=== PATIENT | female | born 1945 | race Caucasian/White ===

== ENCOUNTER 2016-12-22 11:08 | Inpatient (IN) | payer MEDICAID, MEDICARE ==
[~2016-12-22] VITALS: Ht 154.9 cm; Wt 46.5 kg
[~2016-12-22 11:08] MED LIST: ALBU17IN INH; ASPI81TA4 PO; BENZ100C5 PO; BISA10SU PR; BUDESONIDE INH; CALCIUM+VIT D PO; FORMOTEROL INH; GABA100C PO; INSULANT SC; LISI5TAB PO; METFORMIN PO; METO12TA PO; NICO14PA EXT; OXYBUTYNIN PO; PRIL20CA PO; SIMV20TA2 PO; TRAMADOL PO; VENTAER INH; [UNRECOGNIZED DRUG - OTHER] INH
[2016-12-22 12:12] LABS: BASO % 0.3 % (0.0-1.0); EOS % 0.4 % (0.0-3.0); LARGE UNSTAINED CELL # 0.3 K/mm3 (0.0-0.4); LARGE UNSTAINED CELL % 2.5 % (0.0-4.0); LYMPH # 1.2 K/mm3 (1.5-4.5); LYMPH % 10.9 % (24.0-44.0); MEAN CORPUSCULAR HEMOGLOBIN 29.9 pg (27.0-33.0); MEAN CORPUSCULAR HGB CONC 33.5 g/dl (32.0-36.5); MEAN CORPUSCULAR VOLUME 89.2 fl (80.0-96.0); MONO # 0.6 K/mm3 (0.0-0.8); MONO % 5.5 % (0.0-5.0); NEUTROPHILS # 8.7 K/mm3 (1.8-7.7); NEUTROPHILS % 80.4 % (36.0-66.0); PLATELET COUNT, AUTOMATED 625 k/mm3 (150-450); RED CELL DISTRIBUTION WIDTH 12.2 % (11.5-14.5); WHITE BLOOD COUNT 10.9 K/mm3 (4.0-10.0)
--- NOTE | 2016-12-22 12:19 | REP ---
Clinical: Cough. Technique: PA chest. Comparison: 01/03/2016. Findings: Mediastinum and cardiac silhouette are normal. Lung mancia are clear without acute consolidation, effusion, or pneumothorax. Skeletal structures demonstrate degenerative changes to the thoracic spine. Impression: No obvious acute cardiopulmonary process. Signed by Mau Hopper MD 12/22/2016 12:11 P
--- NOTE | 2016-12-22 12:21 | REP ---
CT HEAD WITHOUT CONTRAST: HISTORY: Altered mental status. Areas of decreased attenuation are present in the periventricular and subcortical white matter. This represents small vessel ischemic disease. There is no intraparenchymal hemorrhage, mass or midline shift. The ventricular system and cortical sulci are dilated consistent with minimal volume loss. There is no extracerebral collection. Mucosal thickening is present in the ethmoid, frontal and maxillary sinuses. IMPRESSION: 1. Small vessel ischemic disease. 2. Minimal volume loss. Signed by Jt Ocampo MD 12/22/2016 12:47 P
[2016-12-22 12:34] LABS: ALBUMIN/GLOBULIN RATIO 0.58 (1.00-1.93); ALKALINE PHOSPHATASE 87 U/L (45-117); ALT/SGPT 17 U/L (12-78); ANION GAP 11 MEQ/L (8-16); AST/SGOT 17 U/L (15-37); BILIRUBIN,DIRECT 0.2 MG/DL (0.0-0.2); BILIRUBIN,TOTAL 0.7 MG/DL (0.2-1.0); BLOOD UREA NITROGEN 17 MG/DL (7-18); CALCIUM LEVEL 9.6 MG/DL (8.8-10.2); CARBON DIOXIDE LEVEL 26 MEQ/L (21-32); CHLORIDE LEVEL 100 MEQ/L (98-107); CREATININE FOR GFR 0.73 MG/DL (0.55-1.02); GLOMERULAR FILTRATION RATE > 60.0 (>39); GLUCOSE, FASTING 181 MG/DL (83-110); POTASSIUM SERUM 4.4 MEQ/L (3.5-5.1); SODIUM LEVEL 137 MEQ/L (136-145); TOTAL PROTEIN 8.2 GM/DL (6.4-8.2)
--- NOTE | 2016-12-22 14:55 | REP ---
Clinical: Trauma. Technique: Single AP view of the pelvis. Findings: Age-related osteopenia and degenerative changes including diffuse and is up at the appears symmetric. No acute fracture or dislocation. Impression: Age-related osteopenia and degenerative changes. No acute fracture dislocation identified. Signed by Mau Hopper MD 12/22/2016 02:47 P
[2016-12-22 17:52] LABS: ABG BASE EXCESS 0.4 (-2.0-2.0); ABG DEVICE NASAL CANN; ABG HCO3 23.3 MEQ/L (22.0-26.0); ABG PARTIAL PRESSURE CO2 32.2 mmHg (35.0-45.0); ABG PARTIAL PRESSURE O2 164.3 mmHg (75.0-100.0); ABG STANDARD HCO3 24.9 MEQ/L (22.0-26.0); ABG TOTAL CO2 24.3 MEQ/L (23.0-31.0); ABG pH (ARTERIAL) 7.477 UNITS (7.350-7.450)
[2016-12-22] MEDS ORDERED: ACETAMINOPHEN TAB 650MG DOSE (2X325MG) PO PRN (19:30)
[2016-12-22] MEDS ORDERED: ONDANSETRON 4MG/2ML VIAL (J2405) IV PRN (19:30)
[2016-12-22 19:48] LABS: AMPHETAMINES LEVEL URINE NEGATIVE (NEGATIVE); BENZODIAZEPINES URINE NEGATIVE (NEGATIVE); COCAINE METABOLITE URINE NEGATIVE (NEGATIVE); CONTROL LINE INT CTR LINE PRESENT; METHADONE URINE NEGATIVE (NEGATIVE); OPIATES URINE NEGATIVE (NEGATIVE); TRICYCLIC ANTIDEPRESS URINE NEGATIVE (NEGATIVE)
[2016-12-22] MEDS ORDERED: TRAM50TA2 PO (19:55)
[2016-12-22] MEDS ORDERED: OXYB5TA PO (19:55)
[2016-12-22] MEDS ORDERED: ASPI1TAB PO (19:55)
[2016-12-22] MEDS ORDERED: GABA600T PO (19:55)
[2016-12-22] MEDS ORDERED: LISI-542 PO (19:55)
[2016-12-22] MEDS ORDERED: CETI10TA PO (19:55)
[2016-12-22] MEDS ORDERED: INSULANT SC (19:55)
[2016-12-22] MEDS ORDERED: CRES20TA PO (19:55)
[2016-12-22] MEDS ORDERED: SYMB16INH INH (19:55)
[2016-12-22] MEDS ORDERED: VITA100066 PO (19:55)
[2016-12-22] MEDS ORDERED: OMEP40CA2 PO (19:55)
[2016-12-22] MEDS ORDERED: DONETAB5 PO (19:55)
[2016-12-22] MEDS ORDERED: ANOR1AER INH (19:55)
[2016-12-22] MEDS ORDERED: DRIS50002 PO (19:55)
--- NOTE | 2016-12-22 20:40 | REPUSA ---
MRI of the brain Clinical history: altered mental status. Technique: Multiecho multiplanar MRI images of the brain were obtained without administration of cont rast. Diffusion weighted images with ADC mapping was also obtained. Findings: The ventricles and sulci are symmetric bilaterally. The brain parenchyma demonstrates T2 hyperintensi ty in the periventricular and subcortical white matter bilaterally. There is no midline shift, mass e ffect, or extra-axial fluid collection. The midline intracranial structures do not demonstrate any gr oss abnormalities. The cervical cranial junction is intact. The orbits are unremarkable. There is com plete fluid opacification of the maxillary sinuses bilaterally. The mastoid air cells are clear. The osseous structures and superficial soft tissues are unremarkable. The vascular structures demonstrate appropriate flow voids. Impression: 1. No evidence of acute infarct. 2. Mild chronic small vessel ischemic changes. 3. Bilateral maxillary sinusitis. The hospitalist was notified of these findings at 8:37 PM on 12/22/2016.
[2016-12-22] MEDS ORDERED: traMADol 50 MG TAB PO PRN (20:45)
[2016-12-22] MEDS ORDERED: GLUCAGON FOR INJ 1 MG VIAL (J1610) SC PRN (20:45)
[2016-12-22] MEDS ORDERED: DEXTROSE 50% 50 ML SYRINGE IV PRN (20:45)
[2016-12-22] MEDS ORDERED: GLUCOSE 4 GM CHEW TABLET PO PRN (20:45)
--- NOTE | 2016-12-22 20:50 | REPUSA ---
MRA of the brain Clinical history: altered mental status. Technique: [id number] MRA images of the brain were obtained without administration of contrast. 3 -D MIP images were also obtained. Findings: The images are suboptimal, likely because of patient motion during the scan. The visualized portions of the vascular structures extending from the distal carotid and vertebrobasilar arterial s ystems, through the [place], demonstrate normal caliber and contour. There is no evidence of aneurysm, stenosis, or thrombosis. Impression: No gross abnormality on this suboptimal study as described. The hospitalist was notified of these findings at 8:30 PM on 12/22/2016.
[2016-12-22] MEDS ORDERED: traMADol 50 MG TAB As Ordered ONE (21:16)
--- NOTE | 2016-12-22 22:26 | HPE ---
DATE OF ADMISSION: 12/22/2016 INPATIENT HOSPITALIST ATTENDING: Dr. Mario Felton CHIEF COMPLAINT: Confusion. HISTORY OF PRESENT ILLNESS: This is a 71-year-old female with a history of type 2 diabetes, insulin dependent, reflux, hypercholesterolemia, diabetic neuropathy , tubal ligation, dilatation and curettage, left leg skin cancer, bilateral cataract surgery, active smoker of a half of a pack per day for several years, who presents to the emergency room after being brought in by family due to increasing confusion. According to the patient, she had been having a cough for the past week. No fever or chills. White-yellow sputum. Complains of nasal congestion without nausea or vomiting, diarrhea. Denies dysuria, urgency, frequency, fever, chills, abdominal pain, constipation or diarrhea. The patient was brought in by family and was found to have bilateral maxillary sinusitis on MRI.Laboratory data showed slight increase in white count, 10.9, otherwise metabolic panel is unremarkable. The hospitalist service was called for admission for evaluation of altered mental status. The patient is disoriented, states that it is December. Was able to say that it is 2016. She is confused with baseline dementia. Unable to obtain a full history. PAST MEDICAL HISTORY: 1. Insulin-dependent diabetes. 2. Reflux. 3. Hypercholesterolemia. 4. Neuropathy. 5. Dementia. 6. Left leg cancer. PAST SURGICAL HISTORY: 1. Left leg cancer of the skin. 2. Tubal ligation. 3. Dilatation and curettage. 4. Bilateral cataract surgery. ALLERGIES: DOXYCYCLINE. HOME MEDICATIONS: - donepezil 5 daily - cetirizine 10 daily - oxybutynin 5 mg twice a day - gabapentin 600 three times a day - tramadol 50 three times a day - Lantus insulin unknown dose daily - vitamin D over the counter, unknown dose - aspirin 81 mg daily - Prilosec 40 daily - Crestor 20 daily - Lisinopril 5 daily SOCIAL HISTORY: The patient lives at home with daughter, Mary, phone number [phone]. Actively smokes cigarettes, less than a half of a pack per day since her teens. The patient is retired, could not tell us what kind of work she used do. FAMILY HISTORY: Noncontributory due to age. REVIEW OF SYSTEMS: As per history of present illness, the patient is somewhat disoriented, could not provide a full review of systems. PHYSICAL EXAMINATION: VITAL SIGNS: Blood pressure 105/59, pulse 104 and sinus, respiratory rate 20, temperature 97.2, 97% on room air, 48.9 kg, 5 feet 1 inch tall. GENERAL: The patient is awake, alert, oriented to person only. Disoriented to time and place. Pupils are round and reactive. Extraocular muscles are intact. Normocephalic, atraumatic. Patient has maxillary tenderness bilaterally. No pallor. No icterus. No jaundice. No jugular venous distention (JVD). LUNGS: Clear to auscultation. No wheezing, rales or rhonchi. HEART: S1, S2. Sinus rhythm. ABDOMEN: Soft, nontender, nondistended. Positive bowel sounds. EXTREMITIES: No cyanosis, clubbing or pitting edema. LABORATORY DATA: wbc 10.9 hgb 13 hct 41 plt 625 na 137 k 4.4 cl 100 bicarb 26 bun17 creat 0.73 gluc 181 ca 9.6 total bili 0.7 d bili 0.2 ast 17 alt 17 alk phos 87 ammonia <10 total ck 93 ckmb1.6 ck mb rel indxc 2.19 trop 0.11 EKG: Sinus with a ventricular rate of 77, intraventricular conduction delay and left ventricular hypertrophy. CT of the head: Small vessel ischemic disease, minimal volume loss. MRI of the brain showing chronic small vessel ischemic disease, bilateral maxillary sinusitis. AP view of the pelvis x-ray: Age related osteopenia, degenerative changes. No acute fracture or dislocation. Chest x-ray: Lung mancia are clear. No obvious acute cardiopulmonary process. ASSESSMENT AND PLAN: 71-year-old female with a history of type 2 diabetes on insulin, reflux, hypercholesterolemia, neuropathy, dementia, left leg skin cancer, tubal ligation, dilatation and curettage, cataract surgery bilaterally, active smoker, presents to the emergency room, brought in by family due to confusion. The patient states that she has had a cough for the past one week with white-yellow sputum production. Found on MRI to have bilateral acute sinusitis. The patient is disoriented to time and place. Admitted to the hospitalist service, Dr. Mario Felton, for two midnights for the following issues: 1. Acute mental status changes, most likely secondary to infection. The patient has complaints of cough productive of yellow-white sputum. MRI shows bilateral maxillary sinusitis. She will be treated with Augmentin 875 mg by mouth twice a day for a 7 day course. Obtain a sputum culture. Chest x-ray is negative, most likely bronchitis. Nebulizer treatments as needed. Supplemental oxygen if saturations are less than 88%. UA is unremarkable. The patient will be medically stable on the medical/surgical floor. 2. Type 2 diabetes. Glucose level was normal on laboratory data. Continue on Lantus insulin, sliding scale, and consistent carbohydrate diet. Continue on aspirin. 3. Hypertension. Continue on Lisinopril. Monitor for low blood pressure, orthostatics and elevated creatinine. 4. Hyperlipidemia. Continue on Crestor. 5. History of reflux. Continue on omeprazole. 6. Diabetic neuropathy. Continue on gabapentin. 7. Dementia. Continue home medications. 8. Deep vein thrombosis (DVT) prophylaxis with Lovenox renal dosing according to age. The patient will be assigned to Dr. Mario Felton in the morning. [facility]
[2016-12-22 22:55] VITALS: BP 137/65
--- NOTE | 2016-12-22 22:55 | EDDOCDS ---
Nurse's Notes [facility] Name: Arti Young Age: 71 yrs Sex: Female : 1945 Arrival Date: 12/22/2016 Time: 11:08 Bed 1 Private MD: Diagnosis: Altered mental status, unspecified Presentation: 12/22 11:16 Presenting complaint: Patient states: im not quite coherent- started today. legs hurt. [facility] Adult Sepsis Screening: Patient has new or worsening altered mentation (1 point). Patient's respiratory rate is less than 22. Systolic blood pressure is greater than 100. Patient has a qSOFA score of 0- Negative Sepsis Screen. Suicide/Homicide risk assessment- the patient denies having any suicidal and/or homicidal ideations and does not present with any other emotional, behavioral or mental health complaints. Status: Patient is not a support services tech or dependent. Transition of care: patient was not received from another setting of care. 11:16 Method Of Arrival: Walkin/Carried/Asstd [facility] 11:16 Acuity: ELADIO Level 3 [facility] 11:22 Presenting complaint: Patient states: cough and cold symptoms for a few days. [facility] Triage Assessment: 11:22 General: Appears in no apparent distress, Behavior is appropriate for age, cooperative. [facility] Pain: Pain currently is 6 out of 10 on a pain scale. Neurological: Level of Consciousness is awake, alert, Oriented to person, place, Speech is normal, slow to answer questions. Facial symmetry appears normal. Historical: - Allergies: DOXACILLIN; - Home Meds: 1. donepezil 5 mg oral TbDL 1 tab once daily (Last dose: 12/21/2016) 2. cetirizine 10 mg oral tab 1 tab once daily (Last dose: 12/21/2016) 3. oxybutynin chloride 5 mg Oral tab 1 tab 2 times per day (Last dose: 12/21/2016) 4. anoro daily 5. gabapentin 600 mg Oral tab 1 tab 3 times per day 6. tramadol 50 mg Oral tab three times a day 7. Lantus 100 unit/mL Sub-Q soln Unknown daily 8. Vitamin D Oral Unknown daily OTC med 9. aspirin 81 mg Oral chew 1 tab nightly 10. omeprazole 40 mg Oral cpDR 1 cap once daily 11. Crestor 20 mg Oral tab 1 tab once daily 12. lisinopril 5 mg Oral tab 1 tab once daily - PMHx: Diabetes - IDDM: controlled; GERD; Hypercholesterolemia; neuropathy; - PSHx: left leg cancer skin; Tubal ligation; D & C; Cataract Surgery- Bilateral; - Social history: Smoking status: Patient uses tobacco products, current every day smoker. No barriers to communication noted. - Family history: Not pertinent. - : The pt / caregiver states he / she is not on anticoagulants. Home medication list is obtained from the patient. - Exposure Risk Screening:: None identified. Screenin:14 No information. lr2 12:10 Screening information is obtained from the patient. Fall risk: At risk due to apparent ck1 cognitive impairment, The following interventions are performed due to a positive Fall Risk Screen: Fall Risk is added to Special Handling on the patient Summary Screen. A Fall Risk Bracelet was applied to the patient. Side Rails are placed in the up position. A Call [place] is given with instruction to call for help when getting out of bed. Fall Alert bracelet is placed on the patient. Assistance ADL's: Requires assistance with meal preparation, this assistance is provided by family members, bathing, assistance is provided by family members, dressing, assistance is provided by family members, toileting, assistance is provided by family members, ambulation, assistance is provided by family members, housework, assistance is provided by family members, medication administration, assistance is provided by family members. Abuse/DV Screen: The patient / caregiver reports he/she is: not in a situation that causes fear, pain or injury. Nutritional screening: No deficits noted. home support is adequate. 12:11 Advance Directives: There is no active DNR order. ck1 Assessment: 12:11 General: Appears in no apparent distress, comfortable, Behavior is appropriate for age, ck1 cooperative. Pain: Location: left hip and right hip Is chronic. Neurological: Level of Consciousness is awake, Oriented to person, place. Cardiovascular: Rhythm is sinus rhythm Chest pain is denied. Respiratory: Respiratory effort is unlabored, Respiratory pattern is regular, symmetrical, Reports cough that is productive. GI: No deficits noted. Derm: Skin is intact, is fragile, is thin, Skin is pink, warm & dry. 13:19 General: Appears in no apparent distress, comfortable, talking on phone . Neurological: dsf Level of Consciousness is awake, alert. Cardiovascular: Rhythm is sinus rhythm. Respiratory: Airway is patent Respiratory effort is unlabored, Respiratory pattern is regular, symmetrical. Derm: Skin is pink, warm & dry. 14:15 General: Appears in no apparent distress, comfortable, Behavior is appropriate for age, ck1 cooperative. Pain: Location: right hip and left hip Is chronic. Neurological: Level of Consciousness is awake, alert, obeys commands, Oriented to person, place. Cardiovascular: Rhythm is sinus rhythm Chest pain is denied. Respiratory: Respiratory effort is unlabored, Respiratory pattern is regular, symmetrical. GI: No deficits noted. Derm: Skin is intact, is fragile, is thin, Skin is pink, warm & dry. 15:00 General: Patient is sitting up on stretcher eating lunch. No acute distress noted at ck1 this time. Call light in reach, will continue to monitor patient. 15:33 General: Appears in no apparent distress, comfortable, Behavior is appropriate for age, ck1 cooperative. Pain: Denies pain. Neurological: Level of Consciousness is awake, alert, obeys commands. Cardiovascular: Rhythm is sinus rhythm Chest pain is denied. GI: other tolerated diet tray without difficulty. Derm: Skin is intact, is fragile, is thin, Skin is pink, warm & dry. 16:30 General: Appears in no apparent distress, comfortable, Behavior is appropriate for age, ck1 cooperative. Pain: Denies pain. Neurological: Level of Consciousness is awake, alert, obeys commands, Oriented to person, place. Cardiovascular: Rhythm is sinus rhythm Chest pain is denied. Respiratory: Respiratory effort is unlabored, Respiratory pattern is regular, symmetrical. GI: No deficits noted. Derm: Skin is pink, warm & dry. 17:30 Reassessment: Patient appears in no apparent distress at this time. ck1 18:06 General: Patient is resting quietly on stretcher. Requesting to speak with daughter on ck1 phone. Attempted to call daughter at home, no answer. patient informed that she will be admitted to hospital at least over night for observation. Patient verbalized understanding. No acute distress noted at this time. Call light in reach, will continue to monitor patient. Vital Signs: 11:01 BP 105 / 59 (auto/); ck1 11:02 Pulse 104 MON; Pulse Ox 97% ; ck1 11:10 BP 174 / 67; Pulse 90; Resp 20; Temp 97.2(O); Pulse Ox 94% on R/A; Weight 48.99 kg (R); lr2 Height 5 ft. 1 in. (154.94 cm); 12:00 BP 143 / 67 (auto/); ck1 12:02 Pulse 76 MON; Pulse Ox 100% ; ck1 12:15 BP 144 / 63 (auto/); ck1 12:15 Pulse 74 MON; Pulse Ox 98% ; ck1 12:30 BP 147 / 65 (auto/); ck1 12:30 Pulse 76 MON; Pulse Ox 100% ; ck1 12:45 BP 151 / 72 (auto/); ck1 12:45 Pulse 84 MON; Pulse Ox 100% ; ck1 13:00 BP 140 / 63 (auto/); ck1 13:00 Pulse 72 MON; Pulse Ox 100% ; ck1 13:15 BP 146 / 67 (auto/); ck1 13:15 Pulse 83 MON; Pulse Ox 100% ; ck1 13:30 BP 161 / 71 (auto/); ck1 13:30 Pulse 78 MON; Pulse Ox 100% ; ck1 13:44 Pulse 78 MON; Pulse Ox 96% ; ck1 13:45 BP 151 / 67 (auto/); ck1 14:00 BP 170 / 66 (auto/); ck1 14:00 Pulse 74 MON; ck1 14:15 BP 157 / 60 (auto/); ck1 14:15 Pulse 73 MON; Pulse Ox 100% ; ck1 14:36 BP 169 / 65 (auto/); ck1 14:36 Pulse 80 MON; Pulse Ox 98% ; ck1 14:51 BP 143 / 66 (auto/); ck1 14:51 Pulse 74 MON; Pulse Ox 100% ; ck1 15:06 BP 164 / 72 (auto/); ck1 15:06 Pulse 84 MON; Pulse Ox 100% ; ck1 15:21 BP 165 / 70 (auto/); ck1 15:21 Pulse 80 MON; Pulse Ox 100% ; ck1 15:36 Resp 18; Temp 97.6(O); ck1 15:36 BP 153 / 67 (auto/); ck1 15:36 Pulse 73 MON; Pulse Ox 100% ; ck1 15:39 Pulse 72 MON; Pulse Ox 100% ; ck1 15:51 BP 152 / 67 (auto/); ck1 15:51 Pulse 77 MON; ck1 16:05 Pulse 71 MON; Pulse Ox 100% ; ck1 16:06 BP 144 / 64 (auto/); ck1 16:21 BP 164 / 82 (auto/); ck1 16:21 Pulse 86 MON; Pulse Ox 100% ; ck1 16:36 BP 150 / 62 (auto/); ck1 16:38 Pulse 77 MON; Pulse Ox 100% ; ck1 16:51 BP 150 / 67 (auto/); ck1 16:51 Pulse 76 MON; Pulse Ox 100% ; ck1 17:06 BP 148 / 67 (auto/); ck1 17:06 Pulse 72 MON; Pulse Ox 100% ; ck1 17:21 BP 153 / 68 (auto/); ck1 17:21 Pulse 79 MON; Pulse Ox 100% ; ck1 17:30 Pulse 77 MON; Pulse Ox 100% ; ck1 17:35 Pulse 78 MON; ck1 17:36 BP 152 / 63 (auto/); ck1 18:01 BP 167 / 73 (auto/); ck1 18:01 Pulse 75 MON; Pulse Ox 100% ; ck1 11:10 Body Mass Index 20.41 (48.99 kg, 154.94 cm) lr2 Vitals: 11:10 Log In Time: December 22, 2016 at 11:08. lr2 ED Course: 11:10 Patient visited by Kelly Ramirez. lr2 11:10 Patient moved to Waiting lr2 11:14 Patient moved to Pre RCE lr2 11:17 Triage Initiated srm 11:24 Patient moved to I9 / 22 srm 11:28 Ifrah Crocker MD is Attending Physician. sd1 11:28 Patient visited by Ifrah Crocker MD. sd1 11:43 Yanna Almazan,RN is Primary Nurse. mcp 11:43 Patient moved to 1 mcp 12:00 EKG done. (by ED staff). Reviewed by Ifrah Crocker MD. nb2 12:03 Patient visited by Kiana Chatman. nb2 12:09 BLOOD CULTURES Sent. ck1 12:09 Inserted saline lock: 20 gauge in right antecubital area and blood collected. The ck1 patient tolerated the procedure well. 12:12 The patient / caregiver is instructed regarding the plan of care and ED course. ck1 12:25 Chest, 1 View Returned. EDMS 12:25 CT Head Without Contrast Returned. EDMS 12:34 Patient visited by Yanna lAmazan,AARON. ck1 12:34 LIVER PROFILE Sent. ck1 13:05 Patient visited by Yanna Almazan RN. ck1 13:19 Patient visited by Maris Esteban RN. dsf 13:58 Patient visited by Yanna Almazan,AARON. ck1 14:08 CARDIAC INJURY PROFILE Sent. ms2 14:08 TROPONIN Sent. ms2 14:11 Patient visited by Yanna Almazan RN. ck1 14:42 Patient visited by Yanna Almazan,AARON. ck1 14:56 Diet tray given. ck1 15:29 Patient visited by Yanna Almazan RN. ck1 15:39 Pelvis Returned. EDMS 16:00 Patient visited by Yanna Almazan RN. ck1 16:08 [facility] Payment Agreement was scanned into [employer] and attached to record. zo 16:32 Patient visited by Yanna Almazan RN. ck1 17:36 Family spoke with Daughter Kaylee Billy, , went over MRI screen with mem daughter. Discussed mother's condition with daughter after speaking with Dr. Ifrah Ramires. Informed Kaylee that per Dr. Ramires, all labs are normal and ct is normal. We are keeping patient here as an admission to perform further testing. Daughter will come in to see her mother when able to obtain salesperson children's shoes. Daughter appreciative of the information given. Reassured daughter, patient will be well taken care of. 17:37 -Arterial Blood Gas Sent. km6 17:52 Patient visited by Yanna Almazan RN. ck1 18:01 Ammonia ([place] Tube on Ice, Not [place]a [place]) Sent. ck1 18:25 Patient visited by Yanna Almazan RN. ck1 18:42 Megan Arzola is Hospitalizing Provider. sd1 18:50 Primary Nurse role handed off by Yanna Almazan,AARON ck1 19:10 Mare Theodore,AARON is Primary Nurse. cf2 19:10 Patient visited by Mare Theodore RN. cf2 19:28 Urine Toxicology Sent. cf2 20:07 Patient visited by Mare Theodore,AARON. cf2 20:22 Patient visited by Mare Theodore,AARON. cf2 20:24 No procedures done that require assistance. cf2 20:36 Patient visited by Nilda Brock PCA. rs6 21:08 -MRI-Brain without Returned. EDMS 21:08 -MRA-Brain without contrast Returned. EDMS 21:41 UA Sent. cf2 21:41 Urine Culture Sent. cf2 22:43 Patient visited by Mare Theodore,AARON. cf2 Administered Medications: 12:09 Drug: NS 0.9% 1000 ml [sodium chloride 0.9 % intravenous solution] Route: IV; Rate: 250 ck1 mL/hr; Site: right antecubital; 16:32 Follow up: IV Status: Completed infusion ck1 21:22 Drug: traMADol 50 mg [tramadol 50 mg tablet (1 tabs)] Route: PO; cf2 22:05 Follow up: Response: No significant change. cf2 RT: 17:37 ABG's drawn from right radial artery allens test done and positive pressure held for 5 km6 minutes specimen sent pt. tolerated well. Order Results: Lab Order: B-Type Natiuretic Peptide; SPEC'M 12/22/16 12:01 Test: BRAIN NATRIURETIC PEPTIDE; Value: 119; Range: <100; Abnormal: Above high normal; Units: PG/ML; Status: F Lab Order: Basic Metabolic Profile; SPEC'M 12/22/16 12:01 Test: GLUCOSE, FASTING; Value: 181; Range: 83-110; Abnormal: Above high normal; Units: MG/DL; Status: F Test: BLOOD UREA NITROGEN; Value: 17; Range: 7-18; Units: MG/DL; Status: F Test: CREATININE FOR GFR; Value: 0.73; Range: 0.55-1.02; Units: MG/DL; Status: F Test: GLOMERULAR FILTRATION RATE; Value: > 60.0; Range: >39; Status: F Test: SODIUM LEVEL; Value: 137; Range: 136-145; Units: MEQ/L; Status: F Test: POTASSIUM SERUM; Value: 4.4; Range: 3.5-5.1; Units: MEQ/L; Status: F Test: CHLORIDE LEVEL; Value: 100; Range: 98-107; Units: MEQ/L; Status: F Test: CARBON DIOXIDE LEVEL; Value: 26; Range: 21-32; Units: MEQ/L; Status: F Test: ANION GAP; Value: 11; Range: 8-16; Units: MEQ/L; Status: F Test: CALCIUM LEVEL; Value: 9.6; Range: 8.8-10.2; Units: MG/DL; Status: F Test Note: ; Units are mL/min/1.73 m2 Chronic Kidney Disease Staging per NKF: Stage I & II GFR >=60 Normal to Mildly Decreased Stage III GFR 30-59 Moderately Decreased Stage IV GFR 15-29 Severely Decreased Stage V GFR <15 Very Little GFR Left ESRD GFR <15 on MONOTYPE OPERATOR Lab Order: CBC with Diff; SPEC'M 12/22/16 12:01 Test: WHITE BLOOD COUNT; Value: 10.9; Range: 4.0-10.0; Abnormal: Above high normal; Units: K/mm3; Status: F Test: RED BLOOD COUNT; Value: 4.64; Range: 4.00-5.40; Units: M/mm3; Status: F Test: HEMOGLOBIN; Value: 13.9; Range: 12.0-16.0; Units: g/dl; Status: F Test: HEMATOCRIT; Value: 41.4; Range: 36.0-47.0; Units: %; Status: F Test: MEAN CORPUSCULAR VOLUME; Value: 89.2; Range: 80.0-96.0; Units: fl; Status: F Test: MEAN CORPUSCULAR HEMOGLOBIN; Value: 29.9; Range: 27.0-33.0; Units: pg; Status: F Test: MEAN CORPUSCULAR HGB CONC; Value: 33.5; Range: 32.0-36.5; Units: g/dl; Status: F Test: RED CELL DISTRIBUTION WIDTH; Value: 12.2; Range: 11.5-14.5; Units: %; Status: F Test: PLATELET COUNT, AUTOMATED; Value: 625; Range: 150-450; Abnormal: Above high normal; Units: k/mm3; Status: F Test: NEUTROPHILS %; Value: 80.4; Range: 36.0-66.0; Abnormal: Above high normal; Units: %; Status: F Test: LYMPH %; Value: 10.9; Range: 24.0-44.0; Abnormal: Below low normal; Units: %; Status: F Test: MONO %; Value: 5.5; Range: 0.0-5.0; Abnormal: Above high normal; Units: %; Status: F Test: EOS %; Value: 0.4; Range: 0.0-3.0; Units: %; Status: F Test: BASO %; Value: 0.3; Range: 0.0-1.0; Units: %; Status: F Test: LARGE UNSTAINED CELL %; Value: 2.5; Range: 0.0-4.0; Units: %; Status: F Test: NEUTROPHILS #; Value: 8.7; Range: 1.8-7.7; Abnormal: Above high normal; Units: K/mm3; Status: F Test: LYMPH #; Value: 1.2; Range: 1.5-4.5; Abnormal: Below low normal; Units: K/mm3; Status: F Test: MONO #; Value: 0.6; Range: 0.0-0.8; Units: K/mm3; Status: F Test: EOS #; Value: 0.0; Range: 0.0-0.50; Units: K/mm3; Status: F Test: BASO #; Value: 0.0; Range: 0.0-0.2; Units: K/mm3; Status: F Test: LARGE UNSTAINED CELL #; Value: 0.3; Range: 0.0-0.4; Units: K/mm3; Status: F Lab Order: Cardiac Injury Profile; SPEC'M 12/22/16 12:01 Test: CPK CREATINE PHOSPHOKINASE; Value: 73; Range: 26-192; Units: U/L; Status: F Test: CK-MB VALUE MASS; Value: 1.6; Range: 0.0-3.6; Units: NG/ML; Status: F Test: MB/CK RELATIVE INDEX; Value: 2.19; Range: < OR =4; Status: F Test Note: ; DIAGNOSIS CRITERIA MMB ng/ml Relative Index (RI) NON-AMI < or = 5 N/A HERRERA ZONE > 5 < or = 4 AMI > 5 > 4 Lab Order: Troponin; [facility] 12/22/16 12:01 Test: TROPONIN I; Value: 0.11; Range: < 0.10; Abnormal: Above high normal; Units: NG/ML; Status: F Test Note: ; Troponin I Reference Interval for [employer]: 99th Percentile= 0.00-0.045 ng/ml Risk Stratification: <= 0.10 ng/ml Decreased Risk for Adverse Clinical Events. 0.10-1.50 ng/ml Increased Risk for Adverse Clinical Events. Evaluation of additional criterion and/or repeat testing in 2-6 hours is suggested to rule out myocardial damage. >= 1.50 ng/ml Indicative of Myocardial Injury. Lab Order: LIVER PROFILE; [facility] 12/22/16 12:01 Test: AST/SGOT; Value: 17; Range: 15-37; Units: U/L; Status: F Test: ALT/SGPT; Value: 17; Range: 12-78; Units: U/L; Status: F Test: ALKALINE PHOSPHATASE; Value: 87; Range: 45-117; Units: U/L; Status: F Test: BILIRUBIN,TOTAL; Value: 0.7; Range: 0.2-1.0; Units: MG/DL; Status: F Test: BILIRUBIN,DIRECT; Value: 0.2; Range: 0.0-0.2; Units: MG/DL; Status: F Test: TOTAL PROTEIN; Value: 8.2; Range: 6.4-8.2; Units: GM/DL; Status: F Test: ALBUMIN; Value: 3.0; Range: 3.2-5.2; Abnormal: Below low normal; Units: GM/DL; Status: F Test: ALBUMIN/GLOBULIN RATIO; Value: 0.58; Range: 1.00-1.93; Abnormal: Below low normal; Status: F Lab Order: TROPONIN; [facility] 12/22/16 14:03 Test: TROPONIN I; Value: 0.09; Range: < 0.10; Units: NG/ML; Status: F Test Note: ; Troponin I Reference Interval for [employer]: 99th Percentile= 0.00-0.045 ng/ml Risk Stratification: <= 0.10 ng/ml Decreased Risk for Adverse Clinical Events. 0.10-1.50 ng/ml Increased Risk for Adverse Clinical Events. Evaluation of additional criterion and/or repeat testing in 2-6 hours is suggested to rule out myocardial damage. >= 1.50 ng/ml Indicative of Myocardial Injury. Lab Order: CARDIAC INJURY PROFILE; SPEC'[facility] 12/22/16 14:03 Test: CPK CREATINE PHOSPHOKINASE; Value: 74; Range: 26-192; Units: U/L; Status: F Test: CK-MB VALUE MASS; Value: 1.9; Range: 0.0-3.6; Units: NG/ML; Status: F Test: MB/CK RELATIVE INDEX; Value: 2.56; Range: < OR =4; Status: F Test Note: ; DIAGNOSIS CRITERIA MMB ng/ml Relative Index (RI) NON-AMI < or = 5 N/A H[place]ERA ZONE > 5 < or = 4 AMI > 5 > 4 Lab Order: Urine Toxicology; SPEC'M 12/22/16 19:23 Test: AMPHETAMINES LEVEL URINE; Value: NEGATIVE; Range: NEGATIVE; Status: F Test: BARBITURATES URINE; Value: NEGATIVE; Range: NEGATIVE; Status: F Test: BENZODIAZEPINES URINE; Value: NEGATIVE; Range: NEGATIVE; Status: F Test: CANNABINOIDS URINE; Value: NEGATIVE; Range: NEGATIVE; Status: F Test: COCAINE METABOLITE URINE; Value: NEGATIVE; Range: NEGATIVE; Status: F Test: METHADONE URINE; Value: NEGATIVE; Range: NEGATIVE; Status: F Test: OPIATES URINE; Value: NEGATIVE; Range: NEGATIVE; Status: F Test: TRICYCLIC ANTIDEPRESS URINE; Value: NEGATIVE; Range: NEGATIVE; Status: F Test Note: ; ALL PRESUMPTIVE POSITIVE FINDINGS ARE UNCONFIRMED NORMAL VALUES THRESHOLD IN NG/ML AMPHETAMINES 1000 METHAMPHETAMINES 1000 BARBITURATES 300 BENZODIAZEPINES 300 CANNABINOIDS (THC) 50 COCAINE METABOLITE 300 METHADONE 300 OPIATES 300 PHENCYCLIDINE 25 TRICYCLIC ANTIDEPRESSANTS 1000 RESULTS ARE FOR MEDICAL PURPOSES ONLY. ALL URINE SPECIMENS WILL BE SAVED FOR 3 DAYS. IF CONFIRMATION OF A PRESUMPTIVE POSTIVE SCREEN RESULT IS DESIRED, CALL CHEMISTRY ([phone]) AND REQUEST URINE TO BE SENT TO REFERENCE LAB. FOR A LIST OF CLOSELY RELATED COMPOUNDS PLEASE CALL THE LAB. Lab Order: Ammonia ([place] Tube on Ice, Not [place]); [facility] 12/22/16 18:00 Test: AMMONIA; Value: < 10; Range: <32; Units: uMOL/L; Status: F Lab Order: -Arterial Blood Gas; [facility] 12/22/16 17:33 Test: ABG pH (ARTERIAL); Value: 7.477; Range: 7.350-7.450; Abnormal: Above high normal; Units: UNITS; Status: F Test: ABG PARTIAL PRESSURE CO2; Value: 32.2; Range: 35.0-45.0; Abnormal: Below low normal; Units: mmHg; Status: F Test: ABG PARTIAL PRESSURE O2; Value: 164.3; Range: 75.0-100.0; Abnormal: Above high normal; Units: mmHg; Status: F Test: ABG TOTAL CO2; Value: 24.3; Range: 23.0-31.0; Units: MEQ/L; Status: F Test: ABG HCO3; Value: 23.3; Range: 22.0-26.0; Units: MEQ/L; Status: F Test: ABG BASE EXCESS; Value: 0.4; Range: -2.0-2.0; Status: F Test: ABG STANDARD HCO3; Value: 24.9; Range: 22.0-26.0; Units: MEQ/L; Status: F Test: ABG O2 SATURATION; Value: 99.3; Range: 95.0-99.0; Abnormal: Above high normal; Units: %; Status: F Test: ABG DEVICE; Value: NASAL BIRDIE; Status: F Lab Order: UA; [facility] 12/22/16 19:23 Test: APPEARANCE, URINE; Value: HAZY; Range: CLEAR; Status: F Test: COLOR, URINE; Value: YELLOW; Range: YELLOW; Status: F Test: PH,URINE; Value: 6.0; Range: 5.0-9.0; Units: UNITS; Status: F Test: SPECIFIC GRAVITY URINE AUTO; Value: 1.018; Range: 1.002-1.035; Status: F Test: PROTEIN, URINE AUTO; Value: 2+; Range: NEGATIVE; Abnormal: Above high normal; Units: mg/dL; Status: F Test: GLUCOSE, URINE (UA) AUTO; Value: 3+; Range: NEGATIVE; Abnormal: Above high normal; Units: mg/dL; Status: F Test: KETONE, URINE AUTO; Value: 1+; Range: NEGATIVE; Abnormal: Above high normal; Units: mg/dL; Status: F Test: UROBILINOGEN, URINE AUTO; Value: 0.2; Range: 0.0-2.0; Units: mg/dL; Status: F Test: BILIRUBIN, URINE AUTO; Value: NEGATIVE; Range: NEGATIVE; Status: F Test: NITRITE, URINE AUTO; Value: NEGATIVE; Range: NEGATIVE; Status: F Test: LEUKOCYTE ESTERASE, URINE AUTO; Value: 1+; Range: NEGATIVE; Abnormal: Above high normal; Status: F Test: BLOOD, URINE BLOOD; Value: 1+; Range: NEGATIVE; Abnormal: Above high normal; Status: F Test: WBC, URINE AUTO; Value: 13; Range: 0-3; Abnormal: Above high normal; Units: /HPF; Status: F Test: RBC, URINE AUTO; Value: 8; Range: 0-3; Abnormal: Above high normal; Units: /HPF; Status: F Test: BACTERIA, URINE AUTO; Value: 1+; Range: NEGATIVE; Abnormal: Above high normal; Status: F Test: SQUAMOUS EPITHELIAL CELL UR AU; Value: 2; Range: 0-6; Units: /HPF; Status: F Test: MUCUS, URINE; Value: MODERATE; Range: NEGATIVE; Status: F Test: HYALINE CAST, URINE AUTO; Value: 4; Range: 0-1; Units: /LPF; Status: F Radiology Order: Chest, 1 View Test: Chest, 1 View REASON FOR EXAMINATION: Cough; Clinical: Cough.; ; Technique: PA chest.; ; Comparison: 01/03/2016.; ; Findings:; Mediastinum and cardiac silhouette are normal. Lung mancia are clear without; acute consolidation, effusion, or pneumothorax. Skeletal structures demonstrate; degenerative changes to the thoracic spine.; ; Impression:; No obvious acute cardiopulmonary process.; ; ; Signed by; Mau Hopper MD 12/22/2016 12:11 P; Radiology Order: CT Head Without Contrast Test: CT Head Without Contrast REASON FOR EXAMINATION: altered mental status; CT HEAD WITHOUT CONTRAST:; ; HISTORY: Altered mental status.; ; Areas of decreased attenuation are present in the periventricular and subcortical; white matter. This represents small vessel ischemic disease. There is no; intraparenchymal hemorrhage, mass or midline shift. The ventricular system and; cortical sulci are dilated consistent with minimal volume loss. There is no; extracerebral collection. Mucosal thickening is present in the ethmoid, frontal; and maxillary sinuses.; ; IMPRESSION:; ; 1. Small vessel ischemic disease.; ; 2. Minimal volume loss.; ; ; Signed by; Jt Ocampo MD 12/22/2016 12:47 P; Radiology Order: Pelvis Test: Pelvis REASON FOR EXAMINATION: Trauma; Clinical: Trauma.; ; Technique: Single AP view of the pelvis.; ; Findings:; Age-related osteopenia and degenerative changes including diffuse and is up at; the appears symmetric. No acute fracture or dislocation.; ; Impression:; Age-related osteopenia and degenerative changes. No acute fracture dislocation; identified.; ; ; Signed by; Mau Hopper MD 12/22/2016 02:47 P; Radiology Order: -MRA-Brain without contrast Test: -MRA-Brain without contrast REASON FOR EXAMINATION: altered mental status; ; MRA of the brain; Clinical history: altered mental status.; Technique: [id number] MRA images of the brain were obtained without administration of contrast. 3; -D MIP images were also obtained.; Findings: The images are suboptimal, likely because of patient motion during the scan. The visualized; portions of the vascular structures extending from the distal carotid and vertebrobasilar arterial s; ystems, through the [place], demonstrate normal caliber and contour. There is no evidence of; aneurysm, stenosis, or thrombosis.; Impression: No gross abnormality on this suboptimal study as described.; The hospitalist was notified of these findings at 8:30 PM on 12/22/2016.; ; Radiology Order: -MRI-Brain without Test: -MRI-Brain without REASON FOR EXAMINATION: alterd mental status; ; MRI of the brain; Clinical history: altered mental status.; Technique: Multiecho multiplanar MRI images of the brain were obtained without administration of cont; rast. Diffusion weighted images with ADC mapping was also obtained.; Findings:; The ventricles and sulci are symmetric bilaterally. The brain parenchyma demonstrates T2 hyperintensi; ty in the periventricular and subcortical white matter bilaterally. There is no midline shift, mass e; ffect, or extra-axial fluid collection. The midline intracranial structures do not demonstrate any gr; oss abnormalities. The cervical cranial junction is intact. The orbits are unremarkable. There is com; plete fluid opacification of the maxillary sinuses bilaterally. The mastoid air cells are clear. The; osseous structures and superficial soft tissues are unremarkable. The vascular structures demonstrate; appropriate flow voids.; Impression:; 1. No evidence of acute infarct.; 2. Mild chronic small vessel ischemic changes.; 3. Bilateral maxillary sinusitis.; The hospitalist was notified of these findings at 8:37 PM on 12/22/2016.; ; Outcome: 14:21 CT Study completed. ck1 18:42 Decision to Hospitalize by Provider. sd1 20:24 Condition: stable. Property :Personal belongings accompany Pt. cf2 22:43 Discharge Assessment: Patient awake, alert and oriented x 3. No cognitive and/or cf2 functional deficits noted. Patient verbalized understanding of disposition instructions. Patient awake and alert. Oriented to person, place and time. patient administered narcotics - yes. Patient was admitted to the hospital or transferred to another facility. The following High Risk Discharge criteria are identified: None. Admitted to Med/Surg. 22:54 Patient left the ED. cf2 Signatures: Dispatcher [employer] EDMS Ifrah Crocker MD MD sd1 Gerry Proctor RN RN [facility] [place] Rafia Luna RN RN srm Peters, Mary, RN RN mcp Merriman, Kimberly 6 Yanna Almazan RN RN ck1 Hallie Dee Desiree, RN RN dsNidla Ramos, CANVAS GOODS FABRICATOR [employer] GOODS FABRICATOR rs6 Haylie Bacon RN Mare Silveira memRN AARON cf2 Kiana Chatman Laura lr2 Corrections: (The following items were deleted from the chart) 12:20 12:19 LIVER PROFILE+LAB sent. 1 EDOH MTDD
--- NOTE | 2016-12-22 22:55 | EDDOCDS ---
Physician Documentation [facility] Name: Arti Young Age: 71 yrs Sex: Female : 1945 Arrival Date: 12/22/2016 Time: 11:08 Bed 1 Private MD: Disposition: 12/22/16 18:42 Hospitalization ordered by Megan Arzola for Inpatient Admission. Preliminary diagnosis is Altered mental status, unspecified. - Bed requested for 4 [place]. - Status is Inpatient Admission. cf2 - Condition is Stable. - Problem is new. - Symptoms are unchanged. Historical: - Allergies: DOXACILLIN; - Home Meds: 1. donepezil 5 mg oral TbDL 1 tab once daily (Last dose: 12/21/2016) 2. cetirizine 10 mg oral tab 1 tab once daily (Last dose: 12/21/2016) 3. oxybutynin chloride 5 mg Oral tab 1 tab 2 times per day (Last dose: 12/21/2016) 4. anoro daily 5. gabapentin 600 mg Oral tab 1 tab 3 times per day 6. tramadol 50 mg Oral tab three times a day 7. Lantus 100 unit/mL Sub-Q soln Unknown daily 8. Vitamin D Oral Unknown daily OTC med 9. aspirin 81 mg Oral chew 1 tab nightly 10. omeprazole 40 mg Oral cpDR 1 cap once daily 11. Crestor 20 mg Oral tab 1 tab once daily 12. lisinopril 5 mg Oral tab 1 tab once daily - PMHx: Diabetes - IDDM: controlled; GERD; Hypercholesterolemia; neuropathy; - PSHx: left leg cancer skin; Tubal ligation; D & C; Cataract Surgery- Bilateral; - Social history: Smoking status: Patient uses tobacco products, current every day smoker. No barriers to communication noted. - Family history: Not pertinent. - : The pt / caregiver states he / she is not on anticoagulants. Home medication list is obtained from the patient. - Exposure Risk Screening:: None identified. Vital Signs: 12/22 11:01 BP 105 / 59 (auto/); ck1 11:02 Pulse 104 MON; Pulse Ox 97% ; ck1 11:10 BP 174 / 67; Pulse 90; Resp 20; Temp 97.2(O); Pulse Ox 94% on R/A; Weight 48.99 kg / lr2 108 lbs (R); Height 5 ft. 1 in. (154.94 cm); 12:00 BP 143 / 67 (auto/); ck1 12:02 Pulse 76 MON; Pulse Ox 100% ; ck1 12:15 BP 144 / 63 (auto/); ck1 12:15 Pulse 74 MON; Pulse Ox 98% ; ck1 12:30 BP 147 / 65 (auto/); ck1 12:30 Pulse 76 MON; Pulse Ox 100% ; ck1 12:45 BP 151 / 72 (auto/); ck1 12:45 Pulse 84 MON; Pulse Ox 100% ; ck1 13:00 BP 140 / 63 (auto/); ck1 13:00 Pulse 72 MON; Pulse Ox 100% ; ck1 13:15 BP 146 / 67 (auto/); ck1 13:15 Pulse 83 MON; Pulse Ox 100% ; ck1 13:30 BP 161 / 71 (auto/); ck1 13:30 Pulse 78 MON; Pulse Ox 100% ; ck1 13:44 Pulse 78 MON; Pulse Ox 96% ; ck1 13:45 BP 151 / 67 (auto/); ck1 14:00 BP 170 / 66 (auto/); ck1 14:00 Pulse 74 MON; ck1 14:15 BP 157 / 60 (auto/); ck1 14:15 Pulse 73 MON; Pulse Ox 100% ; ck1 14:36 BP 169 / 65 (auto/); ck1 14:36 Pulse 80 MON; Pulse Ox 98% ; ck1 14:51 BP 143 / 66 (auto/); ck1 14:51 Pulse 74 MON; Pulse Ox 100% ; ck1 15:06 BP 164 / 72 (auto/); ck1 15:06 Pulse 84 MON; Pulse Ox 100% ; ck1 15:21 BP 165 / 70 (auto/); ck1 15:21 Pulse 80 MON; Pulse Ox 100% ; ck1 15:36 Resp 18; Temp 97.6(O); ck1 15:36 BP 153 / 67 (auto/); ck1 15:36 Pulse 73 MON; Pulse Ox 100% ; ck1 15:39 Pulse 72 MON; Pulse Ox 100% ; ck1 15:51 BP 152 / 67 (auto/); ck1 15:51 Pulse 77 MON; ck1 16:05 Pulse 71 MON; Pulse Ox 100% ; ck1 16:06 BP 144 / 64 (auto/); ck1 16:21 BP 164 / 82 (auto/); ck1 16:21 Pulse 86 MON; Pulse Ox 100% ; ck1 16:36 BP 150 / 62 (auto/); ck1 16:38 Pulse 77 MON; Pulse Ox 100% ; ck1 16:51 BP 150 / 67 (auto/); ck1 16:51 Pulse 76 MON; Pulse Ox 100% ; ck1 17:06 BP 148 / 67 (auto/); ck1 17:06 Pulse 72 MON; Pulse Ox 100% ; ck1 17:21 BP 153 / 68 (auto/); ck1 17:21 Pulse 79 MON; Pulse Ox 100% ; ck1 17:30 Pulse 77 MON; Pulse Ox 100% ; ck1 17:35 Pulse 78 MON; ck1 17:36 BP 152 / 63 (auto/); ck1 18:01 BP 167 / 73 (auto/); ck1 18:01 Pulse 75 MON; Pulse Ox 100% ; ck1 11:10 Body Mass Index 20.41 (48.99 kg, 154.94 cm) lr2 MDM: 11:38 -Blood Culture (Adults Only), peripheral from different site, or from device/port/PICC sd1 etc. if present ordered. 11:38 Door Patcher/Pulse Ox/q 15 min VS ordered. sd1 11:38 IV Saline Lock ordered. sd1 11:38 Oxygen at 4L/Min NC or Home dosage ordered. sd1 11:38 Rhythm Strip to chart ordered. sd1 11:38 NS 0.9% 1000 ml IV at 250 mL/hr continuous ordered. sd1 11:39 Chest, 1 View Ordered. EDMS 11:39 -Blood Culture Ordered. EDMS 11:39 B-Type Natiuretic Peptide Ordered. EDMS 11:39 Basic Metabolic Profile Ordered. EDMS 11:39 CBC with Diff Ordered. EDMS 11:39 Cardiac Injury Profile Ordered. EDMS 11:39 Troponin Ordered. EDMS 11:40 ECG WITH READING ER PHYS+CARDIAG ordered. EDMS 11:40 CT Head Without Contrast Ordered. EDMS 11:50 BLOOD CULTURES Ordered. EDMS 11:51 -Blood Culture (Adults Only), peripheral from different site, or from device/port/PICC jrd etc. if present complete. 12:16 CBC with Diff Reviewed. sd1 12:20 LIVER PROFILE Ordered. EDMS 13:40 B-Type Natiuretic Peptide Reviewed. sd1 13:40 Basic Metabolic Profile Reviewed. sd1 13:40 Troponin Reviewed. sd1 13:40 LIVER PROFILE Reviewed. sd1 13:40 Cardiac Injury Profile Reviewed. sd1 13:40 Chest, 1 View Reviewed. sd1 13:40 CT Head Without Contrast Reviewed. sd1 13:46 Redraw CIP &Troponin (put time in details section) ordered. sd1 13:57 Redraw CIP &Troponin (put time in details section) complete. jrd 13:58 TROPONIN Ordered. EDMS 13:58 CARDIAC INJURY PROFILE Ordered. EDMS 14:20 Pelvis Ordered. EDMS 14:21 REGULAR+DIET ordered. EDMS 15:26 Financial registration complete. zo 16:08 [facility] Payment Agreement was scanned into [employer] and attached to record. zo 16:40 TROPONIN Reviewed. sd1 16:40 CARDIAC INJURY PROFILE Reviewed. sd1 16:40 Pelvis Reviewed. sd1 17:08 MRI Screening Tool - Place on chart, inform RN ordered. sd1 17:09 -MRA-Brain without contrast Ordered. EDMS 17:09 -MRI-Brain without Ordered. EDMS 17:10 Urine Toxicology Ordered. EDMS 17:10 Call Respiratory ordered. sd1 17:11 Ammonia (Little Green Tube on Ice, Not Pea Green) Ordered. EDMS 17:11 -Arterial Blood Gas Ordered. EDMS 17:28 Call Respiratory complete. nb2 18:01 MRI Screening Tool - Place on chart, inform RN complete. ck1 18:55 Misc Data Processing Specialist Order ordered. sd1 18:56 -Arterial Blood Gas Reviewed. sd1 18:56 Ammonia ([place] Green Tube on Ice, Not Pea Green) Reviewed. sd1 19:20 Misc Data Processing Specialist Order complete. jrd 19:20 RESPIRATORY PANEL Ordered. EDMS 19:32 Urine Culture Ordered. EDMS 19:32 UA Ordered. EDMS 19:33 Admission / Observation Status ordered. EDMS 19:33 NO ADDED SALT DIET ordered. EDMS 19:34 URINALYSIS Ordered. EDMS 19:35 BASIC METABOLIC PROFILE Ordered. EDMS 19:35 CBC WITH DIFFERENTIAL Ordered. EDMS 19:35 URINE CULTURE Ordered. EDMS 19:36 PHYSICAL THERAPY EVAL & TREAT ordered. EDMS 20:57 CARDIAC MARKER PANEL Ordered. EDMS 20:57 CARDIAC MARKER PANEL Ordered. EDMS 20:58 CARDIAC MARKER PANEL Ordered. EDMS 21:22 traMADol 50 mg PO once ordered. cf2 Administered Medications: 12:09 Drug: NS 0.9% 1000 ml [sodium chloride 0.9 % intravenous solution] Route: IV; Rate: 250 ck1 mL/hr; Site: right antecubital; 16:32 Follow up: IV Status: Completed infusion ck1 21:22 Drug: traMADol 50 mg [tramadol 50 mg tablet (1 tabs)] Route: PO; cf2 22:05 Follow up: Response: No significant change. cf2 Signatures: Dispatcher [employer] EDMS fIrah Crocker MD MD sd1 Rafia Luna RN RN [facility] Chun , AARON Barrett RN, Connie, RN RN ck1 Hallie Dee Joseph, COLLEGE HIRE COLLEGE HIRE d Mare Theodore RN RN cf2 Kiana Chatman 2 The chart was reviewed and I authenticate all verbal orders and agree with the evaluation and treatment provided.Corrections: (The following items were deleted from the chart) 12:20 12:18 LIVER PROFILE+LAB ordered. EDMS EDMS Attachments: 16:08 [facility] Payment Agreement zo MTDD
[2016-12-22] MEDS: GABAPENTIN 300 MG CAP PO SCH (23:40)
[2016-12-22] MEDS: AUGMENTIN 875 MG TAB PO SCH (23:40)
[2016-12-22] MEDS: ROSUVASTATIN 10 MG TAB (CRESTOR) PO SCH (23:40)
[2016-12-22] MEDS: oxyBUTYnin 5 MG TAB PO SCH (23:40)
[2016-12-22] MEDS: LISINOPRIL 5 MG TAB PO SCH (23:42)
[2016-12-22] MEDS: HumaLOG INSULIN (NovoLOG) PER UNIT SC SCH (23:54)
[2016-12-23 06:00] VITALS: BP 109/55
[2016-12-23 06:05] LABS: BASO % 0.3 % (0.0-1.0); EOS # 0.1 K/mm3 (0.0-0.50); EOS % 1.3 % (0.0-3.0); LARGE UNSTAINED CELL # 0.2 K/mm3 (0.0-0.4); LYMPH # 1.9 K/mm3 (1.5-4.5); LYMPH % 17.3 % (24.0-44.0); MEAN CORPUSCULAR HEMOGLOBIN 30.6 pg (27.0-33.0); MEAN CORPUSCULAR HGB CONC 34.2 g/dl (32.0-36.5); MEAN CORPUSCULAR VOLUME 89.6 fl (80.0-96.0); MONO % 9.5 % (0.0-5.0); NEUTROPHILS % 69.5 % (36.0-66.0); PLATELET COUNT, AUTOMATED 556 k/mm3 (150-450); RED CELL DISTRIBUTION WIDTH 12.3 % (11.5-14.5); WHITE BLOOD COUNT 10.1 K/mm3 (4.0-10.0)
[2016-12-23 06:39] LABS: ANION GAP 6 MEQ/L (8-16); BLOOD UREA NITROGEN 12 MG/DL (7-18); CALCIUM LEVEL 8.5 MG/DL (8.8-10.2); CARBON DIOXIDE LEVEL 27 MEQ/L (21-32); CHLORIDE LEVEL 108 MEQ/L (98-107); CREATININE FOR GFR 0.53 MG/DL (0.55-1.02); GLOMERULAR FILTRATION RATE > 60.0 (>39); GLUCOSE, FASTING 133 MG/DL (83-110); POTASSIUM SERUM 4.4 MEQ/L (3.5-5.1); SODIUM LEVEL 141 MEQ/L (136-145)
--- NOTE | 2016-12-23 08:32 | ECGEPIP ---
Stationary ECG Study [facility] - ED Test Date: 2016-12-22 Pat Name: OBI TAPIA Department: Room: - Gender: F Instructor Dramatic Arts: anna : 1945 Requested By: Ifrah Crocker Order Number: [id number] Reading MD: Ifrah Crocker Measurements Intervals [place] Rate: 77 P: 74 LA: 194 QRS: 67 QRSD: 114 T: 77 QT: 420 QTc: 478 Interpretive Statements SINUS RHYTHM MODERATE INTRAVENTRICULAR CONDUCTION DELAY VOLTAGE CRITERIA FOR LVH INCREASED RATE 04/12/14 Electronically Signed On 12-23-2016 8:32:39 EST by Ifrah Crocker
[2016-12-23] MEDS: HumaLOG INSULIN (NovoLOG) PER UNIT SC SCH ×4 (09:27→21:34)
[2016-12-23] MEDS: AUGMENTIN 875 MG TAB PO SCH ×2 (09:27→21:33)
[2016-12-23] MEDS: DONEPEZIL 5 MG TAB PO SCH (09:28)
[2016-12-23] MEDS: OMEPRAZOLE 20 MG CAP PO SCH (09:28)
[2016-12-23] MEDS: GABAPENTIN 300 MG CAP PO SCH ×3 (09:28→21:33)
[2016-12-23] MEDS: oxyBUTYnin 5 MG TAB PO SCH ×2 (09:28→21:33)
[2016-12-23] MEDS: ASPIRIN 81 MG ENTERIC TAB PO SCH (09:28)
[2016-12-23] MEDS: CETIRIZINE (ZyrTEC) 10 MG TAB PO SCH (09:28)
[2016-12-23] MEDS: ENOXAPARIN 30 MG/0.3 ML SYR (J1650) SC SCH (09:29)
[2016-12-23] MEDS: LEVEMIR (INSULIN DETEMIR) 1 UNITS/0.01ML SC SCH (10:13)
--- NOTE | 2016-12-23 13:53 | ECGEPIP ---
Stationary ECG Study [facility] Test Date: 2016-12-23 Pat Name: OBI TAPIA Department: Room: [place] [address] Gender: F Emotional Disabilities Teacher: LEEANNE : 1945 Requested By: AAKASH Hart Order Number: [id number] Reading MD: Darrell Morrissey Measurements Intervals [place] Rate: 69 P: 63 LA: 212 QRS: 56 QRSD: 113 T: 60 QT: 467 QTc: 503 Interpretive Statements SINUS RHYTHM WITH FIRST DEGREE AV BLOCK MODERATE INTRAVENTRICULAR CONDUCTION DELAY MODERATE VOLTAGE CRITERIA FOR LVH Poor R-wave progression, possible anteroseptal myocardial infarct (age undetermined) PROLONGED QT INTERVAL No significant change compared with 12/22/2016. Electronically Signed On 12-23-2016 13:53:13 EST by Darrell Morrissey
[2016-12-23 14:00] VITALS: BP 114/58
--- NOTE | 2016-12-23 16:09 | IPN ---
DATE: 12/23/2016 SUBJECTIVE: Today, the patient tells me that she is feeling well. She denies any confusion or impairment. She is awake, alert, and oriented times three. She tells me that she has had a little bit of a cough but otherwise feels well. OBJECTIVE: VITAL SIGNS: Temperature 96.7, pulse 66, respiratory rate 17, blood pressure 109/55, oxygen saturation 95% on room air. GENERAL: She is a frail, elderly, female sitting up in bed. She appears in no distress. NEUROLOGIC: Cranial nerves II-XII are grossly intact. HEENT: She has moist mucous membranes. No elevation of central venous pressure (CVP). There is no sinus tenderness. No cervical lymphadenopathy. CARDIOVASCULAR: S1, S2, regular. RESPIRATORY: Fairly clear. ABDOMEN: Benign. EXTREMITIES: No clubbing, cyanosis, or edema. LABORATORY STUDIES: WBC 10.1, hemoglobin 12.0, hematocrit 35, platelet count is 556. Chemistry panel: Sodium 141, potassium 4.4, chloride 108, bicarbonate 27, BUN 12, creatinine 0.5. The patient's troponin remains equivocal at 0.9 at the time of arrival and now fluctuating between 0.12 and 0.11. Urine toxicology was negative. A urinalysis was mildly suggestive of a urinary tract infection but a urine culture is pending. A respiratory panel is negative. Blood cultures are negative for 24 hours. IMAGING: The patient had a CT scan of the head which revealed small vessel ischemic disease with minimal volume loss. She had a chest x-ray which revealed no obvious acute cardiopulmonary process. She had a pelvic x-ray that revealed age-related osteopenia and no acute fracture or dislocation. MRI of the brain revealed bilateral maxillary sinusitis. The patient also had an MRA of the brain that revealed no gross abnormality. ASSESSMENT AND PLAN: This is a 71-year-old female with metabolic encephalopathy. 1. Metabolic encephalopathy, likely secondary to acute medical illness. I did have a chance to meet with the patient's daughter and the patient at bedside. The patient's daughter tells me that today she is doing significantly better than she has over the last previous days. Reportedly, the entire family had had a diarrheal illness which has now resolved for all of them. However, the patient had become confused with it and was not improving and that was the reason why the daughter did bring her to the emergency room. At this time, she does appear to be improving. The patient has been started on Augmentin for possible sinusitis as well. I suspect that the patient has some underlying dementia and has reportedly been worked up by GUCCI Alvarez. She is on donepezil and has had MRIs of the brain in the past as well. I did suggest that when she has returned to her baseline cognitive functioning they could consider mental status testing and neurology referral regarding a possible dementia diagnosis. For the time being, we will continue her current care. The patient will work with physical therapy. If she is able to improve, she may be able to be discharged within the next 24-48 hours. 2. Type 2 diabetes. She is on sliding scale insulin. 3. Hypertension. She is on lisinopril. Her blood pressures are controlled. 4. Dyslipidemia. She is on Crestor. 5. Gastroesophageal reflux disease. She is on omeprazole. 6. Diabetic neuropathy. She is on gabapentin. 7. Deep vein thrombosis (DVT) prophylaxis. She is on Lovenox. 8. Seasonal allergies. The patient is on Zyrtec. 9. Bladder spasms. The patient is on oxybutynin. DISPOSITION: The patient could likely be discharged within the next 24-48 hours if cleared by physical therapy.
[2016-12-23] MEDS: ROSUVASTATIN 10 MG TAB (CRESTOR) PO SCH (21:33)
[2016-12-23 21:35] VITALS: BP 145/65
[2016-12-23] MEDS: LISINOPRIL 5 MG TAB PO SCH (21:35)
[2016-12-23 22:00] VITALS: BP 145/65
[2016-12-24 06:00] VITALS: BP 127/61
[2016-12-24 06:21] LABS: BASO % 0.4 % (0.0-1.0); EOS # 0.2 K/mm3 (0.0-0.50); EOS % 2.3 % (0.0-3.0); LARGE UNSTAINED CELL # 0.2 K/mm3 (0.0-0.4); LARGE UNSTAINED CELL % 2.2 % (0.0-4.0); LYMPH # 2.3 K/mm3 (1.5-4.5); LYMPH % 23.1 % (24.0-44.0); MEAN CORPUSCULAR HEMOGLOBIN 30.2 pg (27.0-33.0); MEAN CORPUSCULAR VOLUME 91.6 fl (80.0-96.0); MONO # 0.8 K/mm3 (0.0-0.8); MONO % 8.2 % (0.0-5.0); NEUTROPHILS # 5.8 K/mm3 (1.8-7.7); NEUTROPHILS % 63.8 % (36.0-66.0); PLATELET COUNT, AUTOMATED 615 k/mm3 (150-450); RED CELL DISTRIBUTION WIDTH 12.5 % (11.5-14.5); WHITE BLOOD COUNT 9.1 K/mm3 (4.0-10.0)
[2016-12-24 06:31] LABS: ANION GAP 9 MEQ/L (8-16); BLOOD UREA NITROGEN 9 MG/DL (7-18); CALCIUM LEVEL 8.9 MG/DL (8.8-10.2); CARBON DIOXIDE LEVEL 26 MEQ/L (21-32); CHLORIDE LEVEL 106 MEQ/L (98-107); CREATININE FOR GFR 0.68 MG/DL (0.55-1.02); GLOMERULAR FILTRATION RATE > 60.0 (>39); GLUCOSE, FASTING 169 MG/DL (83-110); POTASSIUM SERUM 4.3 MEQ/L (3.5-5.1); SODIUM LEVEL 141 MEQ/L (136-145)
[2016-12-24] MEDS: HumaLOG INSULIN (NovoLOG) PER UNIT SC SCH (08:09)
[2016-12-24] MEDS: LEVEMIR (INSULIN DETEMIR) 1 UNITS/0.01ML SC SCH (08:10)
[2016-12-24] MEDS: ASPIRIN 81 MG ENTERIC TAB PO SCH (08:10)
[2016-12-24] MEDS: OMEPRAZOLE 20 MG CAP PO SCH (08:10)
[2016-12-24] MEDS: AUGMENTIN 875 MG TAB PO SCH (08:10)
[2016-12-24] MEDS: ENOXAPARIN 30 MG/0.3 ML SYR (J1650) SC SCH (08:10)
[2016-12-24] MEDS: oxyBUTYnin 5 MG TAB PO SCH (08:11)
[2016-12-24] MEDS: DONEPEZIL 5 MG TAB PO SCH (08:11)
[2016-12-24] MEDS: GABAPENTIN 300 MG CAP PO SCH (08:11)
[2016-12-24] MEDS: CETIRIZINE (ZyrTEC) 10 MG TAB PO SCH (08:11)
[2016-12-24] MEDS ORDERED: AMOX875T2 PO (08:44)
--- NOTE | 2016-12-24 23:55 | EDDOCDS ---
Physician Documentation [facility] Name: Arti Young Age: 71 yrs Sex: Female : 1945 Arrival Date: 12/22/2016 Time: 11:08 Bed 1 Private MD: Disposition: 12/22/16 18:42 Hospitalization ordered by Megan Arzola for Inpatient Admission. Preliminary diagnosis is Altered mental status, unspecified. - Bed requested for 4 [place]. - Status is Inpatient Admission. cf2 - Condition is Stable. - Problem is new. - Symptoms are unchanged. Historical: - Allergies: DOXACILLIN; - Home Meds: 1. donepezil 5 mg oral TbDL 1 tab once daily (Last dose: 12/21/2016) 2. cetirizine 10 mg oral tab 1 tab once daily (Last dose: 12/21/2016) 3. oxybutynin chloride 5 mg Oral tab 1 tab 2 times per day (Last dose: 12/21/2016) 4. anoro daily 5. gabapentin 600 mg Oral tab 1 tab 3 times per day 6. tramadol 50 mg Oral tab three times a day 7. Lantus 100 unit/mL Sub-Q soln Unknown daily 8. Vitamin D Oral Unknown daily OTC med 9. aspirin 81 mg Oral chew 1 tab nightly 10. omeprazole 40 mg Oral cpDR 1 cap once daily 11. Crestor 20 mg Oral tab 1 tab once daily 12. lisinopril 5 mg Oral tab 1 tab once daily - PMHx: Diabetes - IDDM: controlled; GERD; Hypercholesterolemia; neuropathy; - PSHx: left leg cancer skin; Tubal ligation; D & C; Cataract Surgery- Bilateral; - Social history: Smoking status: Patient uses tobacco products, current every day smoker. No barriers to communication noted. - Family history: Not pertinent. - : The pt / caregiver states he / she is not on anticoagulants. Home medication list is obtained from the patient. - Exposure Risk Screening:: None identified. Vital Signs: 12/22 11:01 BP 105 / 59 (auto/); ck1 11:02 Pulse 104 MON; Pulse Ox 97% ; ck1 11:10 BP 174 / 67; Pulse 90; Resp 20; Temp 97.2(O); Pulse Ox 94% on R/A; Weight 48.99 kg / lr2 108 lbs (R); Height 5 ft. 1 in. (154.94 cm); 12:00 BP 143 / 67 (auto/); ck1 12:02 Pulse 76 MON; Pulse Ox 100% ; ck1 12:15 BP 144 / 63 (auto/); ck1 12:15 Pulse 74 MON; Pulse Ox 98% ; ck1 12:30 BP 147 / 65 (auto/); ck1 12:30 Pulse 76 MON; Pulse Ox 100% ; ck1 12:45 BP 151 / 72 (auto/); ck1 12:45 Pulse 84 MON; Pulse Ox 100% ; ck1 13:00 BP 140 / 63 (auto/); ck1 13:00 Pulse 72 MON; Pulse Ox 100% ; ck1 13:15 BP 146 / 67 (auto/); ck1 13:15 Pulse 83 MON; Pulse Ox 100% ; ck1 13:30 BP 161 / 71 (auto/); ck1 13:30 Pulse 78 MON; Pulse Ox 100% ; ck1 13:44 Pulse 78 MON; Pulse Ox 96% ; ck1 13:45 BP 151 / 67 (auto/); ck1 14:00 BP 170 / 66 (auto/); ck1 14:00 Pulse 74 MON; ck1 14:15 BP 157 / 60 (auto/); ck1 14:15 Pulse 73 MON; Pulse Ox 100% ; ck1 14:36 BP 169 / 65 (auto/); ck1 14:36 Pulse 80 MON; Pulse Ox 98% ; ck1 14:51 BP 143 / 66 (auto/); ck1 14:51 Pulse 74 MON; Pulse Ox 100% ; ck1 15:06 BP 164 / 72 (auto/); ck1 15:06 Pulse 84 MON; Pulse Ox 100% ; ck1 15:21 BP 165 / 70 (auto/); ck1 15:21 Pulse 80 MON; Pulse Ox 100% ; ck1 15:36 Resp 18; Temp 97.6(O); ck1 15:36 BP 153 / 67 (auto/); ck1 15:36 Pulse 73 MON; Pulse Ox 100% ; ck1 15:39 Pulse 72 MON; Pulse Ox 100% ; ck1 15:51 BP 152 / 67 (auto/); ck1 15:51 Pulse 77 MON; ck1 16:05 Pulse 71 MON; Pulse Ox 100% ; ck1 16:06 BP 144 / 64 (auto/); ck1 16:21 BP 164 / 82 (auto/); ck1 16:21 Pulse 86 MON; Pulse Ox 100% ; ck1 16:36 BP 150 / 62 (auto/); ck1 16:38 Pulse 77 MON; Pulse Ox 100% ; ck1 16:51 BP 150 / 67 (auto/); ck1 16:51 Pulse 76 MON; Pulse Ox 100% ; ck1 17:06 BP 148 / 67 (auto/); ck1 17:06 Pulse 72 MON; Pulse Ox 100% ; ck1 17:21 BP 153 / 68 (auto/); ck1 17:21 Pulse 79 MON; Pulse Ox 100% ; ck1 17:30 Pulse 77 MON; Pulse Ox 100% ; ck1 17:35 Pulse 78 MON; ck1 17:36 BP 152 / 63 (auto/); ck1 18:01 BP 167 / 73 (auto/); ck1 18:01 Pulse 75 MON; Pulse Ox 100% ; ck1 11:10 Body Mass Index 20.41 (48.99 kg, 154.94 cm) lr2 MDM: 11:38 -Blood Culture (Adults Only), peripheral from different site, or from device/port/PICC sd1 etc. if present ordered. 11:38 Financial Intern/Pulse Ox/q 15 min VS ordered. sd1 11:38 IV Saline Lock ordered. sd1 11:38 Oxygen at 4L/Min NC or Home dosage ordered. sd1 11:38 Rhythm Strip to chart ordered. sd1 11:38 NS 0.9% 1000 ml IV at 250 mL/hr continuous ordered. sd1 11:39 Chest, 1 View Ordered. EDMS 11:39 -Blood Culture Ordered. EDMS 11:39 B-Type Natiuretic Peptide Ordered. EDMS 11:39 Basic Metabolic Profile Ordered. EDMS 11:39 CBC with Diff Ordered. EDMS 11:39 Cardiac Injury Profile Ordered. EDMS 11:39 Troponin Ordered. EDMS 11:40 ECG WITH READING ER PHYS+CARDIAG ordered. EDMS 11:40 CT Head Without Contrast Ordered. EDMS 11:50 BLOOD CULTURES Ordered. EDMS 11:51 -Blood Culture (Adults Only), peripheral from different site, or from device/port/PICC jrd etc. if present complete. 12:16 CBC with Diff Reviewed. sd1 12:20 LIVER PROFILE Ordered. EDMS 13:40 B-Type Natiuretic Peptide Reviewed. sd1 13:40 Basic Metabolic Profile Reviewed. sd1 13:40 Troponin Reviewed. sd1 13:40 LIVER PROFILE Reviewed. sd1 13:40 Cardiac Injury Profile Reviewed. sd1 13:40 Chest, 1 View Reviewed. sd1 13:40 CT Head Without Contrast Reviewed. sd1 13:46 Redraw CIP &Troponin (put time in details section) ordered. sd1 13:57 Redraw CIP &Troponin (put time in details section) complete. jrd 13:58 TROPONIN Ordered. EDMS 13:58 CARDIAC INJURY PROFILE Ordered. EDMS 14:20 Pelvis Ordered. EDMS 14:21 REGULAR+DIET ordered. EDMS 15:26 Financial registration complete. zo 16:08 [facility] Payment Agreement was scanned into [employer] and attached to record. zo 16:40 TROPONIN Reviewed. sd1 16:40 CARDIAC INJURY PROFILE Reviewed. sd1 16:40 Pelvis Reviewed. sd1 17:08 MRI Screening Tool - Place on chart, inform RN ordered. sd1 17:09 -MRA-Brain without contrast Ordered. EDMS 17:09 -MRI-Brain without Ordered. EDMS 17:10 Urine Toxicology Ordered. EDMS 17:10 Call Respiratory ordered. sd1 17:11 Ammonia ([place] Tube on Ice, Not Pea Green) Ordered. EDMS 17:11 -Arterial Blood Gas Ordered. EDMS 17:28 Call Respiratory complete. nb2 18:01 MRI Screening Tool - Place on chart, inform RN complete. ck1 18:55 Misc Snaker Order ordered. sd1 18:56 -Arterial Blood Gas Reviewed. sd1 18:56 Ammonia ([place] Tube on Ice, Not Pea Green) Reviewed. sd1 19:20 Misc Snaker Order complete. jrd 19:20 RESPIRATORY PANEL Ordered. EDMS 19:32 Urine Culture Ordered. EDMS 19:32 UA Ordered. EDMS 19:33 Admission / Observation Status ordered. EDMS 19:33 NO ADDED SALT DIET ordered. EDMS 19:34 URINALYSIS Ordered. EDMS 19:35 BASIC METABOLIC PROFILE Ordered. EDMS 19:35 CBC WITH DIFFERENTIAL Ordered. EDMS 19:35 URINE CULTURE Ordered. EDMS 19:36 PHYSICAL THERAPY EVAL & TREAT ordered. EDMS 20:57 CARDIAC MARKER PANEL Ordered. EDMS 20:57 CARDIAC MARKER PANEL Ordered. EDMS 20:58 CARDIAC MARKER PANEL Ordered. EDMS 21:22 traMADol 50 mg PO once ordered. cf2 12/23 13:54 T-Sheet-- Draft Copy was scanned into [employer] and attached to record. gb Administered Medications: 12/22 12:09 Drug: NS 0.9% 1000 ml [sodium chloride 0.9 % intravenous solution] Route: IV; Rate: 250 ck1 mL/hr; Site: right antecubital; 16:32 Follow up: IV Status: Completed infusion ck1 21:22 Drug: traMADol 50 mg [tramadol 50 mg tablet (1 tabs)] Route: PO; cf2 22:05 Follow up: Response: No significant change. cf2 Signatures: Dispatcher [employer] EDMS Ifrah Crocker MD MD sd1 Rafia Luna, RN RN [facility] [place] [facility], AARON Barrett RN daYolanda Gandhi, Reg Reg Yanna MckayRN RN ck1 Hallie Dee Joseph, LICENSED OPTICAL DISPENSER LICENSED OPTICAL DISPENSER d Mare Theodore RN RN cf2 Kiana Chatman2 The chart was reviewed and I authenticate all verbal orders and agree with the evaluation and treatment provided.Corrections: (The following items were deleted from the chart) 12:20 12:18 LIVER PROFILE+LAB ordered. EDCO EDMS Attachments: 16:08 [facility] Payment Agreement zo 12/23 13:54 T-Sheet-- Draft Copy gb Chart Complete MTDD
--- NOTE | 2016-12-24 23:55 | EDDOCDS ---
Physician Documentation [facility] Name: Arti Young Age: 71 yrs Sex: Female : 1945 Arrival Date: 12/22/2016 Time: 11:08 Bed 1 Private MD: Disposition: 12/22/16 18:42 Hospitalization ordered by Megan Arzola for Inpatient Admission. Preliminary diagnosis is Altered mental status, unspecified. - Bed requested for 4 [place]. - Status is Inpatient Admission. cf2 - Condition is Stable. - Problem is new. - Symptoms are unchanged. Historical: - Allergies: DOXACILLIN; - Home Meds: 1. donepezil 5 mg oral TbDL 1 tab once daily (Last dose: 12/21/2016) 2. cetirizine 10 mg oral tab 1 tab once daily (Last dose: 12/21/2016) 3. oxybutynin chloride 5 mg Oral tab 1 tab 2 times per day (Last dose: 12/21/2016) 4. anoro daily 5. gabapentin 600 mg Oral tab 1 tab 3 times per day 6. tramadol 50 mg Oral tab three times a day 7. Lantus 100 unit/mL Sub-Q soln Unknown daily 8. Vitamin D Oral Unknown daily OTC med 9. aspirin 81 mg Oral chew 1 tab nightly 10. omeprazole 40 mg Oral cpDR 1 cap once daily 11. Crestor 20 mg Oral tab 1 tab once daily 12. lisinopril 5 mg Oral tab 1 tab once daily - PMHx: Diabetes - IDDM: controlled; GERD; Hypercholesterolemia; neuropathy; - PSHx: left leg cancer skin; Tubal ligation; D & C; Cataract Surgery- Bilateral; - Social history: Smoking status: Patient uses tobacco products, current every day smoker. No barriers to communication noted. - Family history: Not pertinent. - : The pt / caregiver states he / she is not on anticoagulants. Home medication list is obtained from the patient. - Exposure Risk Screening:: None identified. Vital Signs: 12/22 11:01 BP 105 / 59 (auto/); ck1 11:02 Pulse 104 MON; Pulse Ox 97% ; ck1 11:10 BP 174 / 67; Pulse 90; Resp 20; Temp 97.2(O); Pulse Ox 94% on R/A; Weight 48.99 kg / lr2 108 lbs (R); Height 5 ft. 1 in. (154.94 cm); 12:00 BP 143 / 67 (auto/); ck1 12:02 Pulse 76 MON; Pulse Ox 100% ; ck1 12:15 BP 144 / 63 (auto/); ck1 12:15 Pulse 74 MON; Pulse Ox 98% ; ck1 12:30 BP 147 / 65 (auto/); ck1 12:30 Pulse 76 MON; Pulse Ox 100% ; ck1 12:45 BP 151 / 72 (auto/); ck1 12:45 Pulse 84 MON; Pulse Ox 100% ; ck1 13:00 BP 140 / 63 (auto/); ck1 13:00 Pulse 72 MON; Pulse Ox 100% ; ck1 13:15 BP 146 / 67 (auto/); ck1 13:15 Pulse 83 MON; Pulse Ox 100% ; ck1 13:30 BP 161 / 71 (auto/); ck1 13:30 Pulse 78 MON; Pulse Ox 100% ; ck1 13:44 Pulse 78 MON; Pulse Ox 96% ; ck1 13:45 BP 151 / 67 (auto/); ck1 14:00 BP 170 / 66 (auto/); ck1 14:00 Pulse 74 MON; ck1 14:15 BP 157 / 60 (auto/); ck1 14:15 Pulse 73 MON; Pulse Ox 100% ; ck1 14:36 BP 169 / 65 (auto/); ck1 14:36 Pulse 80 MON; Pulse Ox 98% ; ck1 14:51 BP 143 / 66 (auto/); ck1 14:51 Pulse 74 MON; Pulse Ox 100% ; ck1 15:06 BP 164 / 72 (auto/); ck1 15:06 Pulse 84 MON; Pulse Ox 100% ; ck1 15:21 BP 165 / 70 (auto/); ck1 15:21 Pulse 80 MON; Pulse Ox 100% ; ck1 15:36 Resp 18; Temp 97.6(O); ck1 15:36 BP 153 / 67 (auto/); ck1 15:36 Pulse 73 MON; Pulse Ox 100% ; ck1 15:39 Pulse 72 MON; Pulse Ox 100% ; ck1 15:51 BP 152 / 67 (auto/); ck1 15:51 Pulse 77 MON; ck1 16:05 Pulse 71 MON; Pulse Ox 100% ; ck1 16:06 BP 144 / 64 (auto/); ck1 16:21 BP 164 / 82 (auto/); ck1 16:21 Pulse 86 MON; Pulse Ox 100% ; ck1 16:36 BP 150 / 62 (auto/); ck1 16:38 Pulse 77 MON; Pulse Ox 100% ; ck1 16:51 BP 150 / 67 (auto/); ck1 16:51 Pulse 76 MON; Pulse Ox 100% ; ck1 17:06 BP 148 / 67 (auto/); ck1 17:06 Pulse 72 MON; Pulse Ox 100% ; ck1 17:21 BP 153 / 68 (auto/); ck1 17:21 Pulse 79 MON; Pulse Ox 100% ; ck1 17:30 Pulse 77 MON; Pulse Ox 100% ; ck1 17:35 Pulse 78 MON; ck1 17:36 BP 152 / 63 (auto/); ck1 18:01 BP 167 / 73 (auto/); ck1 18:01 Pulse 75 MON; Pulse Ox 100% ; ck1 11:10 Body Mass Index 20.41 (48.99 kg, 154.94 cm) lr2 MDM: 11:38 -Blood Culture (Adults Only), peripheral from different site, or from device/port/PICC sd1 etc. if present ordered. 11:38 Wheat Buyer/Pulse Ox/q 15 min VS ordered. sd1 11:38 IV Saline Lock ordered. sd1 11:38 Oxygen at 4L/Min NC or Home dosage ordered. sd1 11:38 Rhythm Strip to chart ordered. sd1 11:38 NS 0.9% 1000 ml IV at 250 mL/hr continuous ordered. sd1 11:39 Chest, 1 View Ordered. EDMS 11:39 -Blood Culture Ordered. EDMS 11:39 B-Type Natiuretic Peptide Ordered. EDMS 11:39 Basic Metabolic Profile Ordered. EDMS 11:39 CBC with Diff Ordered. EDMS 11:39 Cardiac Injury Profile Ordered. EDMS 11:39 Troponin Ordered. EDMS 11:40 ECG WITH READING ER PHYS+CARDIAG ordered. EDMS 11:40 CT Head Without Contrast Ordered. EDMS 11:50 BLOOD CULTURES Ordered. EDMS 11:51 -Blood Culture (Adults Only), peripheral from different site, or from device/port/PICC jrd etc. if present complete. 12:16 CBC with Diff Reviewed. sd1 12:20 LIVER PROFILE Ordered. EDMS 13:40 B-Type Natiuretic Peptide Reviewed. sd1 13:40 Basic Metabolic Profile Reviewed. sd1 13:40 Troponin Reviewed. sd1 13:40 LIVER PROFILE Reviewed. sd1 13:40 Cardiac Injury Profile Reviewed. sd1 13:40 Chest, 1 View Reviewed. sd1 13:40 CT Head Without Contrast Reviewed. sd1 13:46 Redraw CIP &Troponin (put time in details section) ordered. sd1 13:57 Redraw CIP &Troponin (put time in details section) complete. jrd 13:58 TROPONIN Ordered. EDMS 13:58 CARDIAC INJURY PROFILE Ordered. EDMS 14:20 Pelvis Ordered. EDMS 14:21 REGULAR+DIET ordered. EDMS 15:26 Financial registration complete. zo 16:08 [facility] Payment Agreement was scanned into [employer] and attached to record. zo 16:40 TROPONIN Reviewed. sd1 16:40 CARDIAC INJURY PROFILE Reviewed. sd1 16:40 Pelvis Reviewed. sd1 17:08 MRI Screening Tool - Place on chart, inform RN ordered. sd1 17:09 -MRA-Brain without contrast Ordered. EDMS 17:09 -MRI-Brain without Ordered. EDMS 17:10 Urine Toxicology Ordered. EDMS 17:10 Call Respiratory ordered. sd1 17:11 Ammonia ([place] Tube on Ice, Not [place]) Ordered. EDMS 17:11 -Arterial Blood Gas Ordered. EDMS 17:28 Call Respiratory complete. nb2 18:01 MRI Screening Tool - Place on chart, inform RN complete. ck1 18:55 Misc Supervisor Gelatin Plant Order ordered. sd1 18:56 -Arterial Blood Gas Reviewed. sd1 18:56 Ammonia ([place] Tube on Ice, Not [place]) Reviewed. sd1 19:20 Misc Supervisor Gelatin Plant Order complete. jrd 19:20 RESPIRATORY PANEL Ordered. EDMS 19:32 Urine Culture Ordered. EDMS 19:32 UA Ordered. EDMS 19:33 Admission / Observation Status ordered. EDMS 19:33 NO ADDED SALT DIET ordered. EDMS 19:34 URINALYSIS Ordered. EDMS 19:35 BASIC METABOLIC PROFILE Ordered. EDMS 19:35 CBC WITH DIFFERENTIAL Ordered. EDMS 19:35 URINE CULTURE Ordered. EDMS 19:36 PHYSICAL THERAPY EVAL & TREAT ordered. EDMS 20:57 CARDIAC MARKER PANEL Ordered. EDMS 20:57 CARDIAC MARKER PANEL Ordered. EDMS 20:58 CARDIAC MARKER PANEL Ordered. EDMS 21:22 traMADol 50 mg PO once ordered. cf2 12/23 13:54 T-Sheet-- Draft Copy was scanned into [employer] and attached to record. gb Administered Medications: 12/22 12:09 Drug: NS 0.9% 1000 ml [sodium chloride 0.9 % intravenous solution] Route: IV; Rate: 250 ck1 mL/hr; Site: right antecubital; 16:32 Follow up: IV Status: Completed infusion ck1 21:22 Drug: traMADol 50 mg [tramadol 50 mg tablet (1 tabs)] Route: PO; cf2 22:05 Follow up: Response: No significant change. cf2 Signatures: Dispatcher [employer] EDMS Ifrah Crocker MD MD sd1 Rafia Luna, RN RN [facility], AARON Barrett RN daYolanda Gandhi, Reg Reg Yanna MckayRN RN ck1 Hallie Dee Joseph, CUSTOMER SUPPORT ASSISTANT CUSTOMER SUPPORT ASSISTANT d Mare Theodore RN RN cf2 Kiana Chatman2 The chart was reviewed and I authenticate all verbal orders and agree with the evaluation and treatment provided.Corrections: (The following items were deleted from the chart) 12:20 12:18 LIVER PROFILE+LAB ordered. EDAK EDMS Attachments: 16:08 [facility] Payment Agreement zo 12/23 13:54 T-Sheet-- Draft Copy gb Chart Complete MTDD
--- NOTE | 2016-12-24 23:56 | EDDOCDS ---
Nurse's Notes [facility] Name: Arti Young Age: 71 yrs Sex: Female : 1945 Arrival Date: 12/22/2016 Time: 11:08 Bed 1 Private MD: Diagnosis: Altered mental status, unspecified Presentation: 12/22 11:16 Presenting complaint: Patient states: im not quite coherent- started today. legs hurt. [facility] [place] Adult Sepsis Screening: Patient has new or worsening altered mentation (1 point). Patient's respiratory rate is less than 22. Systolic blood pressure is greater than 100. Patient has a qSOFA score of 0- Negative Sepsis Screen. Suicide/Homicide risk assessment- the patient denies having any suicidal and/or homicidal ideations and does not present with any other emotional, behavioral or mental health complaints. 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 Transition of care: patient was not received from another setting of care. 11:16 Method Of Arrival: Walkin/Carried/Asstd [facility] [place] 11:16 Acuity: ELADIO Level 3 [facility] [place] 11:22 Presenting complaint: Patient states: cough and cold symptoms for a few days. [facility] [place] Triage Assessment: 11:22 General: Appears in no apparent distress, Behavior is appropriate for age, cooperative. [facility] [place] Pain: Pain currently is 6 out of 10 on a pain scale. Neurological: Level of Consciousness is awake, alert, Oriented to person, place, Speech is normal, slow to answer questions. Facial symmetry appears normal. Historical: - Allergies: DOXACILLIN; - Home Meds: 1. donepezil 5 mg oral TbDL 1 tab once daily (Last dose: 12/21/2016) 2. cetirizine 10 mg oral tab 1 tab once daily (Last dose: 12/21/2016) 3. oxybutynin chloride 5 mg Oral tab 1 tab 2 times per day (Last dose: 12/21/2016) 4. anoro daily 5. gabapentin 600 mg Oral tab 1 tab 3 times per day 6. tramadol 50 mg Oral tab three times a day 7. Lantus 100 unit/mL Sub-Q soln Unknown daily 8. Vitamin D Oral Unknown daily OTC med 9. aspirin 81 mg Oral chew 1 tab nightly 10. omeprazole 40 mg Oral cpDR 1 cap once daily 11. Crestor 20 mg Oral tab 1 tab once daily 12. lisinopril 5 mg Oral tab 1 tab once daily - PMHx: Diabetes - IDDM: controlled; GERD; Hypercholesterolemia; neuropathy; - PSHx: left leg cancer skin; Tubal ligation; D & C; Cataract Surgery- Bilateral; - Social history: Smoking status: Patient uses tobacco products, current every day smoker. No barriers to communication noted. - Family history: Not pertinent. - : The pt / caregiver states he / she is not on anticoagulants. Home medication list is obtained from the patient. - Exposure Risk Screening:: None identified. Screenin:14 No information. lr2 12:10 Screening information is obtained from the patient. Fall risk: At risk due to apparent ck1 cognitive impairment, The following interventions are performed due to a positive Fall Risk Screen: Fall Risk is added to Special Handling on the patient Summary Screen. A Fall Risk Bracelet was applied to the patient. Side Rails are placed in the up position. A Call [place] is given with instruction to call for help when getting out of bed. Fall Alert bracelet is placed on the patient. Assistance ADL's: Requires assistance with meal preparation, this assistance is provided by family members, bathing, assistance is provided by family members, dressing, assistance is provided by family members, toileting, assistance is provided by family members, ambulation, assistance is provided by family members, housework, assistance is provided by family members, medication administration, assistance is provided by family members. Abuse/DV Screen: The patient / caregiver reports he/she is: not in a situation that causes fear, pain or injury. Nutritional screening: No deficits noted. home support is adequate. 12:11 Advance Directives: There is no active DNR order. ck1 Assessment: 12:11 General: Appears in no apparent distress, comfortable, Behavior is appropriate for age, ck1 cooperative. Pain: Location: left hip and right hip Is chronic. Neurological: Level of Consciousness is awake, Oriented to person, place. Cardiovascular: Rhythm is sinus rhythm Chest pain is denied. Respiratory: Respiratory effort is unlabored, Respiratory pattern is regular, symmetrical, Reports cough that is productive. GI: No deficits noted. Derm: Skin is intact, is fragile, is thin, Skin is pink, warm & dry. 13:19 General: Appears in no apparent distress, comfortable, talking on phone . Neurological: dsf Level of Consciousness is awake, alert. Cardiovascular: Rhythm is sinus rhythm. Respiratory: Airway is patent Respiratory effort is unlabored, Respiratory pattern is regular, symmetrical. Derm: Skin is pink, warm & dry. 14:15 General: Appears in no apparent distress, comfortable, Behavior is appropriate for age, ck1 cooperative. Pain: Location: right hip and left hip Is chronic. Neurological: Level of Consciousness is awake, alert, obeys commands, Oriented to person, place. Cardiovascular: Rhythm is sinus rhythm Chest pain is denied. Respiratory: Respiratory effort is unlabored, Respiratory pattern is regular, symmetrical. GI: No deficits noted. Derm: Skin is intact, is fragile, is thin, Skin is pink, warm & dry. 15:00 General: Patient is sitting up on stretcher eating lunch. No acute distress noted at ck1 this time. Call light in reach, will continue to monitor patient. 15:33 General: Appears in no apparent distress, comfortable, Behavior is appropriate for age, ck1 cooperative. Pain: Denies pain. Neurological: Level of Consciousness is awake, alert, obeys commands. Cardiovascular: Rhythm is sinus rhythm Chest pain is denied. GI: other tolerated diet tray without difficulty. Derm: Skin is intact, is fragile, is thin, Skin is pink, warm & dry. 16:30 General: Appears in no apparent distress, comfortable, Behavior is appropriate for age, ck1 cooperative. Pain: Denies pain. Neurological: Level of Consciousness is awake, alert, obeys commands, Oriented to person, place. Cardiovascular: Rhythm is sinus rhythm Chest pain is denied. Respiratory: Respiratory effort is unlabored, Respiratory pattern is regular, symmetrical. GI: No deficits noted. Derm: Skin is pink, warm & dry. 17:30 Reassessment: Patient appears in no apparent distress at this time. ck1 18:06 General: Patient is resting quietly on stretcher. Requesting to speak with daughter on ck1 phone. Attempted to call daughter at home, no answer. patient informed that she will be admitted to hospital at least over night for observation. Patient verbalized understanding. No acute distress noted at this time. Call light in reach, will continue to monitor patient. Vital Signs: 11:01 BP 105 / 59 (auto/); ck1 11:02 Pulse 104 MON; Pulse Ox 97% ; ck1 11:10 BP 174 / 67; Pulse 90; Resp 20; Temp 97.2(O); Pulse Ox 94% on R/A; Weight 48.99 kg (R); lr2 Height 5 ft. 1 in. (154.94 cm); 12:00 BP 143 / 67 (auto/); ck1 12:02 Pulse 76 MON; Pulse Ox 100% ; ck1 12:15 BP 144 / 63 (auto/); ck1 12:15 Pulse 74 MON; Pulse Ox 98% ; ck1 12:30 BP 147 / 65 (auto/); ck1 12:30 Pulse 76 MON; Pulse Ox 100% ; ck1 12:45 BP 151 / 72 (auto/); ck1 12:45 Pulse 84 MON; Pulse Ox 100% ; ck1 13:00 BP 140 / 63 (auto/); ck1 13:00 Pulse 72 MON; Pulse Ox 100% ; ck1 13:15 BP 146 / 67 (auto/); ck1 13:15 Pulse 83 MON; Pulse Ox 100% ; ck1 13:30 BP 161 / 71 (auto/); ck1 13:30 Pulse 78 MON; Pulse Ox 100% ; ck1 13:44 Pulse 78 MON; Pulse Ox 96% ; ck1 13:45 BP 151 / 67 (auto/); ck1 14:00 BP 170 / 66 (auto/); ck1 14:00 Pulse 74 MON; ck1 14:15 BP 157 / 60 (auto/); ck1 14:15 Pulse 73 MON; Pulse Ox 100% ; ck1 14:36 BP 169 / 65 (auto/); ck1 14:36 Pulse 80 MON; Pulse Ox 98% ; ck1 14:51 BP 143 / 66 (auto/); ck1 14:51 Pulse 74 MON; Pulse Ox 100% ; ck1 15:06 BP 164 / 72 (auto/); ck1 15:06 Pulse 84 MON; Pulse Ox 100% ; ck1 15:21 BP 165 / 70 (auto/); ck1 15:21 Pulse 80 MON; Pulse Ox 100% ; ck1 15:36 Resp 18; Temp 97.6(O); ck1 15:36 BP 153 / 67 (auto/); ck1 15:36 Pulse 73 MON; Pulse Ox 100% ; ck1 15:39 Pulse 72 MON; Pulse Ox 100% ; ck1 15:51 BP 152 / 67 (auto/); ck1 15:51 Pulse 77 MON; ck1 16:05 Pulse 71 MON; Pulse Ox 100% ; ck1 16:06 BP 144 / 64 (auto/); ck1 16:21 BP 164 / 82 (auto/); ck1 16:21 Pulse 86 MON; Pulse Ox 100% ; ck1 16:36 BP 150 / 62 (auto/); ck1 16:38 Pulse 77 MON; Pulse Ox 100% ; ck1 16:51 BP 150 / 67 (auto/); ck1 16:51 Pulse 76 MON; Pulse Ox 100% ; ck1 17:06 BP 148 / 67 (auto/); ck1 17:06 Pulse 72 MON; Pulse Ox 100% ; ck1 17:21 BP 153 / 68 (auto/); ck1 17:21 Pulse 79 MON; Pulse Ox 100% ; ck1 17:30 Pulse 77 MON; Pulse Ox 100% ; ck1 17:35 Pulse 78 MON; ck1 17:36 BP 152 / 63 (auto/); ck1 18:01 BP 167 / 73 (auto/); ck1 18:01 Pulse 75 MON; Pulse Ox 100% ; ck1 11:10 Body Mass Index 20.41 (48.99 kg, 154.94 cm) lr2 Vitals: 11:10 Log In Time: December 22, 2016 at 11:08. lr2 ED Course: 11:10 Patient visited by Kelly Ramirez. lr2 11:10 Patient moved to Waiting lr2 11:14 Patient moved to Pre RCE lr2 11:17 Triage Initiated srm 11:24 Patient moved to I9 / 22 srm 11:28 Ifrah Crocker MD is Attending Physician. sd1 11:28 Patient visited by Ifrah Crocker MD. sd1 11:43 Yanna Almazan,RN is Primary Nurse. mcp 11:43 Patient moved to 1 mcp 12:00 EKG done. (by ED staff). Reviewed by Ifrah Crocker MD. nb2 12:03 Patient visited by Kiana Chatman. nb2 12:09 BLOOD CULTURES Sent. ck1 12:09 Inserted saline lock: 20 gauge in right antecubital area and blood collected. The ck1 patient tolerated the procedure well. 12:12 The patient / caregiver is instructed regarding the plan of care and ED course. ck1 12:25 Chest, 1 View Returned. EDMS 12:25 CT Head Without Contrast Returned. EDMS 12:34 Patient visited by Yanna Almazan,AARON. ck1 12:34 LIVER PROFILE Sent. ck1 13:05 Patient visited by Yanna Almazan RN. ck1 13:19 Patient visited by Maris Esteban RN. dsf 13:58 Patient visited by Yanna Almazan,AARON. ck1 14:08 CARDIAC INJURY PROFILE Sent. ms2 14:08 TROPONIN Sent. ms2 14:11 Patient visited by Yanna Almazan RN. ck1 14:42 Patient visited by Yanna Almazan,AARON. ck1 14:56 Diet tray given. ck1 15:29 Patient visited by Yanna Almazan RN. ck1 15:39 Pelvis Returned. EDMS 16:00 Patient visited by Yanna Almazan RN. ck1 16:08 [facility] Payment Agreement was scanned into [employer] and attached to record. zo 16:32 Patient visited by Yanna Almazan RN. ck1 17:36 Family spoke with Daughter Kaylee Billy, , went over MRI screen with mem daughter. Discussed mother's condition with daughter after speaking with Dr. Ifrah Ramires. Informed Kaylee that per Dr. Ramires, all labs are normal and ct is normal. We are keeping patient here as an admission to perform further testing. Daughter will come in to see her mother when able to obtain childcare aide. Daughter appreciative of the information given. Reassured daughter, patient will be well taken care of. 17:37 -Arterial Blood Gas Sent. km6 17:52 Patient visited by Yanna Almazan RN. ck1 18:01 Ammonia ([place] Tube on Ice, Not [place]a [place]) Sent. ck1 18:25 Patient visited by Yanna Almazan RN. ck1 18:42 Megan Arzola is Hospitalizing Provider. sd1 18:50 Primary Nurse role handed off by Yanna Almazan,AARON ck1 19:10 Mare Theodore,AARON is Primary Nurse. cf2 19:10 Patient visited by Mare Theodore,AARON. cf2 19:28 Urine Toxicology Sent. cf2 20:07 Patient visited by Mare Theodore,AARON. cf2 20:22 Patient visited by Mare Theodroe,AARON. cf2 20:24 No procedures done that require assistance. cf2 20:36 Patient visited by Nilda Brock PCA. rs6 21:08 -MRI-Brain without Returned. EDMS 21:08 -MRA-Brain without contrast Returned. EDMS 21:41 UA Sent. cf2 21:41 Urine Culture Sent. cf2 22:43 Patient visited by Mare Theodore,AARON. cf2 12/23 13:54 T-Sheet-- Draft Copy was scanned into [employer] and attached to record. gb Administered Medications: 12/22 12:09 Drug: NS 0.9% 1000 ml [sodium chloride 0.9 % intravenous solution] Route: IV; Rate: 250 ck1 mL/hr; Site: right antecubital; 16:32 Follow up: IV Status: Completed infusion ck1 21:22 Drug: traMADol 50 mg [tramadol 50 mg tablet (1 tabs)] Route: PO; cf2 22:05 Follow up: Response: No significant change. cf2 RT: 17:37 ABG's drawn from right radial artery allens test done and positive pressure held for 5 km6 minutes specimen sent pt. tolerated well. Order Results: Lab Order: B-Type Natiuretic Peptide; SPEC'M 12/22/16 12:01 Test: BRAIN NATRIURETIC PEPTIDE; Value: 119; Range: <100; Abnormal: Above high normal; Units: PG/ML; Status: F Lab Order: Basic Metabolic Profile; SPEC'M 12/22/16 12:01 Test: GLUCOSE, FASTING; Value: 181; Range: 83-110; Abnormal: Above high normal; Units: MG/DL; Status: F Test: BLOOD UREA NITROGEN; Value: 17; Range: 7-18; Units: MG/DL; Status: F Test: CREATININE FOR GFR; Value: 0.73; Range: 0.55-1.02; Units: MG/DL; Status: F Test: GLOMERULAR FILTRATION RATE; Value: > 60.0; Range: >39; Status: F Test: SODIUM LEVEL; Value: 137; Range: 136-145; Units: MEQ/L; Status: F Test: POTASSIUM SERUM; Value: 4.4; Range: 3.5-5.1; Units: MEQ/L; Status: F Test: CHLORIDE LEVEL; Value: 100; Range: 98-107; Units: MEQ/L; Status: F Test: CARBON DIOXIDE LEVEL; Value: 26; Range: 21-32; Units: MEQ/L; Status: F Test: ANION GAP; Value: 11; Range: 8-16; Units: MEQ/L; Status: F Test: CALCIUM LEVEL; Value: 9.6; Range: 8.8-10.2; Units: MG/DL; Status: F Test Note: ; Units are mL/min/1.73 m2 Chronic Kidney Disease Staging per NKF: Stage I & II GFR >=60 Normal to Mildly Decreased Stage III GFR 30-59 Moderately Decreased Stage IV GFR 15-29 Severely Decreased Stage V GFR <15 Very Little GFR Left ESRD GFR <15 on GENERAL ASSISTANT Lab Order: CBC with Diff; SPEC'M 12/22/16 12:01 Test: WHITE BLOOD COUNT; Value: 10.9; Range: 4.0-10.0; Abnormal: Above high normal; Units: K/mm3; Status: F Test: RED BLOOD COUNT; Value: 4.64; Range: 4.00-5.40; Units: M/mm3; Status: F Test: HEMOGLOBIN; Value: 13.9; Range: 12.0-16.0; Units: g/dl; Status: F Test: HEMATOCRIT; Value: 41.4; Range: 36.0-47.0; Units: %; Status: F Test: MEAN CORPUSCULAR VOLUME; Value: 89.2; Range: 80.0-96.0; Units: fl; Status: F Test: MEAN CORPUSCULAR HEMOGLOBIN; Value: 29.9; Range: 27.0-33.0; Units: pg; Status: F Test: MEAN CORPUSCULAR HGB CONC; Value: 33.5; Range: 32.0-36.5; Units: g/dl; Status: F Test: RED CELL DISTRIBUTION WIDTH; Value: 12.2; Range: 11.5-14.5; Units: %; Status: F Test: PLATELET COUNT, AUTOMATED; Value: 625; Range: 150-450; Abnormal: Above high normal; Units: k/mm3; Status: F Test: NEUTROPHILS %; Value: 80.4; Range: 36.0-66.0; Abnormal: Above high normal; Units: %; Status: F Test: LYMPH %; Value: 10.9; Range: 24.0-44.0; Abnormal: Below low normal; Units: %; Status: F Test: MONO %; Value: 5.5; Range: 0.0-5.0; Abnormal: Above high normal; Units: %; Status: F Test: EOS %; Value: 0.4; Range: 0.0-3.0; Units: %; Status: F Test: BASO %; Value: 0.3; Range: 0.0-1.0; Units: %; Status: F Test: LARGE UNSTAINED CELL %; Value: 2.5; Range: 0.0-4.0; Units: %; Status: F Test: NEUTROPHILS #; Value: 8.7; Range: 1.8-7.7; Abnormal: Above high normal; Units: K/mm3; Status: F Test: LYMPH #; Value: 1.2; Range: 1.5-4.5; Abnormal: Below low normal; Units: K/mm3; Status: F Test: MONO #; Value: 0.6; Range: 0.0-0.8; Units: K/mm3; Status: F Test: EOS #; Value: 0.0; Range: 0.0-0.50; Units: K/mm3; Status: F Test: BASO #; Value: 0.0; Range: 0.0-0.2; Units: K/mm3; Status: F Test: LARGE UNSTAINED CELL #; Value: 0.3; Range: 0.0-0.4; Units: K/mm3; Status: F Lab Order: Cardiac Injury Profile; SPEC'M 12/22/16 12:01 Test: CPK CREATINE PHOSPHOKINASE; Value: 73; Range: 26-192; Units: U/L; Status: F Test: CK-MB VALUE MASS; Value: 1.6; Range: 0.0-3.6; Units: NG/ML; Status: F Test: MB/CK RELATIVE INDEX; Value: 2.19; Range: < OR =4; Status: F Test Note: ; DIAGNOSIS CRITERIA MMB ng/ml Relative Index (RI) NON-AMI < or = 5 N/A HERRERA [place]ONE > 5 < or = 4 AMI > 5 > 4 Lab Order: Troponin; [facility] 12/22/16 12:01 Test: TROPONIN I; Value: 0.11; Range: < 0.10; Abnormal: Above high normal; Units: NG/ML; Status: F Test Note: ; Troponin I Reference Interval for [place]! LOCI: 99th Percentile= 0.00-0.045 ng/ml Risk Stratification: <= 0.10 ng/ml Decreased Risk for Adverse Clinical Events. 0.10-1.50 ng/ml Increased Risk for Adverse Clinical Events. Evaluation of additional criterion and/or repeat testing in 2-6 hours is suggested to rule out myocardial damage. >= 1.50 ng/ml Indicative of Myocardial Injury. Lab Order: LIVER PROFILE; [facility] 12/22/16 12:01 Test: AST/SGOT; Value: 17; Range: 15-37; Units: U/L; Status: F Test: ALT/SGPT; Value: 17; Range: 12-78; Units: U/L; Status: F Test: ALKALINE PHOSPHATASE; Value: 87; Range: 45-117; Units: U/L; Status: F Test: BILIRUBIN,TOTAL; Value: 0.7; Range: 0.2-1.0; Units: MG/DL; Status: F Test: BILIRUBIN,DIRECT; Value: 0.2; Range: 0.0-0.2; Units: MG/DL; Status: F Test: TOTAL PROTEIN; Value: 8.2; Range: 6.4-8.2; Units: GM/DL; Status: F Test: ALBUMIN; Value: 3.0; Range: 3.2-5.2; Abnormal: Below low normal; Units: GM/DL; Status: F Test: ALBUMIN/GLOBULIN RATIO; Value: 0.58; Range: 1.00-1.93; Abnormal: Below low normal; Status: F Lab Order: TROPONIN; [facility] 12/22/16 14:03 Test: TROPONIN I; Value: 0.09; Range: < 0.10; Units: NG/ML; Status: F Test Note: ; Troponin I Reference Interval for Grasshoppers! LOCI: 99th Percentile= 0.00-0.045 ng/ml Risk Stratification: <= 0.10 ng/ml Decreased Risk for Adverse Clinical Events. 0.10-1.50 ng/ml Increased Risk for Adverse Clinical Events. Evaluation of additional criterion and/or repeat testing in 2-6 hours is suggested to rule out myocardial damage. >= 1.50 ng/ml Indicative of Myocardial Injury. Lab Order: CARDIAC INJURY PROFILE; SPEC'M 12/22/16 14:03 Test: CPK CREATINE PHOSPHOKINASE; Value: 74; Range: 26-192; Units: U/L; Status: F Test: CK-MB VALUE MASS; Value: 1.9; Range: 0.0-3.6; Units: NG/ML; Status: F Test: MB/CK RELATIVE INDEX; Value: 2.56; Range: < OR =4; Status: F Test Note: ; DIAGNOSIS CRITERIA MMB ng/ml Relative Index (RI) NON-AMI < or = 5 N/A HERRERA ZONE > 5 < or = 4 AMI > 5 > 4 Lab Order: Urine Toxicology; SPEC'M 12/22/16 19:23 Test: AMPHETAMINES LEVEL URINE; Value: NEGATIVE; Range: NEGATIVE; Status: F Test: BARBITURATES URINE; Value: NEGATIVE; Range: NEGATIVE; Status: F Test: BENZODIAZEPINES URINE; Value: NEGATIVE; Range: NEGATIVE; Status: F Test: CANNABINOIDS URINE; Value: NEGATIVE; Range: NEGATIVE; Status: F Test: COCAINE METABOLITE URINE; Value: NEGATIVE; Range: NEGATIVE; Status: F Test: METHADONE URINE; Value: NEGATIVE; Range: NEGATIVE; Status: F Test: OPIATES URINE; Value: NEGATIVE; Range: NEGATIVE; Status: F Test: TRICYCLIC ANTIDEPRESS URINE; Value: NEGATIVE; Range: NEGATIVE; Status: F Test Note: ; ALL PRESUMPTIVE POSITIVE FINDINGS ARE UNCONFIRMED NORMAL VALUES THRESHOLD IN NG/ML AMPHETAMINES 1000 METHAMPHETAMINES 1000 BARBITURATES 300 BENZODIAZEPINES 300 CANNABINOIDS (THC) 50 COCAINE METABOLITE 300 METHADONE 300 OPIATES 300 PHENCYCLIDINE 25 TRICYCLIC ANTIDEPRESSANTS 1000 RESULTS ARE FOR MEDICAL PURPOSES ONLY. ALL URINE SPECIMENS WILL BE SAVED FOR 3 DAYS. IF CONFIRMATION OF A PRESUMPTIVE POSTIVE SCREEN RESULT IS DESIRED, CALL CHEMISTRY ([phone]) AND REQUEST URINE TO BE SENT TO REFERENCE LAB. FOR A LIST OF CLOSELY RELATED COMPOUNDS PLEASE CALL THE LAB. Lab Order: Ammonia ([place] Tube on Ice, Not [place]); SPEC'M 12/22/16 18:00 Test: AMMONIA; Value: < 10; Range: <32; Units: uMOL/L; Status: F Lab Order: -Arterial Blood Gas; SPEC'M 12/22/16 17:33 Test: ABG pH (ARTERIAL); Value: 7.477; Range: 7.350-7.450; Abnormal: Above high normal; Units: UNITS; Status: F Test: ABG PARTIAL PRESSURE CO2; Value: 32.2; Range: 35.0-45.0; Abnormal: Below low normal; Units: mmHg; Status: F Test: ABG PARTIAL PRESSURE O2; Value: 164.3; Range: 75.0-100.0; Abnormal: Above high normal; Units: mmHg; Status: F Test: ABG TOTAL CO2; Value: 24.3; Range: 23.0-31.0; Units: MEQ/L; Status: F Test: ABG HCO3; Value: 23.3; Range: 22.0-26.0; Units: MEQ/L; Status: F Test: ABG BASE EXCESS; Value: 0.4; Range: -2.0-2.0; Status: F Test: ABG STANDARD HCO3; Value: 24.9; Range: 22.0-26.0; Units: MEQ/L; Status: F Test: ABG O2 SATURATION; Value: 99.3; Range: 95.0-99.0; Abnormal: Above high normal; Units: %; Status: F Test: ABG DEVICE; Value: NASAL BIRDIE; Status: F Lab Order: UA; SPEC'M 12/22/16 19:23 Test: APPEARANCE, URINE; Value: HAZY; Range: CLEAR; Status: F Test: COLOR, URINE; Value: YELLOW; Range: YELLOW; Status: F Test: PH,URINE; Value: 6.0; Range: 5.0-9.0; Units: UNITS; Status: F Test: SPECIFIC GRAVITY URINE AUTO; Value: 1.018; Range: 1.002-1.035; Status: F Test: PROTEIN, URINE AUTO; Value: 2+; Range: NEGATIVE; Abnormal: Above high normal; Units: mg/dL; Status: F Test: GLUCOSE, URINE (UA) AUTO; Value: 3+; Range: NEGATIVE; Abnormal: Above high normal; Units: mg/dL; Status: F Test: KETONE, URINE AUTO; Value: 1+; Range: NEGATIVE; Abnormal: Above high normal; Units: mg/dL; Status: F Test: UROBILINOGEN, URINE AUTO; Value: 0.2; Range: 0.0-2.0; Units: mg/dL; Status: F Test: BILIRUBIN, URINE AUTO; Value: NEGATIVE; Range: NEGATIVE; Status: F Test: NITRITE, URINE AUTO; Value: NEGATIVE; Range: NEGATIVE; Status: F Test: LEUKOCYTE ESTERASE, URINE AUTO; Value: 1+; Range: NEGATIVE; Abnormal: Above high normal; Status: F Test: BLOOD, URINE BLOOD; Value: 1+; Range: NEGATIVE; Abnormal: Above high normal; Status: F Test: WBC, URINE AUTO; Value: 13; Range: 0-3; Abnormal: Above high normal; Units: /HPF; Status: F Test: RBC, URINE AUTO; Value: 8; Range: 0-3; Abnormal: Above high normal; Units: /HPF; Status: F Test: BACTERIA, URINE AUTO; Value: 1+; Range: NEGATIVE; Abnormal: Above high normal; Status: F Test: SQUAMOUS EPITHELIAL CELL UR AU; Value: 2; Range: 0-6; Units: /HPF; Status: F Test: MUCUS, URINE; Value: MODERATE; Range: NEGATIVE; Status: F Test: HYALINE CAST, URINE AUTO; Value: 4; Range: 0-1; Units: /LPF; Status: F Radiology Order: Chest, 1 View Test: Chest, 1 View REASON FOR EXAMINATION: Cough; Clinical: Cough.; ; Technique: PA chest.; ; Comparison: 01/03/2016.; ; Findings:; Mediastinum and cardiac silhouette are normal. Lung mancia are clear without; acute consolidation, effusion, or pneumothorax. Skeletal structures demonstrate; degenerative changes to the thoracic spine.; ; Impression:; No obvious acute cardiopulmonary process.; ; ; Signed by; Mau Hopper MD 12/22/2016 12:11 P; Radiology Order: CT Head Without Contrast Test: CT Head Without Contrast REASON FOR EXAMINATION: altered mental status; CT HEAD WITHOUT CONTRAST:; ; HISTORY: Altered mental status.; ; Areas of decreased attenuation are present in the periventricular and subcortical; white matter. This represents small vessel ischemic disease. There is no; intraparenchymal hemorrhage, mass or midline shift. The ventricular system and; cortical sulci are dilated consistent with minimal volume loss. There is no; extracerebral collection. Mucosal thickening is present in the ethmoid, frontal; and maxillary sinuses.; ; IMPRESSION:; ; 1. Small vessel ischemic disease.; ; 2. Minimal volume loss.; ; ; Signed by; Jt Ocampo MD 12/22/2016 12:47 P; Radiology Order: Pelvis Test: Pelvis REASON FOR EXAMINATION: Trauma; Clinical: Trauma.; ; Technique: Single AP view of the pelvis.; ; Findings:; Age-related osteopenia and degenerative changes including diffuse and is up at; the appears symmetric. No acute fracture or dislocation.; ; Impression:; Age-related osteopenia and degenerative changes. No acute fracture dislocation; identified.; ; ; Signed by; Mau Hopper MD 12/22/2016 02:47 P; Radiology Order: -MRA-Brain without contrast Test: -MRA-Brain without contrast REASON FOR EXAMINATION: altered mental status; ; MRA of the brain; Clinical history: altered mental status.; Technique: [id number] MRA images of the brain were obtained without administration of contrast. 3; -D MIP images were also obtained.; Findings: The images are suboptimal, likely because of patient motion during the scan. The visualized; portions of the vascular structures extending from the distal carotid and vertebrobasilar arterial s; ystems, through the [place], demonstrate normal caliber and contour. There is no evidence of; aneurysm, stenosis, or thrombosis.; Impression: No gross abnormality on this suboptimal study as described.; The hospitalist was notified of these findings at 8:30 PM on 12/22/2016.; ; Radiology Order: -MRI-Brain without Test: -MRI-Brain without REASON FOR EXAMINATION: alterd mental status; ; MRI of the brain; Clinical history: altered mental status.; Technique: Multiecho multiplanar MRI images of the brain were obtained without administration of cont; rast. Diffusion weighted images with ADC mapping was also obtained.; Findings:; The ventricles and sulci are symmetric bilaterally. The brain parenchyma demonstrates T2 hyperintensi; ty in the periventricular and subcortical white matter bilaterally. There is no midline shift, mass e; ffect, or extra-axial fluid collection. The midline intracranial structures do not demonstrate any gr; oss abnormalities. The cervical cranial junction is intact. The orbits are unremarkable. There is com; plete fluid opacification of the maxillary sinuses bilaterally. The mastoid air cells are clear. The; osseous structures and superficial soft tissues are unremarkable. The vascular structures demonstrate; appropriate flow voids.; Impression:; 1. No evidence of acute infarct.; 2. Mild chronic small vessel ischemic changes.; 3. Bilateral maxillary sinusitis.; The hospitalist was notified of these findings at 8:37 PM on 12/22/2016.; ; Outcome: 14:21 CT Study completed. ck1 18:42 Decision to Hospitalize by Provider. sd1 20:24 Condition: stable. Property :Personal belongings accompany Pt. cf2 22:43 Discharge Assessment: Patient awake, alert and oriented x 3. No cognitive and/or cf2 functional deficits noted. Patient verbalized understanding of disposition instructions. Patient awake and alert. Oriented to person, place and time. patient administered narcotics - yes. Patient was admitted to the hospital or transferred to another facility. The following High Risk Discharge criteria are identified: None. Admitted to Med/Surg. 22:54 Patient left the ED. cf2 Signatures: Dispatcher [employer] EDMS Ifrah Crocker MD MD sd1 Gerry Proctor RN RN ms2 Michelson, Staci, RN RN [facility], [place] Haylie Garcia RN RN [facility] Yolanda Reinoso, Reg Reg gb Adilia Rosado km6 Yanna Almazan RN RN ck1 Hallie Dee Desiree, RN RN dsf Schmitt, Rebecca, [employer] rs6 Haylie Bacon RN RN mem Familetti-Gonzalez, Christina, RN RN cf2 Kiana Chatman2 Kelly Ramirez2 Corrections: (The following items were deleted from the chart) 12:20 12:19 LIVER PROFILE+LAB sent. ck1 EDMS Chart Complete MTDD
--- NOTE | 2016-12-26 06:31 | DSES ---
DATE OF ADMISSION: 12/22/2016 DATE OF DISCHARGE: 12/24/2016 DISCHARGE DIAGNOSIS: Acute metabolic encephalopathy secondary to sinusitis/bronchitis. SECONDARY DIAGNOSES: Spinal stenosis, type 2 diabetes, hypertension, dyslipidemia, gastroesophageal reflux disease, diabetic neuropathy, bladder spasm, seasonal allergies. HOSPITAL COURSE: The patient is a 71-year-old female who is in her usual state of health who has been struggling with memory impairment for the last year or so. Her primary care provider has reportedly undertaken an MRI and completed a fairly extensive outpatient workup I am told by the patient's daughter. The patient was started on donepezil recently although the patient feels as though she does not have dementia and feels as though the primary care provider told her she did not have dementia. The patient also struggles with spinal stenosis and recently referred to Dr. Woo. The entire family at home had a diarrhea illness for which the patient did suffer from as well and although she recovered from the diarrhea, she never regained her energy and became more confused. When she presented to the hospital she did have a cough. She did have a fairly extensive workup here. Despite not having a fever, she had mild leukocytosis. Her blood culture, her urine culture and respiratory panel were all negative. She did have an MRI and MRA of the brain which only revealed sinusitis. She had pelvic x-rays, chest x-ray and CT of the head which were essentially unremarkable. The patient was treated with by mouth Augmentin. Her confusion did resolve over 48 hours. SUBJECTIVE: The patient is awake, alert and oriented times three and to the situation. She denies any chest pain, shortness of breath, fever, chills, nausea, vomiting or diarrhea. She was completely back to her baseline. OBJECTIVE: VITAL SIGNS: Temperature 96.7, pulse 79, respiratory rate 21, blood pressure 127/61, O2 saturation 91% on room air. GENERAL: She is a frail, elderly female sitting in a recliner. She does not appear to be in any acute distress. HEENT: Cranial nerves II through XII are grossly intact. She is balding. She has moist mucous membranes. She has poor dentition. CARDIOVASCULAR: S1, S2, regular. RESPIRATORY: Clear. ABDOMEN: Benign. EXTREMITIES: No clubbing, cyanosis or edema. There is on sinus tenderness. No cervical lymphadenopathy. LABORATORY STUDIES: WBC 9.1, hemoglobin 12.9, hematocrit 39, platelet count is 615. Chemistry panel: Sodium 141, potassium 4.3, chloride 106, bicarbonate 26, BUN 9, creatinine 0.6. She had an equivocal troponin during her stay, fluctuating between 0.11 and 0.12. Imaging as outlined above. ASSESSMENT AND PLAN: This is a 71-year-old female with metabolic encephalopathy secondary to acute medical problems. PROBLEM LIST: 1. Metabolic encephalopathy likely secondary to her diarrhea illness versus bronchitis/sinusitis. The patient's symptom do appear to be improving with her current antibiotic. At this time she is back to her baseline. I have spoken with her daughter. I suspect that she has some underlying dementia which has been decompensated by an acute illness. Will defer dementia workup and diagnosis to her outpatient provider. Could consider referral to an neurologist. At this time, the patient is back to her baseline and she is medically stable for discharge home. 2. Type 2 diabetes. She is controlled on a sliding scale insulin while in the hospital. 3. Hypertension. She is on lisinopril and her blood pressure has been controlled. 4. Dyslipidemia. She is continued on Crestor. 5. Gastroesophageal reflux disease. She is continued on omeprazole. 6. Diabetic neuropathy. She is continued on gabapentin. 7. Seasonal allergies. She is continued on Zyrtec. 8. Bladder spasm. She is continued on oxybutynin. 9. Deep venous thrombosis (DVT) prophylaxis. The patient is on Lovenox. 10. Troponinemia. There was an equivocal troponin without the associated symptoms. Could consider outpatient followup with a raw sampler for stress testing. DISPOSITION: The patient has been cleared by physical therapy. She is medially stable for discharge home. She is back to her baseline in terms of her activities of daily living (ADLs). She is being discharged in the care of her daughter. She is to followup with her primary care provider within 7 days. Her activity is as prior to admission. Her diet is as prior to admission. She is to followup with Dr. Woo as scheduled regarding her back pain. Consider referral to neurology for memory impairment. Return to the ER if her symptoms worsen. MEDICATIONS AT THE TIME OF DISCHARGE: - Augmentin 875 mg by mouth twice a day - Anoro Ellipta 6.25/25 mcg inhaled daily - aspirin 81 mg nightly - Cetirizine 10 mg daily - vitamin D 1000 units daily - donepezil 5 mg daily - gabapentin 600 mg three times a day - Lantus 35 units daily - lisinopril 5 mg nightly - omeprazole 40 mg daily - oxybutynin 5 mg twice a day - Crestor 20 mg nightly - tramadol 50 mg three times a day Greater than 30 minutes spent organizing disposition.
== END 2016-12-24 11:07 | disposition home or self-care (01) | DRG 152 ==
LOC: M ED 11:08 → M ED INP 19:28 → M MSPAV 22:51
PROVIDERS: ADMIT General Practice; ATTEND Internal Medicine
DX: J01.00 Acute maxillary sinusitis, unspecified (principal); G93.41 Metabolic encephalopathy; E11.40 Type 2 diabetes mellitus with diabetic neuropathy, unspecified; K21.9 Gastro-esophageal reflux disease without esophagitis; N32.89 Other specified disorders of bladder; E78.00 Pure hypercholesterolemia, unspecified; F17.210 Nicotine dependence, cigarettes, uncomplicated; M85.80 Other specified disorders of bone density and structure, unspecified site; J30.2 Other seasonal allergic rhinitis; F03.90 Unspecified dementia, unspecified severity, without behavioral disturbance, psychotic disturbance, mood disturbance, and anxiety; Z79.891 Long term (current) use of opiate analgesic; Z79.4 Long term (current) use of insulin; Z85.828 Personal history of other malignant neoplasm of skin; Z79.82 Long term (current) use of aspirin; Z79.899 Other long term (current) drug therapy

== ENCOUNTER → 2017-01-26 | Outpatient (REF) | payer MEDICARE ==
[~2017-01-26] MED LIST changes: +AMOX875T2 PO; +ANOR1AER INH; +ASPI1TAB PO; +CETI10TA PO; +CRES20TA PO; +DONETAB5 PO; +DRIS50002 PO; +GABA600T PO; +LISI-542 PO; +OMEP40CA2 PO; +OXYB5TA PO; +SYMB16INH INH; +TRAM50TA2 PO; +VITA100066 PO
[2017-01-26 14:36] LABS: BASO % 0.6 % (0.0-1.0); EOS # 0.2 K/mm3 (0.0-0.50); EOS % 3.1 % (0.0-3.0); LARGE UNSTAINED CELL # 0.1 K/mm3 (0.0-0.4); LARGE UNSTAINED CELL % 2.4 % (0.0-4.0); LYMPH # 1.5 K/mm3 (1.5-4.5); LYMPH % 27.3 % (24.0-44.0); MEAN CORPUSCULAR HGB CONC 32.7 g/dl (32.0-36.5); MEAN CORPUSCULAR VOLUME 91.5 fl (80.0-96.0); MONO # 0.5 K/mm3 (0.0-0.8); MONO % 8.9 % (0.0-5.0); NEUTROPHILS # 3.2 K/mm3 (1.8-7.7); NEUTROPHILS % 57.7 % (36.0-66.0); PLATELET COUNT, AUTOMATED 395 k/mm3 (150-450); RED CELL DISTRIBUTION WIDTH 12.8 % (11.5-14.5); WHITE BLOOD COUNT 5.6 K/mm3 (4.0-10.0)
[2017-01-26 15:02] LABS: ALBUMIN 3.5 GM/DL (3.2-5.2); ALBUMIN/GLOBULIN RATIO 0.95 (1.00-1.93); ALKALINE PHOSPHATASE 90 U/L (45-117); ALT/SGPT 19 U/L (12-78); ANION GAP 8 MEQ/L (8-16); AST/SGOT 21 U/L (15-37); BILIRUBIN,TOTAL 0.4 MG/DL (0.2-1.0); BLOOD UREA NITROGEN 11 MG/DL (7-18); CALCIUM LEVEL 8.9 MG/DL (8.8-10.2); CARBON DIOXIDE LEVEL 27 MEQ/L (21-32); CHLORIDE LEVEL 95 MEQ/L (98-107); CREATININE FOR GFR 0.72 MG/DL (0.55-1.02); GLOMERULAR FILTRATION RATE > 60.0 (>39); GLUCOSE, FASTING 198 MG/DL (83-110); POTASSIUM SERUM 4.6 MEQ/L (3.5-5.1); SODIUM LEVEL 130 MEQ/L (136-145); TOTAL PROTEIN 7.2 GM/DL (6.4-8.2)
[2017-01-26 15:39] LABS: ERYTHROCYTE SEDIMENTATION RATE 44 mm/hr (0-30)
[2017-01-27 09:55] LABS: FOLATE 16.6 NG/ML; VITAMIN B12 LEVEL 680 PG/ML
[2017-01-28 10:06] LABS: ALBUMIN 3.59 GM/DL (3.29-5.55); ALBUMIN % 49.9 % (55.8-66.1); GAMMA GLOBULIN % 16.9 % (11.1-18.8)
[2017-01-29 00:08] LABS: VITAMIN E LEVEL 8.5 mg/L (6.5-21.5)
== END ==
LOC: M LABNEURO 12:51
PROVIDERS: ATTEND Psychiatry & Neurology Neurology
DX: F09 Unspecified mental disorder due to known physiological condition (principal); Z79.899 Other long term (current) drug therapy; Z79.82 Long term (current) use of aspirin

== ENCOUNTER → 2020-10-03 | Outpatient (REF) | payer MEDICARE ==
[~2020-10-03] MED LIST changes: -ASPI1TAB PO; +ASPI81TA26 PO; -CRES20TA PO; +CRES20TA2 PO; -DRIS50002 PO; +DRIS50003 PO; -GABA600T PO; +GABA600T4 PO; +METO-346 PO; -METO12TA PO; +NICO14DI20 EXT; -NICO14PA EXT; -OMEP40CA2 PO; +OMEP40CA97 PO; -OXYB5TA PO; +OXYB5TAB10 PO
[2020-10-03 17:47] LABS: ALBUMIN 3.6 GM/DL (3.2-5.2); ALT/SGPT 18 U/L (12-78); BILIRUBIN,TOTAL 0.5 MG/DL (0.2-1.0); BLOOD UREA NITROGEN 19 MG/DL (7-18); CALCIUM LEVEL 9.8 MG/DL (8.8-10.2); CARBON DIOXIDE LEVEL 28 MEQ/L (21-32); CHLORIDE LEVEL 92 MEQ/L (98-107); CREATININE FOR GFR 0.88 MG/DL (0.55-1.30); GLOMERULAR FILTRATION RATE > 60.0 (>39); GLUCOSE, FASTING 145 MG/DL (70-100); POTASSIUM SERUM 4.6 MEQ/L (3.5-5.1); SODIUM LEVEL 126 MEQ/L (136-145); TOTAL PROTEIN 7.2 GM/DL (6.4-8.2)
[2020-10-03 20:36] LABS: HEMOGLOBIN A1c 8.3 %
== END ==
LOC: M LAB REF 16:23
PROVIDERS: ATTEND Physician Assistant
DX: E87.1 Hypo-osmolality and hyponatremia (principal); E11.21 Type 2 diabetes mellitus with diabetic nephropathy

== ENCOUNTER → 2020-11-14 | Outpatient (REF) | payer MEDICARE ==
[2020-11-14 13:48] LABS: HEMOGLOBIN A1c 7.7 %
[2020-11-14 14:02] LABS: ALBUMIN 3.6 GM/DL (3.2-5.2); BILIRUBIN,TOTAL 0.5 MG/DL (0.2-1.0); CALCIUM LEVEL 9.3 MG/DL (8.8-10.2); CHOLESTEROL RISK RATIO 1.571 (<5); CREATININE FOR GFR 1.13 MG/DL (0.55-1.30); POTASSIUM SERUM 5.2 MEQ/L (3.5-5.1); THYROID STIMULATING HORMONE 1.24 uIU/ML (0.358-3.740); TOTAL PROTEIN 6.9 GM/DL (6.4-8.2)
== END ==
LOC: M LAB REF 12:37
PROVIDERS: ATTEND Family Medicine Addiction Medicine
DX: E11.9 Type 2 diabetes mellitus without complications (principal)

== ENCOUNTER → 2021-02-06 | Outpatient (REF) | payer MEDICARE ==
[~2021-02-06] MED LIST changes: -LISI-542 PO; +LISI-898 PO
[2021-02-06 13:30] LABS: HEMOGLOBIN A1c 7.8 %
[2021-02-06 13:57] LABS: ALBUMIN 3.7 GM/DL (3.2-5.2); ALT/SGPT 20 U/L (12-78); BILIRUBIN,TOTAL 0.4 MG/DL (0.2-1.0); BLOOD UREA NITROGEN 18 MG/DL (7-18); CALCIUM LEVEL 9.5 MG/DL (8.8-10.2); CARBON DIOXIDE LEVEL 29 MEQ/L (21-32); CHLORIDE LEVEL 95 MEQ/L (98-107); CHOLESTEROL LEVEL 129 MG/DL (<200); CHOLESTEROL RISK RATIO 1.925 (<5); CREATININE FOR GFR 0.86 MG/DL (0.55-1.30); GLOMERULAR FILTRATION RATE > 60.0 (>39); GLUCOSE, FASTING 171 MG/DL (70-100); HDL CHOLESTEROL 67 MG/DL (>40); LDL CHOLESTEROL 51 MG/DL (<100); NON-HDL-C 62 MG/DL; SODIUM LEVEL 129 MEQ/L (136-145); TOTAL PROTEIN 7.1 GM/DL (6.4-8.2); TRIGLYCERIDES LEVEL 53 MG/DL (<150)
== END ==
LOC: M LAB REF 11:32
PROVIDERS: ATTEND Family Medicine Addiction Medicine
DX: E11.69 Type 2 diabetes mellitus with other specified complication (principal)

== ENCOUNTER → 2023-09-10 | Outpatient (REF) | payer MEDICARE ==
[~2023-09-10] MED LIST changes: +DONE5TAB86 PO; -DONETAB5 PO; -LISI-898 PO; +LISI5TAB11 PO; +OMEP40CA4 PO; -OMEP40CA97 PO; -OXYB5TAB10 PO; +OXYB5TAB11 PO
[2023-09-10 20:31] LABS: MAU/CREAT RATIO 420.5 MCG/MG (0.0-30.0)
== END ==
LOC: M LAB REF 19:24
PROVIDERS: ATTEND Family Medicine Addiction Medicine
DX: E11.9 Type 2 diabetes mellitus without complications (principal)

== ENCOUNTER 2023-10-25 16:58 | Observation (INO) | payer MEDICARE ==
[~2023-10-25] VITALS: Ht 144.8 cm; Wt 48.2 kg
[2023-10-25] MEDS ORDERED: IPRATROPIUM 0.5MG/ALBUTEROL 2.5MG INH SOL UD 3ML (DUONEB) NEB ONE (17:40)
[2023-10-25 17:46] LABS: BASO # 0.1 10^3/uL (0.0-0.2); BASO % 0.5 % (0.0-1.0); EOS # 0.2 10^3/uL (0.0-0.5); EOS % 2.1 % (0.0-3.0); HEMATOCRIT 40.2 % (36.0-47.0); HEMOGLOBIN 13.5 g/dl (12.0-15.5); LYMPH # 2.6 10^3/uL (1.5-5.0); LYMPH % 23.6 % (24.0-44.0); MEAN CORPUSCULAR HEMOGLOBIN 30.3 pg (27.0-33.0); MEAN CORPUSCULAR HGB CONC 33.6 g/dl (32.0-36.5); MEAN CORPUSCULAR VOLUME 90.3 fl (80.0-96.0); MONO # 0.9 10^3/uL (0.0-0.8); MONO % 8.2 % (2.0-8.0); NEUTROPHILS # 7.2 10^3/uL (1.5-8.5); NEUTROPHILS % 65.2 % (36.0-66.0); PLATELET COUNT, AUTOMATED 354 10^3/uL (150-450); RED BLOOD COUNT 4.45 10^6/uL (4.00-5.40); WHITE BLOOD COUNT 11.1 10^3/uL (4.0-10.0)
[2023-10-25 17:58] LABS: BLOOD UREA NITROGEN 15 MG/DL (9-23); CALCIUM LEVEL 9.7 MG/DL (8.3-10.6); CARBON DIOXIDE LEVEL 25 MMOL/L (20-31); CHLORIDE LEVEL 97 MMOL/L (98-107); CREATININE FOR GFR 0.74 MG/DL (0.55-1.30); GLOMERULAR FILTRATION RATE > 60.0 (>39); GLUCOSE, FASTING 306 MG/DL (74-106); SODIUM LEVEL 131 MMOL/L (136-145)
[2023-10-25] MEDS ORDERED: NS 500 ML IV ONE (18:25)
[2023-10-25] MEDS ORDERED: HumuLIN R (REGULAR) INSULIN (NovoLIN R) **100U/ML** PER UNIT IV ONE (18:25)
[2023-10-25] MEDS ORDERED: METOCLOPRAMIDE INJ 10MG/2ML VIAL IV ONE (20:50)
[2023-10-25 22:30] LABS: RSV AMPLIFICATION NEGATIVE (NEGATIVE)
[2023-10-25] MEDS ORDERED: MOM 30ML SUSPENSION UDC PO PRN (23:10)
[2023-10-25] MEDS ORDERED: ACETAMINOPHEN TAB 650MG DOSE (2X325MG) PO PRN (23:10)
[2023-10-25] MEDS ORDERED: DEXTROSE 50% 50ML SYRINGE IV PRN (23:10)
[2023-10-25] MEDS ORDERED: GLUCOSE 4GM CHEW TABLET PO PRN (23:10)
[2023-10-25] MEDS ORDERED: GLUCAGON INJ 1MG VIAL SC PRN (23:10)
[2023-10-25] MEDS ORDERED: MAALOX 30 ML SUSP *UDC PO PRN (23:10)
[2023-10-26] MEDS ORDERED: ALBUTEROL 90 MCG/ACT 8GM HFA INHALER INH PRN (02:10)
[2023-10-26 07:02] LABS: BLOOD UREA NITROGEN 17 MG/DL (9-23); CALCIUM LEVEL 9.7 MG/DL (8.3-10.6); CARBON DIOXIDE LEVEL 28 MMOL/L (20-31); CHLORIDE LEVEL 100 MMOL/L (98-107); CREATININE FOR GFR 0.86 MG/DL (0.55-1.30); GLOMERULAR FILTRATION RATE > 60.0 (>39); GLUCOSE, FASTING 223 MG/DL (74-106); SODIUM LEVEL 136 MMOL/L (136-145)
[2023-10-26] MEDS ORDERED: ENOXAPARIN 40MG/0.4ML SYRINGE (J1650 PER 10MG) SC SCH (09:00)
[2023-10-26] MEDS: INSULIN LISPRO (NovoLOG) PER UNIT SC SCH ×2 (10:16→13:03)
[2023-10-26] MEDS ORDERED: HOME MED LIST COMPLETE! XX SCH (13:15)
[2023-10-26 14:00] VITALS: BP 134/62; TEMP 98.2; O2SAT 99
[2023-10-26] MEDS ORDERED: INSULIN LISPRO (NovoLOG) PER UNIT SC SCH (21:00)
== END 2023-10-26 14:25 | disposition home or self-care (01) ==
LOC: M ED 16:58 → EDUNIT# 16:58 → EDBD 16:58 → M ED INP 16:59 → ENRESERV 10-26 12:55
PROVIDERS: ADMIT Internal Medicine; ATTEND Internal Medicine
DX: T18.128A Food in esophagus causing other injury, initial encounter (principal); K22.0 Achalasia of cardia; K22.2 Esophageal obstruction; D72.829 Elevated white blood cell count, unspecified; R91.1 Solitary pulmonary nodule; E11.9 Type 2 diabetes mellitus without complications; K21.9 Gastro-esophageal reflux disease without esophagitis; F03.90 Unspecified dementia, unspecified severity, without behavioral disturbance, psychotic disturbance, mood disturbance, and anxiety; J44.9 Chronic obstructive pulmonary disease, unspecified; Z79.4 Long term (current) use of insulin; Z79.899 Other long term (current) drug therapy
CPT/HCPCS: 36415; 71045; 71250; 80048; 85025; 87631; 92610; 94640; 96374; 96375; 99285; G0378; J1815; J2765

== ENCOUNTER 2023-12-11 14:16 | Inpatient (IN) | payer MEDICARE ==
[~2023-12-11] VITALS: Ht 162.6 cm; Wt 48.5 kg
[~2023-12-11 14:16] MED LIST changes: -OXYB5TAB11 PO; +OXYB5TAB14 PO
[2023-12-11] MEDS: NS 1,000 ML IV SCH (15:09)
[2023-12-11 15:10] LABS: BASO % 0.3 % (0.0-1.0); EOS # 0.1 10^3/uL (0.0-0.5); EOS % 1.3 % (0.0-3.0); HEMATOCRIT 34.4 % (36.0-47.0); HEMOGLOBIN 11.4 g/dl (12.0-15.5); LYMPH # 0.9 10^3/uL (1.5-5.0); LYMPH % 9.1 % (24.0-44.0); MEAN CORPUSCULAR HEMOGLOBIN 29.9 pg (27.0-33.0); MEAN CORPUSCULAR HGB CONC 33.1 g/dl (32.0-36.5); MEAN CORPUSCULAR VOLUME 90.3 fl (80.0-96.0); MONO # 0.6 10^3/uL (0.0-0.8); MONO % 6.1 % (2.0-8.0); NEUTROPHILS # 8.4 10^3/uL (1.5-8.5); NEUTROPHILS % 82.8 % (36.0-66.0); PLATELET COUNT, AUTOMATED 270 10^3/uL (150-450); RED BLOOD COUNT 3.81 10^6/uL (4.00-5.40); WHITE BLOOD COUNT 10.1 10^3/uL (4.0-10.0)
[2023-12-11 15:11] LABS: VENOUS HCO3 23.3 MMOL/L (23.0-27.0); VENOUS O2 SATURATION 98.4 % (60.0-80.0); VENOUS PARTIAL PRESSURE O2 129.7 mmHg (30.0-50.0); VENOUS PH 7.466 UNITS (7.330-7.430); VENOUS STANDARD HCO3 24.6 MMOL/L; VENOUS TOTAL CO2 24.3 MMOL/L (24.0-28.0)
[2023-12-11 15:14] LABS: AMPHETAMINES LEVEL URINE NEGATIVE (NEGATIVE); BARBITURATES URINE NEGATIVE (NEGATIVE); BENZODIAZEPINES URINE NEGATIVE (NEGATIVE); COCAINE METABOLITE URINE NEGATIVE (NEGATIVE)
[2023-12-11 15:15] LABS: CANNABINOIDS URINE NEGATIVE (NEGATIVE); METHADONE URINE NEGATIVE (NEGATIVE); OPIATES URINE NEGATIVE (NEGATIVE); PHENCYCLIDINE URINE NEGATIVE (NEGATIVE)
[2023-12-11 15:42] LABS: C REACTIVE PROTEIN QUANTITATIV < 0.40 MG/DL (<1.0); ETHYL ALCOHOL (ETHANOL) 0.004 % (0.000-0.010)
[2023-12-11 15:44] LABS: SALICYLATE LEVEL < 3.0 MG/DL (<30)
[2023-12-11] MEDS: NS 1,000 ML IV ONE (15:51)
[2023-12-11 15:55] LABS: PROCALCITONIN <0.04 ng/ml
[2023-12-11] MEDS ORDERED: HOME MED LIST COMPLETE! XX SCH (15:55)
[2023-12-11 16:00] LABS: ALBUMIN 3.2 G/DL (3.2-5.2); ALKALINE PHOSPHATASE 83 U/L (46-116); ALT/SGPT 16 U/L (7.0-40); AST/SGOT 11 U/L (<34); BILIRUBIN,DIRECT 0.2 MG/DL (<0.4); BILIRUBIN,TOTAL 0.6 MG/DL (0.3-1.2); BLOOD UREA NITROGEN 24 MG/DL (9-23); CALCIUM LEVEL 9.2 MG/DL (8.3-10.6); CARBON DIOXIDE LEVEL 26 MMOL/L (20-31); CHLORIDE LEVEL 100 MMOL/L (98-107); CREATININE FOR GFR 0.72 MG/DL (0.55-1.30); GLOMERULAR FILTRATION RATE > 60.0 (>39); GLUCOSE, FASTING 486 MG/DL (74-106); POTASSIUM SERUM 4.3 MMOL/L (3.5-5.1); SODIUM LEVEL 133 MMOL/L (136-145); THYROID STIMULATING HORMONE 1.766 uIU/ML (0.55-4.78); TOTAL PROTEIN 6.4 G/DL (5.7-8.2)
[2023-12-11] MEDS: cefTRIAXone SOD 1 GM in D5W MINI-BAG PLUS 50 ML IV ONE (16:20)
[2023-12-11] MEDS: INSULIN LISPRO (NovoLOG) PER UNIT SC ONE (16:21)
[2023-12-11] MEDS ORDERED: ISOVUE-370 76% 100ML VIAL As Ordered ONE (16:44)
[2023-12-11] MEDS ORDERED: GLUCOSE 4GM CHEW TABLET PO PRN (20:25)
[2023-12-11] MEDS ORDERED: ACETAMINOPHEN TAB 650MG DOSE (2X325MG) PO PRN (20:25)
[2023-12-11] MEDS ORDERED: GLUCAGON INJ 1MG VIAL SC PRN (20:25)
[2023-12-11] MEDS ORDERED: DEXTROSE 50% 50ML SYRINGE IV PRN (20:25)
[2023-12-11] MEDS: DOCUSATE SODIUM 100MG CAPSULE PO SCH (21:05)
[2023-12-11 21:11] LABS: HEMOGLOBIN A1c > 14.0 % (4.0-6.0)
[2023-12-11 22:02] LABS: INR 0.98; PROTHROMBIN TIME 12.7 SECONDS (12.5-14.5)
[2023-12-11 22:45] VITALS: BP 158/77; TEMP 97.5; O2SAT 100
[2023-12-11] MEDS: INSULIN LISPRO (NovoLOG) PER UNIT SC SCH (23:51)
[2023-12-12] VITALS (20 sets, daily range): BP systolic 78–167; BP diastolic 51–73; TEMP 97.3–98; O2SAT 95–100
[2023-12-12 06:04] LABS: HEMATOCRIT 33.1 % (36.0-47.0); HEMOGLOBIN 11.1 g/dl (12.0-15.5); MEAN CORPUSCULAR HEMOGLOBIN 30.1 pg (27.0-33.0); MEAN CORPUSCULAR HGB CONC 33.5 g/dl (32.0-36.5); MEAN CORPUSCULAR VOLUME 89.7 fl (80.0-96.0); PLATELET COUNT, AUTOMATED 289 10^3/uL (150-450); RED BLOOD COUNT 3.69 10^6/uL (4.00-5.40); WHITE BLOOD COUNT 10.3 10^3/uL (4.0-10.0)
[2023-12-12 06:39] LABS: ALBUMIN 2.9 G/DL (3.2-5.2); ALKALINE PHOSPHATASE 75 U/L (46-116); ALT/SGPT 14 U/L (7.0-40); AST/SGOT 16 U/L (<34); BILIRUBIN,TOTAL 0.8 MG/DL (0.3-1.2); BLOOD UREA NITROGEN 21 MG/DL (9-23); CALCIUM LEVEL 8.9 MG/DL (8.3-10.6); CARBON DIOXIDE LEVEL 28 MMOL/L (20-31); CHLORIDE LEVEL 106 MMOL/L (98-107); CREATININE FOR GFR 0.76 MG/DL (0.55-1.30); GLOMERULAR FILTRATION RATE > 60.0 (>39); GLUCOSE, FASTING 180 MG/DL (74-106); MAGNESIUM LEVEL 1.8 MG/DL (1.8-2.4); POTASSIUM SERUM 4.1 MMOL/L (3.5-5.1); SODIUM LEVEL 140 MMOL/L (136-145); TOTAL PROTEIN 5.9 G/DL (5.7-8.2)
[2023-12-12] MEDS: NS 1,000 ML IV SCH ×2 (07:34→10:41)
[2023-12-12] MEDS: MIDODRINE 5 MG TAB PO STA (07:41)
[2023-12-12] MEDS: FLUDROCORTISONE ACETATE 0.1 MG TAB PO STA (07:41)
[2023-12-12] MEDS: ENOXAPARIN 40MG/0.4ML SYRINGE (J1650 PER 10MG) SC SCH (07:42)
[2023-12-12] MEDS ORDERED: CEFDINIR 300 MG CAP (OMNICEF) PO SCH (09:00)
[2023-12-12] MEDS: PIPERACILLIN/TAZOBACTAM SOD 4.5 GM in D5W MINI-BAG PLUS 50 ML IV SCH (10:41)
[2023-12-12 10:57] LABS: INR 1.03; PROTHROMBIN TIME 13.2 SECONDS (12.5-14.5)
[2023-12-12 10:58] LABS: PARTIAL THROMBOPLASTIN TIME 29.6 SECONDS (24.8-34.2)
[2023-12-12 11:16] LABS: C REACTIVE PROTEIN QUANTITATIV < 0.40 MG/DL (<1.0); CK-MB VALUE MASS < 1.0 NG/ML (<3.6)
[2023-12-12 11:21] LABS: FREE T4 1.22 NG/DL (0.89-1.76); THYROID STIMULATING HORMONE 3.065 uIU/ML (0.55-4.78)
[2023-12-12 11:24] LABS: PROCALCITONIN <0.04 ng/ml
[2023-12-12 11:25] LABS: CPK CREATINE PHOSPHOKINASE 119 U/L (34-145); MB/CK RELATIVE INDEX 0.84 (< OR =4)
[2023-12-12] MEDS: INSULIN LISPRO (NovoLOG) PER UNIT SC SCH ×2 (11:30→20:34)
[2023-12-12 14:33] LABS: FREE T3 2.5 PG/ML (2.3-4.2)
[2023-12-12] MEDS: MOM 30ML SUSPENSION UDC PO PRN (15:38)
[2023-12-13] VITALS (10 sets, daily range): BP systolic 115–149; BP diastolic 56–76; TEMP 97.3–98.3; O2SAT 95–99
[2023-12-13] MEDS: LEVEMIR (INSULIN DETEMIR) 1 UNITS/0.01ML SC ONE (11:36)
[2023-12-13 11:59] LABS: BASO % 0.5 % (0.0-1.0); EOS # 0.4 10^3/uL (0.0-0.5); EOS % 5.4 % (0.0-3.0); HEMATOCRIT 33.3 % (36.0-47.0); HEMOGLOBIN 10.9 g/dl (12.0-15.5); LYMPH # 1.3 10^3/uL (1.5-5.0); LYMPH % 16.7 % (24.0-44.0); MEAN CORPUSCULAR HEMOGLOBIN 30.1 pg (27.0-33.0); MEAN CORPUSCULAR HGB CONC 32.7 g/dl (32.0-36.5); MONO # 0.8 10^3/uL (0.0-0.8); MONO % 10.1 % (2.0-8.0); NEUTROPHILS # 5.1 10^3/uL (1.5-8.5); NEUTROPHILS % 66.9 % (36.0-66.0); PLATELET COUNT, AUTOMATED 315 10^3/uL (150-450); RED BLOOD COUNT 3.62 10^6/uL (4.00-5.40); WHITE BLOOD COUNT 7.6 10^3/uL (4.0-10.0)
[2023-12-13 12:17] LABS: BLOOD UREA NITROGEN 16 MG/DL (9-23); CALCIUM LEVEL 8.6 MG/DL (8.3-10.6); CARBON DIOXIDE LEVEL 27 MMOL/L (20-31); CHLORIDE LEVEL 108 MMOL/L (98-107); CHOLESTEROL LEVEL 189 MG/DL (<200); CHOLESTEROL RISK RATIO 4.18 (<5); CREATININE FOR GFR 0.79 MG/DL (0.55-1.30); GLOMERULAR FILTRATION RATE > 60.0 (>39); GLUCOSE, FASTING 219 MG/DL (74-106); HDL CHOLESTEROL 45.2 MG/DL (>40); LDL CHOLESTEROL 117.6 MG/DL (<100); NON-HDL-C 143.8 MG/DL; POTASSIUM SERUM 3.9 MMOL/L (3.5-5.1); SODIUM LEVEL 140 MMOL/L (136-145); TRIGLYCERIDES LEVEL 131 MG/DL (<150)
[2023-12-13 12:44] LABS: HEMOGLOBIN A1c > 14.0 % (4.0-6.0)
[2023-12-13] MEDS: LEVEMIR (INSULIN DETEMIR) 1 UNITS/0.01ML SC SCH (20:10)
[2023-12-14] VITALS (7 sets, daily range): BP systolic 126–204; BP diastolic 58–94; TEMP 96.9–98.8; O2SAT 95–99
[2023-12-14 05:29] LABS: HEMATOCRIT 30.1 % (36.0-47.0); HEMOGLOBIN 9.9 g/dl (12.0-15.5); MEAN CORPUSCULAR HEMOGLOBIN 30.3 pg (27.0-33.0); MEAN CORPUSCULAR HGB CONC 32.9 g/dl (32.0-36.5); PLATELET COUNT, AUTOMATED 280 10^3/uL (150-450); RED BLOOD COUNT 3.27 10^6/uL (4.00-5.40); WHITE BLOOD COUNT 7.7 10^3/uL (4.0-10.0)
[2023-12-14] MEDS ORDERED: ceFAZolin SOD 2 GM in IV 1 EA IV ONE (06:30)
[2023-12-14] MEDS ORDERED: LIDOCAINE 2% 100MG/5ML SDV (FOR ANES.) As Ordered ONE (12:24)
[2023-12-14] MEDS ORDERED: propofoL 200 MG/20 ML VIAL As Ordered ONE (12:24)
[2023-12-14] MEDS ORDERED: fentaNYL 100 MCG/2 ML INJECTION As Ordered ONE (12:24)
[2023-12-14] MEDS ORDERED: LIDOCAINE 1% MDV 20ML VIAL As Ordered ONE (12:27)
[2023-12-14] MEDS ORDERED: ACETAMINOPHEN 1000MG 100ML IV BAG As Ordered ONE (13:51)
[2023-12-14] MEDS ORDERED: oxyCODONE 5MG TAB PO PRN (14:55)
[2023-12-14] MEDS ORDERED: fentaNYL 100 MCG/2 ML INJECTION IV PRN (14:55)
[2023-12-14] MEDS ORDERED: ONDANSETRON 4MG 2ML VIAL IV PRN (14:55)
[2023-12-14] MEDS: MAALOX 30 ML SUSP *UDC PO PRN (20:19)
[2023-12-14] MEDS ORDERED: hydrALAZINE 20MG/ML 1ML VIAL IV PRN (20:30)
[2023-12-14] MEDS: amLODIPine 5 MG TAB PO ONE (21:00)
[2023-12-15] VITALS (7 sets, daily range): BP systolic 140–178; BP diastolic 64–81; TEMP 97.1–97.6; O2SAT 96–98
[2023-12-15 04:33] LABS: HEMATOCRIT 32.9 % (36.0-47.0); HEMOGLOBIN 11.1 g/dl (12.0-15.5); MEAN CORPUSCULAR HEMOGLOBIN 30.2 pg (27.0-33.0); MEAN CORPUSCULAR HGB CONC 33.7 g/dl (32.0-36.5); MEAN CORPUSCULAR VOLUME 89.4 fl (80.0-96.0); PLATELET COUNT, AUTOMATED 295 10^3/uL (150-450); RED BLOOD COUNT 3.68 10^6/uL (4.00-5.40); WHITE BLOOD COUNT 8.4 10^3/uL (4.0-10.0)
[2023-12-15 05:02] LABS: BLOOD UREA NITROGEN 13 MG/DL (9-23); CALCIUM LEVEL 8.6 MG/DL (8.3-10.6); CARBON DIOXIDE LEVEL 28 MMOL/L (20-31); CHLORIDE LEVEL 106 MMOL/L (98-107); CREATININE FOR GFR 0.77 MG/DL (0.55-1.30); GLOMERULAR FILTRATION RATE > 60.0 (>39); GLUCOSE, FASTING 214 MG/DL (74-106); POTASSIUM SERUM 3.5 MMOL/L (3.5-5.1); SODIUM LEVEL 138 MMOL/L (136-145)
[2023-12-15] MEDS ORDERED: FARX1TAB3 PO (11:36)
[2023-12-15] MEDS ORDERED: METF500T13 PO (11:36)
[2023-12-15] MEDS ORDERED: LISI5TAB11 PO (11:36)
[2023-12-15] MEDS: lisinopriL 5 MG TAB PO SCH (12:04)
== END 2023-12-15 15:01 | disposition home health service (06) | DRG 853 ==
LOC: EDBD 14:16 → M ED 14:16 → M ED INP 20:24 → ENRESERV 22:30 → M MSPAV 22:46 → M ICU 12-12 08:26
PROVIDERS: ADMIT Internal Medicine; ATTEND Internal Medicine
PROC: 02H63JZ Insertion of Pacemaker Lead into Right Atrium, Percutaneous Approach (ICD-10-PCS; 2023-12-14)
PROC: 02HK3JZ Insertion of Pacemaker Lead into Right Ventricle, Percutaneous Approach (ICD-10-PCS; 2023-12-14)
PROC: 0JH606Z Insertion of Pacemaker, Dual Chamber into Chest Subcutaneous Tissue and Fascia, Open Approach (ICD-10-PCS; principal; 2023-12-14 13:55)
DX: A41.9 Sepsis, unspecified organism (principal); G93.41 Metabolic encephalopathy; I46.9 Cardiac arrest, cause unspecified; I44.2 Atrioventricular block, complete; N39.0 Urinary tract infection, site not specified; R65.20 Severe sepsis without septic shock; I10 Essential (primary) hypertension; E11.65 Type 2 diabetes mellitus with hyperglycemia; J44.9 Chronic obstructive pulmonary disease, unspecified; E78.5 Hyperlipidemia, unspecified; K21.9 Gastro-esophageal reflux disease without esophagitis; Z79.899 Other long term (current) drug therapy; Z79.4 Long term (current) use of insulin; F03.90 Unspecified dementia, unspecified severity, without behavioral disturbance, psychotic disturbance, mood disturbance, and anxiety; Z66 Do not resuscitate; Z98.41 Cataract extraction status, right eye; Z98.42 Cataract extraction status, left eye; E11.40 Type 2 diabetes mellitus with diabetic neuropathy, unspecified; I08.0 Rheumatic disorders of both mitral and aortic valves

== ENCOUNTER 2024-04-14 20:35 | Inpatient (IN) | payer MEDICARE ==
[~2024-04-14] VITALS: Ht 160 cm; Wt 41.5 kg
[~2024-04-14 20:35] MED LIST changes: +FARX1TAB3 PO; +METF500T13 PO
[2024-04-14 22:11] LABS: BASO # 0.1 10^3/uL (0.0-0.2); BASO % 0.7 % (0.0-1.0); EOS # 0.2 10^3/uL (0.0-0.5); HEMATOCRIT 36.3 % (36.0-47.0); HEMOGLOBIN 12.5 g/dl (12.0-15.5); LYMPH # 1.6 10^3/uL (1.5-5.0); MEAN CORPUSCULAR HEMOGLOBIN 30.1 pg (27.0-33.0); MEAN CORPUSCULAR HGB CONC 34.4 g/dl (32.0-36.5); MEAN CORPUSCULAR VOLUME 87.5 fl (80.0-96.0); MONO # 0.9 10^3/uL (0.0-0.8); MONO % 9.9 % (2.0-8.0); NEUTROPHILS # 5.8 10^3/uL (1.5-8.5); NEUTROPHILS % 68.2 % (36.0-66.0); PLATELET COUNT, AUTOMATED 277 10^3/uL (150-450); RED BLOOD COUNT 4.15 10^6/uL (4.00-5.40); WHITE BLOOD COUNT 8.6 10^3/uL (4.0-10.0)
[2024-04-14 22:36] LABS: ALBUMIN 3.7 G/DL (3.2-5.2); ALKALINE PHOSPHATASE 91 U/L (46-116); ALT/SGPT 18 U/L (7.0-40); AST/SGOT 18 U/L (<34); BILIRUBIN,DIRECT 0.2 MG/DL (<0.4); BILIRUBIN,TOTAL 0.8 MG/DL (0.3-1.2); BLOOD UREA NITROGEN 30 MG/DL (9-23); CALCIUM LEVEL 9.9 MG/DL (8.3-10.6); CARBON DIOXIDE LEVEL 26 MMOL/L (20-31); CHLORIDE LEVEL 97 MMOL/L (98-107); CK-MB VALUE MASS 1.4 NG/ML (<3.6); CPK CREATINE PHOSPHOKINASE 114 U/L (34-145); CREATININE FOR GFR 0.93 MG/DL (0.55-1.30); GLOMERULAR FILTRATION RATE > 60.0 (>39); GLUCOSE, FASTING 585 MG/DL (74-106); MB/CK RELATIVE INDEX 1.22 (< OR =4); POTASSIUM SERUM 4.4 MMOL/L (3.5-5.1); SODIUM LEVEL 131 MMOL/L (136-145); THYROID STIMULATING HORMONE 1.526 uIU/ML (0.55-4.78); TOTAL PROTEIN 6.7 G/DL (5.7-8.2)
[2024-04-14] MEDS ORDERED: LISI5TAB11 PO (23:14)
[2024-04-14] MEDS ORDERED: ROSU20TA61 PO (23:14)
[2024-04-14] MEDS ORDERED: DONE5TAB82 PO (23:14)
[2024-04-14] MEDS ORDERED: HOME MED LIST COMPLETE! XX SCH (23:15)
[2024-04-14 23:36] LABS: CK-MB VALUE MASS 1.5 NG/ML (<3.6); MB/CK RELATIVE INDEX 1.16 (< OR =4)
[2024-04-14] MEDS: HumuLIN R (REGULAR) INSULIN (NovoLIN R) **100U/ML** PER UNIT IV ONE (23:56)
[2024-04-15] MEDS ORDERED: GLUCAGON INJ 1MG VIAL SC PRN (01:00)
[2024-04-15] MEDS ORDERED: DEXTROSE 50% 50ML SYRINGE IV PRN (01:00)
[2024-04-15] MEDS ORDERED: GLUCOSE 4 GM CHEW PO PRN (01:00)
[2024-04-15] MEDS: cefTRIAXone SOD 1 GM in D5W MINI-BAG PLUS 50 ML IV ONE (01:25)
[2024-04-15] MEDS: NS 1,000 ML IV SCH (02:12)
[2024-04-15 05:09] VITALS: BP 148/69; TEMP 97.9; O2SAT 96
[2024-04-15 07:54] LABS: BLOOD UREA NITROGEN 27 MG/DL (9-23); CALCIUM LEVEL 8.9 MG/DL (8.3-10.6); CARBON DIOXIDE LEVEL 26 MMOL/L (20-31); CHLORIDE LEVEL 106 MMOL/L (98-107); CREATININE FOR GFR 0.84 MG/DL (0.55-1.30); GLOMERULAR FILTRATION RATE > 60.0 (>39); GLUCOSE, FASTING 331 MG/DL (74-106); POTASSIUM SERUM 4.3 MMOL/L (3.5-5.1); SODIUM LEVEL 138 MMOL/L (136-145)
[2024-04-15] MEDS: INSULIN LISPRO (NovoLOG) PER UNIT SC SCH ×2 (08:25→08:33)
[2024-04-15 08:33] LABS: HEMOGLOBIN A1c > 14.0 % (4.0-6.0)
[2024-04-15] MEDS: LEVEMIR (INSULIN DETEMIR) 1 UNITS/0.01ML SC SCH (08:33)
[2024-04-15] MEDS: ENOXAPARIN 40MG/0.4ML SYRINGE (J1650 PER 10MG) SC SCH (08:33)
[2024-04-15] MEDS: ROSUVASTATIN 10 MG TAB (CRESTOR) PO SCH (08:34)
[2024-04-15] MEDS: DONEPEZIL 5 MG TAB PO SCH (08:34)
[2024-04-15] MEDS: oxyBUTYnin 5 MG TAB PO SCH (08:34)
[2024-04-15] MEDS: lisinopriL 5 MG TAB PO SCH (08:36)
[2024-04-15 12:00] VITALS: BP 134/62; TEMP 97.7; O2SAT 98
[2024-04-15] MEDS: HumuLIN R (REGULAR) INSULIN (NovoLIN R) **100U/ML** PER UNIT SC ONE (14:38)
[2024-04-15] MEDS ORDERED: INSULIN LISPRO (NovoLOG) PER UNIT SC SCH (17:30)
[2024-04-15 20:00] VITALS: BP 114/46; TEMP 97.7; O2SAT 94
[2024-04-16] MEDS: cefTRIAXone SOD 1 GM in D5W MINI-BAG PLUS 50 ML IV SCH (00:11)
[2024-04-16 04:00] VITALS: BP 104/66; TEMP 97.5; O2SAT 95
[2024-04-16 07:21] LABS: BLOOD UREA NITROGEN 26 MG/DL (9-23); CALCIUM LEVEL 8.9 MG/DL (8.3-10.6); CARBON DIOXIDE LEVEL 22 MMOL/L (20-31); CHLORIDE LEVEL 110 MMOL/L (98-107); CREATININE FOR GFR 0.86 MG/DL (0.55-1.30); GLOMERULAR FILTRATION RATE > 60.0 (>39); GLUCOSE, FASTING 151 MG/DL (74-106); POTASSIUM SERUM 4.5 MMOL/L (3.5-5.1); SODIUM LEVEL 139 MMOL/L (136-145)
[2024-04-16] MEDS: LEVEMIR (INSULIN DETEMIR) 1 UNITS/0.01ML SC ONE (10:08)
[2024-04-16] MEDS ORDERED: OXYB5TAB14 PO (11:43)
[2024-04-16] MEDS ORDERED: LISI5TAB11 PO (11:43)
[2024-04-16] MEDS ORDERED: INSULANT SC (11:43)
[2024-04-16] MEDS ORDERED: CEFD1CAP9 PO (11:43)
[2024-04-16 12:23] VITALS: TEMP 97.7; O2SAT 97
[2024-04-16] MEDS ORDERED: LANC1COM MC (12:43)
[2024-04-16] MEDS ORDERED: LANCMIS33 TOP (12:49)
[2024-04-16] MEDS ORDERED: BLOO1STR9 VI (12:49)
[2024-04-16] MEDS ORDERED: [UNRECOGNIZED DRUG - OTHER] XX (12:50)
[2024-04-16] MEDS ORDERED: [UNRECOGNIZED DRUG - CODE] XX (12:50)
[2024-04-16] MEDS: INSULIN LISPRO (NovoLOG) PER UNIT SC STA (16:51)
[2024-04-16] MEDS: INSULIN LISPRO (NovoLOG) PER UNIT SC SCH ×2 (18:11→19:55)
[2024-04-16] MEDS: LEVEMIR (INSULIN DETEMIR) 1 UNITS/0.01ML SC SCH (19:58)
[2024-04-16 20:00] VITALS: BP 134/59; TEMP 97.9; O2SAT 93
[2024-04-17 00:30] VITALS: BP 132/77; TEMP 97.5; O2SAT 95
[2024-04-17 02:21] LABS: ALBUMIN 3.3 G/DL (3.2-5.2); ALKALINE PHOSPHATASE 68 U/L (46-116); ALT/SGPT 15 U/L (7.0-40); AST/SGOT 18 U/L (<34); BILIRUBIN,TOTAL 0.4 MG/DL (0.3-1.2); BLOOD UREA NITROGEN 24 MG/DL (9-23); CALCIUM LEVEL 9.6 MG/DL (8.3-10.6); CARBON DIOXIDE LEVEL 24 MMOL/L (20-31); CHLORIDE LEVEL 106 MMOL/L (98-107); CREATININE FOR GFR 0.93 MG/DL (0.55-1.30); GLOMERULAR FILTRATION RATE > 60.0 (>39); GLUCOSE, FASTING 84 MG/DL (74-106); POTASSIUM SERUM 4.3 MMOL/L (3.5-5.1); SODIUM LEVEL 137 MMOL/L (136-145); TOTAL PROTEIN 6.2 G/DL (5.7-8.2)
[2024-04-17 04:00] VITALS: BP 119/49; TEMP 97.4; O2SAT 96
[2024-04-17] MEDS ORDERED: LANTINJ4 SC (06:04)
[2024-04-17 08:10] VITALS: BP 124/58
== END 2024-04-17 10:07 | disposition home or self-care (01) | DRG 638 ==
LOC: M ED 20:35 → M ED INP 04-15 00:38 → M MSPAV 04-15 04:41
PROVIDERS: ADMIT Preventive Medicine Undersea and Hyperbaric Medicine; ATTEND Student in an Organized Health Care Education/Training Program
DX: E11.65 Type 2 diabetes mellitus with hyperglycemia (principal); N39.0 Urinary tract infection, site not specified; K92.1 Melena; I44.2 Atrioventricular block, complete; F03.90 Unspecified dementia, unspecified severity, without behavioral disturbance, psychotic disturbance, mood disturbance, and anxiety; I10 Essential (primary) hypertension; J44.9 Chronic obstructive pulmonary disease, unspecified; E11.40 Type 2 diabetes mellitus with diabetic neuropathy, unspecified; E78.5 Hyperlipidemia, unspecified; K21.9 Gastro-esophageal reflux disease without esophagitis; Z79.4 Long term (current) use of insulin; Z91.148 Patient's other noncompliance with medication regimen for other reason; Z79.899 Other long term (current) drug therapy; Z98.41 Cataract extraction status, right eye; Z98.42 Cataract extraction status, left eye; Z95.0 Presence of cardiac pacemaker; Z87.891 Personal history of nicotine dependence; R32 Unspecified urinary incontinence

== ENCOUNTER 2024-05-24 11:56 | Emergency (ER) | payer MEDICARE, MEDICAID ==
[~2024-05-24 11:56] MED LIST changes: +BLOO1STR9 VI; +CEFD1CAP9 PO; +DONE5TAB82 PO; +LANC1COM MC; +LANCMIS33 TOP; +LANTINJ4 SC; +ROSU20TA61 PO; +[UNRECOGNIZED DRUG - CODE] XX; +[UNRECOGNIZED DRUG - OTHER] XX
[2024-05-24 13:01] LABS: HEMATOCRIT 33.2 % (36.0-47.0); HEMOGLOBIN 10.8 g/dl (12.0-15.5); MEAN CORPUSCULAR HEMOGLOBIN 30.1 pg (27.0-33.0); MEAN CORPUSCULAR HGB CONC 32.5 g/dl (32.0-36.5); MEAN CORPUSCULAR VOLUME 92.5 fl (80.0-96.0); PLATELET COUNT, AUTOMATED 274 10^3/uL (150-450); RED BLOOD COUNT 3.59 10^6/uL (4.00-5.40); WHITE BLOOD COUNT 8.4 10^3/uL (4.0-10.0)
[2024-05-24 13:16] LABS: INR 0.99; PARTIAL THROMBOPLASTIN TIME 23.2 SECONDS (24.8-34.2); PROTHROMBIN TIME 12.8 SECONDS (12.5-14.5)
[2024-05-24 13:18] LABS: CALCIUM LEVEL 9.7 MG/DL (8.3-10.6); GLOMERULAR FILTRATION RATE 57.1 (>39); POTASSIUM SERUM 4.3 MMOL/L (3.5-5.1)
[2024-05-24 14:06] VITALS: TEMP 97.5
[2024-05-24 15:15] VITALS: BP 128/77
[2024-05-24] MEDS: BENZONATATE 100MG CAPSULE PO ONE (15:17)
[2024-05-24 15:26] VITALS: O2SAT 95
[2024-05-24] MEDS ORDERED: BENZ200C70 PO (16:50)
== END 2024-05-24 21:26 | disposition home or self-care (01) ==
LOC: M ED 11:56 → EDBD 11:56 → M ED 21:26
DX: R05.9 Cough, unspecified (principal); E11.9 Type 2 diabetes mellitus without complications; I10 Essential (primary) hypertension; J44.9 Chronic obstructive pulmonary disease, unspecified; E78.5 Hyperlipidemia, unspecified; Z79.2 Long term (current) use of antibiotics; Z79.4 Long term (current) use of insulin; Z79.899 Other long term (current) drug therapy

== ENCOUNTER 2024-06-22 13:15 | Emergency (ER) | payer MEDICARE, MEDICAID ==
[~2024-06-22 13:15] MED LIST changes: +BENZ200C70 PO
[2024-06-22 13:28] VITALS: TEMP 97.7
[2024-06-22 14:12] LABS: BASO % 0.5 % (0.0-1.0); EOS # 0.4 10^3/uL (0.0-0.5); EOS % 4.3 % (0.0-3.0); HEMATOCRIT 34.4 % (36.0-47.0); HEMOGLOBIN 11.3 g/dl (12.0-15.5); LYMPH # 0.9 10^3/uL (1.5-5.0); LYMPH % 11.6 % (24.0-44.0); MEAN CORPUSCULAR HEMOGLOBIN 30.1 pg (27.0-33.0); MEAN CORPUSCULAR HGB CONC 32.8 g/dl (32.0-36.5); MEAN CORPUSCULAR VOLUME 91.7 fl (80.0-96.0); MONO # 0.7 10^3/uL (0.0-0.8); MONO % 8.6 % (2.0-8.0); NEUTROPHILS # 6.1 10^3/uL (1.5-8.5); NEUTROPHILS % 74.8 % (36.0-66.0); PLATELET COUNT, AUTOMATED 311 10^3/uL (150-450); RED BLOOD COUNT 3.75 10^6/uL (4.00-5.40); WHITE BLOOD COUNT 8.1 10^3/uL (4.0-10.0)
[2024-06-22 14:32] LABS: HEMOGLOBIN A1c 12.9 % (4.0-6.0)
[2024-06-22 14:43] LABS: ETHYL ALCOHOL (ETHANOL) 0.003 % (0.000-0.010)
[2024-06-22 14:45] LABS: SALICYLATE LEVEL < 3.0 MG/DL (<30)
[2024-06-22 14:46] VITALS: BP 179/74
[2024-06-22 14:46] LABS: THYROID STIMULATING HORMONE 1.287 uIU/ML (0.55-4.78)
[2024-06-22 14:54] LABS: ALBUMIN 3.3 G/DL (3.2-5.2); ALKALINE PHOSPHATASE 101 U/L (46-116); ALT/SGPT 15 U/L (7.0-40); AST/SGOT 13 U/L (<34); BILIRUBIN,DIRECT 0.2 MG/DL (<0.4); BILIRUBIN,TOTAL 0.7 MG/DL (0.3-1.2); BLOOD UREA NITROGEN 28 MG/DL (9-23); CALCIUM LEVEL 9.5 MG/DL (8.3-10.6); CARBON DIOXIDE LEVEL 26 MMOL/L (20-31); CHLORIDE LEVEL 98 MMOL/L (98-107); CREATININE FOR GFR 0.82 MG/DL (0.55-1.30); GLOMERULAR FILTRATION RATE > 60.0 (>39); GLUCOSE, FASTING 694 MG/DL (74-106); POTASSIUM SERUM 4.8 MMOL/L (3.5-5.1); SODIUM LEVEL 129 MMOL/L (136-145); TOTAL PROTEIN 7.1 G/DL (5.7-8.2)
[2024-06-22] MEDS: HumuLIN R (REGULAR) INSULIN (NovoLIN R) **100U/ML** PER UNIT IV ONE (15:21)
[2024-06-22 15:31] LABS: AMPHETAMINES LEVEL URINE NEGATIVE (NEGATIVE); BARBITURATES URINE NEGATIVE (NEGATIVE); BENZODIAZEPINES URINE NEGATIVE (NEGATIVE); CANNABINOIDS URINE NEGATIVE (NEGATIVE); COCAINE METABOLITE URINE NEGATIVE (NEGATIVE); METHADONE URINE NEGATIVE (NEGATIVE); OPIATES URINE NEGATIVE (NEGATIVE); PHENCYCLIDINE URINE NEGATIVE (NEGATIVE)
[2024-06-22 16:15] VITALS: O2SAT 100
== END 2024-06-22 16:46 | disposition home or self-care (01) ==
LOC: EDBD 13:15 → M ED 13:15
DX: R41.82 Altered mental status, unspecified (principal); E11.65 Type 2 diabetes mellitus with hyperglycemia; I44.0 Atrioventricular block, first degree; I44.7 Left bundle-branch block, unspecified; I10 Essential (primary) hypertension; J44.9 Chronic obstructive pulmonary disease, unspecified; K21.9 Gastro-esophageal reflux disease without esophagitis; F03.90 Unspecified dementia, unspecified severity, without behavioral disturbance, psychotic disturbance, mood disturbance, and anxiety; Z79.811 Long term (current) use of aromatase inhibitors; Z79.899 Other long term (current) drug therapy
CPT/HCPCS: 70450; 71045; 80048; 80076; 80143; 80307; 81001; 82077; 82140; 83036; 83605; 84443; 85025; 87040; 87088; 87186; 93005; 93041; 94760; 96374; 99285; J1815

== ENCOUNTER 2024-06-24 18:05 | Observation (INO) | payer MEDICARE, MEDICAID ==
[~2024-06-24] VITALS: Ht 154.9 cm; Wt 45.7 kg
[~2024-06-24 18:05] MED LIST changes: +GABA-1490 PO; -GABA600T4 PO; -ROSU20TA61 PO; +ROSU20TA86 PO
[2024-06-24 19:48] LABS: ETHYL ALCOHOL (ETHANOL) < 0.003 % (0.000-0.010)
[2024-06-24 19:50] LABS: ACETONE/KETONE 0.19 MMOL/L (0.02-0.27); SALICYLATE LEVEL < 3.0 MG/DL (<30)
[2024-06-24 19:54] LABS: ALBUMIN 3.3 G/DL (3.2-5.2); ALKALINE PHOSPHATASE 93 U/L (46-116); ALT/SGPT 22 U/L (7.0-40); AST/SGOT 32 U/L (<34); BILIRUBIN,DIRECT 0.1 MG/DL (<0.4); BILIRUBIN,TOTAL 0.6 MG/DL (0.3-1.2); BLOOD UREA NITROGEN 27 MG/DL (9-23); CALCIUM LEVEL 9.3 MG/DL (8.3-10.6); CARBON DIOXIDE LEVEL 26 MMOL/L (20-31); CHLORIDE LEVEL 101 MMOL/L (98-107); GLOMERULAR FILTRATION RATE > 60.0 (>39); GLUCOSE, FASTING 511 MG/DL (74-106); LIPASE 163 U/L (12-53); POTASSIUM SERUM 5.6 MMOL/L (3.5-5.1); SODIUM LEVEL 132 MMOL/L (136-145); TOTAL PROTEIN 7.2 G/DL (5.7-8.2)
[2024-06-24 20:01] LABS: BASO # 0.1 10^3/uL (0.0-0.2); BASO % 0.6 % (0.0-1.0); EOS # 0.5 10^3/uL (0.0-0.5); EOS % 4.6 % (0.0-3.0); HEMATOCRIT 32.9 % (36.0-47.0); HEMOGLOBIN 10.8 g/dl (12.0-15.5); LYMPH # 1.4 10^3/uL (1.5-5.0); LYMPH % 13.3 % (24.0-44.0); MEAN CORPUSCULAR HGB CONC 32.8 g/dl (32.0-36.5); MEAN CORPUSCULAR VOLUME 91.4 fl (80.0-96.0); MONO # 0.9 10^3/uL (0.0-0.8); MONO % 8.1 % (2.0-8.0); NEUTROPHILS # 7.9 10^3/uL (1.5-8.5); PLATELET COUNT, AUTOMATED 321 10^3/uL (150-450); WHITE BLOOD COUNT 10.8 10^3/uL (4.0-10.0)
[2024-06-24 20:28] LABS: HEMOGLOBIN A1c 12.8 % (4.0-6.0)
[2024-06-24 20:36] LABS: OSMOLALITY SERUM 322 MOSM/KG (280-301)
[2024-06-24] MEDS: HumuLIN R (REGULAR) INSULIN (NovoLIN R) **100U/ML** PER UNIT IV ONE (20:45)
[2024-06-24] MEDS ORDERED: BASA100I SC (23:16)
[2024-06-24] MEDS ORDERED: HOME MED LIST COMPLETE! XX SCH (23:20)
[2024-06-25] MEDS: cefTRIAXone SOD 1 GM in DEXTROSE 5% (D5W) ADV/MINI-BAG 50 ML IV ONE (00:30)
[2024-06-25 01:25] LABS: PROCALCITONIN <0.04 ng/ml
[2024-06-25] MEDS ORDERED: PATIROMER SORBITEX CALCIUM 8.4 GM POWDER PACKET (VELTASSA) PO ONE (02:00)
[2024-06-25] MEDS ORDERED: INSULIN LISPRO (NovoLOG) PER UNIT SC ONE (02:00)
[2024-06-25 02:33] LABS: BLOOD UREA NITROGEN 22 MG/DL (9-23); CALCIUM LEVEL 8.8 MG/DL (8.3-10.6); CARBON DIOXIDE LEVEL 26 MMOL/L (20-31); CHLORIDE LEVEL 106 MMOL/L (98-107); CREATININE FOR GFR 0.72 MG/DL (0.55-1.30); GLOMERULAR FILTRATION RATE > 60.0 (>39); GLUCOSE, FASTING 262 MG/DL (74-106); POTASSIUM SERUM 4.1 MMOL/L (3.5-5.1); SODIUM LEVEL 137 MMOL/L (136-145)
[2024-06-25] MEDS ORDERED: GLUCOSE 4 GM CHEW PO PRN (07:05)
[2024-06-25] MEDS ORDERED: GLUCAGON INJ 1MG VIAL SC PRN (07:05)
[2024-06-25] MEDS ORDERED: DEXTROSE 50% 50ML SYRINGE IV PRN (07:05)
[2024-06-25 07:37] LABS: HEMATOCRIT 32.1 % (36.0-47.0); HEMOGLOBIN 10.7 g/dl (12.0-15.5); MEAN CORPUSCULAR HEMOGLOBIN 30.2 pg (27.0-33.0); MEAN CORPUSCULAR HGB CONC 33.3 g/dl (32.0-36.5); MEAN CORPUSCULAR VOLUME 90.7 fl (80.0-96.0); PLATELET COUNT, AUTOMATED 289 10^3/uL (150-450); RED BLOOD COUNT 3.54 10^6/uL (4.00-5.40); WHITE BLOOD COUNT 13.6 10^3/uL (4.0-10.0)
[2024-06-25] MEDS: oxyBUTYnin 5 MG TAB PO SCH (08:47)
[2024-06-25] MEDS: ENOXAPARIN 40MG/0.4ML SYRINGE (J1650 PER 10MG) SC SCH (08:47)
[2024-06-25] MEDS: INSULIN LISPRO (NovoLOG) PER UNIT SC SCH ×2 (08:48→20:30)
[2024-06-25] MEDS: LEVEMIR (INSULIN DETEMIR) 1 UNITS/0.01ML SC SCH ×2 (08:48→20:34)
[2024-06-25] MEDS ORDERED: LEVEMIR (INSULIN DETEMIR) 1 UNITS/0.01ML SC SCH (09:00)
[2024-06-25] MEDS ORDERED: MIRALAX *UNIT DOSE* 17GM PACKET PO PRN (13:10)
[2024-06-25] MEDS: DOCUSATE SODIUM 100MG CAPSULE PO SCH (14:42)
[2024-06-25 14:43] VITALS: BP 117/44; TEMP 97.5; O2SAT 98
[2024-06-25 16:00] VITALS: BP 127/45; TEMP 97.3; O2SAT 95
[2024-06-25 20:02] VITALS: BP 141/76; TEMP 97.5; O2SAT 100
[2024-06-25] MEDS: ROSUVASTATIN 10 MG TAB (CRESTOR) PO SCH (20:34)
[2024-06-26] MEDS: cefTRIAXone SOD 1 GM in DEXTROSE 5% (D5W) ADV/MINI-BAG 50 ML IV SCH (01:27)
[2024-06-26 04:03] VITALS: BP 119/60; TEMP 97.5; O2SAT 96
[2024-06-26 06:28] LABS: HEMATOCRIT 33.2 % (36.0-47.0); HEMOGLOBIN 10.7 g/dl (12.0-15.5); MEAN CORPUSCULAR HEMOGLOBIN 29.6 pg (27.0-33.0); MEAN CORPUSCULAR HGB CONC 32.2 g/dl (32.0-36.5); MEAN CORPUSCULAR VOLUME 91.7 fl (80.0-96.0); PLATELET COUNT, AUTOMATED 288 10^3/uL (150-450); RED BLOOD COUNT 3.62 10^6/uL (4.00-5.40); WHITE BLOOD COUNT 8.2 10^3/uL (4.0-10.0)
[2024-06-26 07:03] LABS: ALKALINE PHOSPHATASE 89 U/L (46-116); ALT/SGPT 16 U/L (7.0-40); AST/SGOT 17 U/L (<34); BILIRUBIN,TOTAL 0.6 MG/DL (0.3-1.2); BLOOD UREA NITROGEN 19 MG/DL (9-23); CALCIUM LEVEL 9.5 MG/DL (8.3-10.6); CARBON DIOXIDE LEVEL 28 MMOL/L (20-31); CHLORIDE LEVEL 105 MMOL/L (98-107); CREATININE FOR GFR 0.81 MG/DL (0.55-1.30); GLOMERULAR FILTRATION RATE > 60.0 (>39); GLUCOSE, FASTING 118 MG/DL (74-106); POTASSIUM SERUM 4.3 MMOL/L (3.5-5.1); SODIUM LEVEL 136 MMOL/L (136-145); TOTAL PROTEIN 6.4 G/DL (5.7-8.2)
[2024-06-26 08:00] VITALS: BP 147/60; TEMP 97.3; O2SAT 98
[2024-06-26 12:00] VITALS: BP 149/61; TEMP 97.3; O2SAT 98
[2024-06-26] MEDS ORDERED: ONDANSETRON 4MG ORAL DISINTEGRATING TAB PO ONE (13:00)
[2024-06-26] MEDS ORDERED: CEFD300CAP PO (15:42)
== END 2024-06-26 16:34 | disposition home or self-care (01) ==
LOC: M ED 18:05 → M ED INP 18:06 → M MSPAV 06-25 14:40
PROVIDERS: ADMIT Student in an Organized Health Care Education/Training Program; ATTEND Internal Medicine
DX: E11.65 Type 2 diabetes mellitus with hyperglycemia (principal); Z91.148 Patient's other noncompliance with medication regimen for other reason; N39.0 Urinary tract infection, site not specified; G93.41 Metabolic encephalopathy; F03.90 Unspecified dementia, unspecified severity, without behavioral disturbance, psychotic disturbance, mood disturbance, and anxiety; I10 Essential (primary) hypertension; E78.5 Hyperlipidemia, unspecified; R32 Unspecified urinary incontinence; Z79.4 Long term (current) use of insulin; Z79.2 Long term (current) use of antibiotics; Z79.899 Other long term (current) drug therapy; Z88.1 Allergy status to other antibiotic agents
CPT/HCPCS: 36415; 80047; 80048; 80053; 80076; 80143; 81001; 82010; 82077; 83036; 83690; 83930; 84145; 85025; 85027; 87040; 87086; 93005; 93041; 94760; 96365; 96366; 96372; 96375; 97116; 97161; 97165; 97530; 99285; G0378; J0696; J1650; J1815

== ENCOUNTER 2024-07-02 20:38 | Emergency (ER) | payer MEDICARE, MEDICAID ==
[~2024-07-02] VITALS: Ht 157.5 cm; Wt 45.5 kg
[~2024-07-02 20:38] MED LIST changes: +BASA100I SC; +CEFD300CAP PO; +ROSU20TA61 PO; -ROSU20TA86 PO
[2024-07-02 20:59] VITALS: TEMP 97.7
[2024-07-02 21:38] LABS: BASO # 0.1 10^3/uL (0.0-0.2); BASO % 0.9 % (0.0-1.0); EOS # 0.3 10^3/uL (0.0-0.5); EOS % 4.1 % (0.0-3.0); HEMATOCRIT 32.2 % (36.0-47.0); HEMOGLOBIN 10.5 g/dl (12.0-15.5); LYMPH # 1.6 10^3/uL (1.5-5.0); LYMPH % 19.5 % (24.0-44.0); MEAN CORPUSCULAR HEMOGLOBIN 30.2 pg (27.0-33.0); MEAN CORPUSCULAR HGB CONC 32.6 g/dl (32.0-36.5); MEAN CORPUSCULAR VOLUME 92.5 fl (80.0-96.0); MONO # 0.9 10^3/uL (0.0-0.8); MONO % 11.4 % (2.0-8.0); NEUTROPHILS # 5.2 10^3/uL (1.5-8.5); NEUTROPHILS % 63.9 % (36.0-66.0); PLATELET COUNT, AUTOMATED 344 10^3/uL (150-450); RED BLOOD COUNT 3.48 10^6/uL (4.00-5.40); WHITE BLOOD COUNT 8.1 10^3/uL (4.0-10.0)
[2024-07-02 21:55] LABS: ALBUMIN 3.2 G/DL (3.2-5.2); ALKALINE PHOSPHATASE 97 U/L (46-116); ALT/SGPT 17 U/L (7.0-40); AST/SGOT 17 U/L (<34); BILIRUBIN,DIRECT 0.2 MG/DL (<0.4); BILIRUBIN,TOTAL 0.6 MG/DL (0.3-1.2); BLOOD UREA NITROGEN 25 MG/DL (9-23); CALCIUM LEVEL 9.5 MG/DL (8.3-10.6); CARBON DIOXIDE LEVEL 28 MMOL/L (20-31); CHLORIDE LEVEL 99 MMOL/L (98-107); CREATININE FOR GFR 0.91 MG/DL (0.55-1.30); GLOMERULAR FILTRATION RATE > 60.0 (>39); GLUCOSE, FASTING 540 MG/DL (74-106); POTASSIUM SERUM 4.6 MMOL/L (3.5-5.1); SODIUM LEVEL 133 MMOL/L (136-145); THYROID STIMULATING HORMONE 2.211 uIU/ML (0.55-4.78); TOTAL PROTEIN 6.9 G/DL (5.7-8.2)
[2024-07-02] MEDS: HumuLIN R (REGULAR) INSULIN (NovoLIN R) **100U/ML** PER UNIT IV ONE ×2 (22:50→23:51)
[2024-07-02 23:53] VITALS: O2SAT 97
[2024-07-03] VITALS: BP 133/60
== END 2024-07-03 01:15 | disposition home or self-care (01) ==
LOC: EDBD 20:38 → M ED 20:38
DX: E11.65 Type 2 diabetes mellitus with hyperglycemia (principal); F03.90 Unspecified dementia, unspecified severity, without behavioral disturbance, psychotic disturbance, mood disturbance, and anxiety; I44.0 Atrioventricular block, first degree; I44.7 Left bundle-branch block, unspecified; I10 Essential (primary) hypertension; J44.9 Chronic obstructive pulmonary disease, unspecified; K21.9 Gastro-esophageal reflux disease without esophagitis; Z90.89 Acquired absence of other organs; Z88.8 Allergy status to other drugs, medicaments and biological substances; Z79.4 Long term (current) use of insulin; Z79.2 Long term (current) use of antibiotics; Z79.899 Other long term (current) drug therapy
CPT/HCPCS: 80048; 80076; 81001; 84443; 85025; 93005; 93041; 94760; 96374; 99285; J1815

== ENCOUNTER 2024-07-15 10:55 | Inpatient (IN) | payer MEDICARE, MEDICAID ==
[2024-07-15 12:23] LABS: BASO # 0.1 10^3/uL (0.0-0.2); BASO % 0.6 % (0.0-1.0); EOS # 0.4 10^3/uL (0.0-0.5); EOS % 4.4 % (0.0-3.0); HEMATOCRIT 33.5 % (36.0-47.0); HEMOGLOBIN 10.8 g/dl (12.0-15.5); LYMPH % 12.5 % (24.0-44.0); MEAN CORPUSCULAR HEMOGLOBIN 29.6 pg (27.0-33.0); MEAN CORPUSCULAR HGB CONC 32.2 g/dl (32.0-36.5); MEAN CORPUSCULAR VOLUME 91.8 fl (80.0-96.0); MONO # 0.9 10^3/uL (0.0-0.8); MONO % 11.3 % (2.0-8.0); NEUTROPHILS # 5.6 10^3/uL (1.5-8.5); NEUTROPHILS % 71.1 % (36.0-66.0); PLATELET COUNT, AUTOMATED 330 10^3/uL (150-450); RED BLOOD COUNT 3.65 10^6/uL (4.00-5.40); WHITE BLOOD COUNT 7.9 10^3/uL (4.0-10.0)
[2024-07-15] MEDS ORDERED: HOME MED LIST COMPLETE! XX SCH (12:35)
[2024-07-15 12:37] LABS: THYROID STIMULATING HORMONE 1.704 uIU/ML (0.55-4.78)
[2024-07-15 12:45] LABS: CALCIUM LEVEL 9.7 MG/DL (8.3-10.6); CREATININE FOR GFR 0.97 MG/DL (0.55-1.30); GLOMERULAR FILTRATION RATE 59.1 (>39); POTASSIUM SERUM 4.8 MMOL/L (3.5-5.1)
[2024-07-15 12:46] LABS: VENOUS HCO3 29.6 MMOL/L (23.0-27.0); VENOUS O2 SATURATION 61.5 % (60.0-80.0); VENOUS PARTIAL PRESSURE CO2 54.5 mmHg (38.0-50.0); VENOUS PARTIAL PRESSURE O2 33.2 mmHg (30.0-50.0); VENOUS PH 7.353 UNITS (7.330-7.430); VENOUS STANDARD HCO3 26.4 MMOL/L; VENOUS TOTAL CO2 31.3 MMOL/L (24.0-28.0)
[2024-07-15 12:57] LABS: HEMOGLOBIN A1c 12.5 % (4.0-6.0)
[2024-07-15] MEDS: HumuLIN R (REGULAR) INSULIN (NovoLIN R) **100U/ML** PER UNIT IV ONE (13:26)
[2024-07-15] MEDS: cefTRIAXone SOD 1 GM in D5W MINI-BAG PLUS 50 ML IV ONE (13:47)
[2024-07-15] MEDS ORDERED: MAALOX 30 ML SUSP *UDC PO PRN (14:55)
[2024-07-15] MEDS ORDERED: ACETAMINOPHEN TAB 650MG DOSE (2X325MG) PO PRN (14:55)
[2024-07-15] MEDS ORDERED: MOM 30ML SUSPENSION UDC PO PRN (14:55)
[2024-07-15] MEDS ORDERED: DEXTROSE 50% 50ML SYRINGE IV PRN (15:10)
[2024-07-15] MEDS ORDERED: GLUCAGON INJ 1MG VIAL SC PRN (15:10)
[2024-07-15] MEDS ORDERED: GLUCOSE 4 GM CHEW PO PRN (15:10)
[2024-07-15] MEDS: HumuLIN R (REGULAR) INSULIN (NovoLIN R) **100U/ML** PER UNIT IV STA (15:32)
[2024-07-15] MEDS: NS 500 ML IV ONE (16:10)
[2024-07-15] MEDS: INSULIN LISPRO (NovoLOG) PER UNIT SC SCH ×2 (17:27→20:12)
[2024-07-15 20:05] VITALS: BP 128/64; TEMP 97.5
[2024-07-15] MEDS: LEVEMIR (INSULIN DETEMIR) 1 UNITS/0.01ML SC SCH (20:07)
[2024-07-15] MEDS: HEPARIN SOD (PORCINE) 5000UNITS/ML 1ML VIAL/SYRINGE SC SCH (20:08)
[2024-07-15] MEDS: oxyBUTYnin 5 MG TAB PO SCH (20:08)
[2024-07-15] MEDS: RAMELTEON 8 MG TAB (ROZEREM) PO SCH (20:08)
[2024-07-15 21:49] VITALS: BP 128/64; TEMP 97.5; O2SAT 98
[2024-07-16 05:17] VITALS: BP 108/85; TEMP 97.2
[2024-07-16 06:51] LABS: CALCIUM LEVEL 9.1 MG/DL (8.3-10.6); CREATININE FOR GFR 1.07 MG/DL (0.55-1.30); GLOMERULAR FILTRATION RATE 52.8 (>39); MAGNESIUM LEVEL 2.1 MG/DL (1.8-2.4); POTASSIUM SERUM 4.3 MMOL/L (3.5-5.1)
[2024-07-16] MEDS: ROSUVASTATIN 10 MG TAB (CRESTOR) PO SCH (08:16)
[2024-07-16 12:00] VITALS: BP 125/41; TEMP 97.8; O2SAT 100
[2024-07-16] MEDS: cefTRIAXone SOD 1 GM in D5W MINI-BAG PLUS 50 ML IV SCH (12:32)
[2024-07-16 20:29] VITALS: BP 126/44; TEMP 97.5; O2SAT 99
[2024-07-17 04:00] VITALS: BP 120/47; TEMP 97.5; O2SAT 98
[2024-07-17 06:46] LABS: CALCIUM LEVEL 9.2 MG/DL (8.3-10.6); GLOMERULAR FILTRATION RATE 57.1 (>39); POTASSIUM SERUM 4.8 MMOL/L (3.5-5.1)
[2024-07-17 12:00] VITALS: BP 116/48; TEMP 97.6; O2SAT 98
[2024-07-17 20:30] VITALS: BP 121/54; TEMP 97.9; O2SAT 97
[2024-07-18 05:27] VITALS: BP 118/54; TEMP 97.7
[2024-07-18 07:34] LABS: BLOOD UREA NITROGEN 28 MG/DL (9-23); CALCIUM LEVEL 9.3 MG/DL (8.3-10.6); CARBON DIOXIDE LEVEL 29 MMOL/L (20-31); CHLORIDE LEVEL 105 MMOL/L (98-107); CREATININE FOR GFR 0.95 MG/DL (0.55-1.30); GLOMERULAR FILTRATION RATE > 60.0 (>39); GLUCOSE, FASTING 86 MG/DL (74-106); MAGNESIUM LEVEL 2.1 MG/DL (1.8-2.4); POTASSIUM SERUM 4.4 MMOL/L (3.5-5.1); SODIUM LEVEL 138 MMOL/L (136-145)
[2024-07-18] MEDS: CEFDINIR 300 MG CAP (OMNICEF) PO SCH (08:46)
[2024-07-18] MEDS ORDERED: CEFD300CAP PO (11:14)
[2024-07-18] MEDS ORDERED: PROBCAP14 PO (11:18)
[2024-07-18 12:00] VITALS: BP 114/53; TEMP 97.9; O2SAT 95
== END 2024-07-18 18:55 | disposition home health service (06) | DRG 689 ==
LOC: M ED 10:55 → EDBD 10:55 → M ED INP 14:51 → M MS5PR 16:50
PROVIDERS: ADMIT Student in an Organized Health Care Education/Training Program; ATTEND Student in an Organized Health Care Education/Training Program
DX: N39.0 Urinary tract infection, site not specified (principal); G93.41 Metabolic encephalopathy; F03.918 Unspecified dementia, unspecified severity, with other behavioral disturbance; I44.2 Atrioventricular block, complete; I10 Essential (primary) hypertension; J44.9 Chronic obstructive pulmonary disease, unspecified; E78.5 Hyperlipidemia, unspecified; K21.9 Gastro-esophageal reflux disease without esophagitis; B96.20 Unspecified Escherichia coli [E. coli] as the cause of diseases classified elsewhere; Z79.4 Long term (current) use of insulin; E11.65 Type 2 diabetes mellitus with hyperglycemia; E11.40 Type 2 diabetes mellitus with diabetic neuropathy, unspecified; Z95.0 Presence of cardiac pacemaker; Z79.899 Other long term (current) drug therapy; Z98.41 Cataract extraction status, right eye; Z98.42 Cataract extraction status, left eye; Z87.891 Personal history of nicotine dependence; Z66 Do not resuscitate

== ENCOUNTER 2024-07-20 03:04 | Observation (INO) | payer MEDICARE, MEDICAID ==
[~2024-07-20] VITALS: Ht 154.9 cm; Wt 45.0 kg
[~2024-07-20 03:04] MED LIST changes: +PROBCAP14 PO
[2024-07-20 04:00] LABS: VENOUS BASE EXCESS 1.8 (-2.0-2.0); VENOUS HCO3 26.2 MMOL/L (23.0-27.0); VENOUS O2 SATURATION 88.1 % (60.0-80.0); VENOUS PARTIAL PRESSURE CO2 40.1 mmHg (38.0-50.0); VENOUS PARTIAL PRESSURE O2 54.6 mmHg (30.0-50.0); VENOUS PH 7.433 UNITS (7.330-7.430); VENOUS STANDARD HCO3 25.9 MMOL/L; VENOUS TOTAL CO2 27.4 MMOL/L (24.0-28.0)
[2024-07-20 04:04] LABS: BASO % 0.3 % (0.0-1.0); EOS # 0.4 10^3/uL (0.0-0.5); EOS % 2.6 % (0.0-3.0); HEMATOCRIT 31.4 % (36.0-47.0); HEMOGLOBIN 10.3 g/dl (12.0-15.5); LYMPH % 7.2 % (24.0-44.0); MEAN CORPUSCULAR HEMOGLOBIN 29.8 pg (27.0-33.0); MEAN CORPUSCULAR HGB CONC 32.8 g/dl (32.0-36.5); MEAN CORPUSCULAR VOLUME 90.8 fl (80.0-96.0); MONO # 1.1 10^3/uL (0.0-0.8); NEUTROPHILS # 11.2 10^3/uL (1.5-8.5); NEUTROPHILS % 81.5 % (36.0-66.0); PLATELET COUNT, AUTOMATED 352 10^3/uL (150-450); RED BLOOD COUNT 3.46 10^6/uL (4.00-5.40); WHITE BLOOD COUNT 13.8 10^3/uL (4.0-10.0)
[2024-07-20 04:28] LABS: ETHYL ALCOHOL (ETHANOL) < 0.003 % (0.000-0.010)
[2024-07-20 04:29] LABS: SALICYLATE LEVEL < 3.0 MG/DL (<30)
[2024-07-20 04:30] LABS: ALBUMIN 2.8 G/DL (3.2-5.2); ALKALINE PHOSPHATASE 87 U/L (46-116); ALT/SGPT 23 U/L (7.0-40); AST/SGOT 25 U/L (<34); BILIRUBIN,DIRECT 0.2 MG/DL (<0.4); BILIRUBIN,TOTAL 0.6 MG/DL (0.3-1.2); BLOOD UREA NITROGEN 22 MG/DL (9-23); CALCIUM LEVEL 8.5 MG/DL (8.3-10.6); CARBON DIOXIDE LEVEL 26 MMOL/L (20-31); CHLORIDE LEVEL 103 MMOL/L (98-107); CK-MB VALUE MASS < 1.0 NG/ML (<3.6); CPK CREATINE PHOSPHOKINASE 65 U/L (34-145); CREATININE FOR GFR 0.79 MG/DL (0.55-1.30); GLOMERULAR FILTRATION RATE > 60.0 (>39); GLUCOSE, FASTING 283 MG/DL (74-106); MB/CK RELATIVE INDEX 1.53 (< OR =4); POTASSIUM SERUM 4.2 MMOL/L (3.5-5.1); SODIUM LEVEL 134 MMOL/L (136-145); TOTAL PROTEIN 6.2 G/DL (5.7-8.2)
[2024-07-20 04:33] LABS: THYROID STIMULATING HORMONE 2.097 uIU/ML (0.55-4.78)
[2024-07-20 04:54] LABS: OSMOLALITY SERUM 292 MOSM/KG (280-301)
[2024-07-20] MEDS: NS 1,000 ML IV ONE (05:26)
[2024-07-20 06:56] LABS: CK-MB VALUE MASS < 1.0 NG/ML (<3.6)
[2024-07-20 06:59] LABS: CPK CREATINE PHOSPHOKINASE 82 U/L (34-145); MB/CK RELATIVE INDEX 1.21 (< OR =4)
[2024-07-20] MEDS: cefTRIAXone SOD 2 GM in D5W MINI-BAG PLUS 50 ML IV ONE (08:44)
[2024-07-20] MEDS ORDERED: CEFD1CAP9 PO (09:07)
[2024-07-20] MEDS ORDERED: PROBCAP14 PO (09:07)
[2024-07-20] MEDS ORDERED: HOME MED LIST COMPLETE! XX SCH (09:10)
[2024-07-20] MEDS ORDERED: DEXTROSE 50% 50ML SYRINGE IV PRN (11:30)
[2024-07-20] MEDS ORDERED: GLUCOSE 4 GM CHEW PO PRN (11:30)
[2024-07-20] MEDS ORDERED: GLUCAGON INJ 1MG VIAL SC PRN (11:30)
[2024-07-20] MEDS: amLODIPine 5 MG TAB PO SCH (12:54)
[2024-07-20] MEDS: ROSUVASTATIN 10 MG TAB (CRESTOR) PO SCH (12:54)
[2024-07-20] MEDS: oxyBUTYnin 5 MG TAB PO SCH (12:54)
[2024-07-20] MEDS: **hydrALAZINE** 10 MG TAB PO ONE (12:55)
[2024-07-20] MEDS: INSULIN LISPRO (NovoLOG) PER UNIT SC SCH ×2 (14:03→21:00)
[2024-07-20 15:09] LABS: LIPASE 208 U/L (12-53)
[2024-07-20 15:11] LABS: AMYLASE 96 U/L (30-118)
[2024-07-20] MEDS: LACTOBACILLUS ACIDOPHILUS CAP (BACID) PO SCH (17:49)
[2024-07-20] MEDS: PANTOPRAZOLE 40MG VIAL IV SCH (18:40)
[2024-07-20 19:45] VITALS: BP 100/37; TEMP 98.1; O2SAT 98
[2024-07-20] MEDS: BISACODYL 10MG SUPP PR SCH (22:02)
[2024-07-20] MEDS: FLEET ENEMA PR SCH (22:02)
[2024-07-20] MEDS: LEVEMIR (INSULIN DETEMIR) 1 UNITS/0.01ML SC SCH (22:03)
[2024-07-21 04:59] VITALS: BP 128/49; TEMP 97.5; O2SAT 98
[2024-07-21 06:30] LABS: BASO # 0.1 10^3/uL (0.0-0.2); BASO % 0.4 % (0.0-1.0); EOS # 0.5 10^3/uL (0.0-0.5); EOS % 4.2 % (0.0-3.0); HEMOGLOBIN 9.8 g/dl (12.0-15.5); LYMPH # 1.7 10^3/uL (1.5-5.0); LYMPH % 14.6 % (24.0-44.0); MEAN CORPUSCULAR HEMOGLOBIN 29.6 pg (27.0-33.0); MEAN CORPUSCULAR HGB CONC 32.7 g/dl (32.0-36.5); MEAN CORPUSCULAR VOLUME 90.6 fl (80.0-96.0); MONO # 1.2 10^3/uL (0.0-0.8); MONO % 10.5 % (2.0-8.0); NEUTROPHILS # 7.9 10^3/uL (1.5-8.5); NEUTROPHILS % 69.8 % (36.0-66.0); PLATELET COUNT, AUTOMATED 373 10^3/uL (150-450); RED BLOOD COUNT 3.31 10^6/uL (4.00-5.40); WHITE BLOOD COUNT 11.3 10^3/uL (4.0-10.0)
[2024-07-21 06:53] LABS: BLOOD UREA NITROGEN 17 MG/DL (9-23); CALCIUM LEVEL 9.6 MG/DL (8.3-10.6); CARBON DIOXIDE LEVEL 29 MMOL/L (20-31); CHLORIDE LEVEL 105 MMOL/L (98-107); CREATININE FOR GFR 0.88 MG/DL (0.55-1.30); GLOMERULAR FILTRATION RATE > 60.0 (>39); GLUCOSE, FASTING 51 MG/DL (74-106); MAGNESIUM LEVEL 1.9 MG/DL (1.8-2.4); POTASSIUM SERUM 3.9 MMOL/L (3.5-5.1); SODIUM LEVEL 139 MMOL/L (136-145)
[2024-07-21] MEDS ORDERED: ENOXAPARIN 40MG/0.4ML SYRINGE (J1650 PER 10MG) SC SCH (09:00)
[2024-07-21] MEDS: PANTOPRAZOLE 40MG VIAL IV SCH (09:39)
[2024-07-21] MEDS: SUCRALFATE SUSP 1GM/10ML UD PO SCH (09:40)
[2024-07-21] MEDS: ENOXAPARIN 30MG/0.3ML SYRINGE (J1650 PER 10MG) SC SCH (09:40)
[2024-07-21] MEDS: DOCUSATE SODIUM 100MG CAPSULE PO SCH (09:40)
[2024-07-21 09:43] VITALS: BP 118/54
[2024-07-21 12:00] VITALS: BP 142/61; TEMP 97.7; O2SAT 98
[2024-07-21] MEDS ORDERED: AMLO1TAB24 PO (12:49)
[2024-07-21] MEDS ORDERED: COLA100C5 PO (12:49)
[2024-07-21] MEDS ORDERED: PANT40TA29 PO (12:49)
[2024-07-21] MEDS ORDERED: SUCR1SS PO (12:49)
== END 2024-07-21 18:25 | disposition home health service (06) ==
LOC: M ED 03:04 → M ED INP 03:05 → M MS5PR 12:20
PROVIDERS: ADMIT Internal Medicine; ATTEND Internal Medicine
DX: D72.829 Elevated white blood cell count, unspecified (principal); R11.2 Nausea with vomiting, unspecified; K56.41 Fecal impaction; K20.90 Esophagitis, unspecified without bleeding; I24.89 Other forms of acute ischemic heart disease; G31.84 Mild cognitive impairment of uncertain or unknown etiology; F03.90 Unspecified dementia, unspecified severity, without behavioral disturbance, psychotic disturbance, mood disturbance, and anxiety; E11.65 Type 2 diabetes mellitus with hyperglycemia; I16.0 Hypertensive urgency; J44.9 Chronic obstructive pulmonary disease, unspecified; Z95.0 Presence of cardiac pacemaker; Z88.1 Allergy status to other antibiotic agents; Z79.899 Other long term (current) drug therapy
CPT/HCPCS: 36415; 70450; 71045; 74176; 80048; 80076; 80143; 81001; 82077; 82140; 82150; 82550; 82553; 82803; 83605; 83690; 83735; 83930; 84145; 84443; 84484; 85025; 87040; 87486; 87581; 87633; 87798; 92610; 93005; 93041; 94760; 96365; 96372; 96375; 96376; 99285; G0378; J0696; J1650; J1815; J2470

== ENCOUNTER 2024-08-13 11:42 | Emergency (ER) | payer MEDICARE, MEDICAID ==
[~2024-08-13] VITALS: Ht 152.4 cm; Wt 45.0 kg
[~2024-08-13 11:42] MED LIST changes: +AMLO1TAB24 PO; +COLA100C5 PO; +PANT40TA29 PO; -ROSU20TA61 PO; +ROSU20TA86 PO; +SUCR1SS PO
[2024-08-13] MEDS: NS 1,000 ML IV ONE (11:50)
[2024-08-13 11:54] VITALS: TEMP 97.3
[2024-08-13 12:40] LABS: VENOUS BASE EXCESS 3.6 (-2.0-2.0); VENOUS HCO3 28.3 MMOL/L (23.0-27.0); VENOUS O2 SATURATION 82.9 % (60.0-80.0); VENOUS PARTIAL PRESSURE CO2 42.9 mmHg (38.0-50.0); VENOUS PARTIAL PRESSURE O2 44.8 mmHg (30.0-50.0); VENOUS PH 7.437 UNITS (7.330-7.430); VENOUS STANDARD HCO3 27.4 MMOL/L; VENOUS TOTAL CO2 29.6 MMOL/L (24.0-28.0)
[2024-08-13 12:45] LABS: BASO # 0.1 10^3/uL (0.0-0.2); BASO % 0.7 % (0.0-1.0); EOS # 0.6 10^3/uL (0.0-0.5); EOS % 5.8 % (0.0-3.0); HEMATOCRIT 35.5 % (36.0-47.0); HEMOGLOBIN 11.7 g/dl (12.0-15.5); LYMPH # 1.4 10^3/uL (1.5-5.0); LYMPH % 14.6 % (24.0-44.0); MEAN CORPUSCULAR HEMOGLOBIN 29.5 pg (27.0-33.0); MEAN CORPUSCULAR VOLUME 89.6 fl (80.0-96.0); MONO # 0.9 10^3/uL (0.0-0.8); MONO % 8.8 % (2.0-8.0); NEUTROPHILS # 6.8 10^3/uL (1.5-8.5); NEUTROPHILS % 69.7 % (36.0-66.0); PLATELET COUNT, AUTOMATED 346 10^3/uL (150-450); RED BLOOD COUNT 3.96 10^6/uL (4.00-5.40); WHITE BLOOD COUNT 9.8 10^3/uL (4.0-10.0)
[2024-08-13 13:04] LABS: OSMOLALITY SERUM 315 MOSM/KG (280-301)
[2024-08-13 13:06] LABS: LIPASE 141 U/L (12-53)
[2024-08-13 13:08] LABS: ALBUMIN 3.1 G/DL (3.2-5.2); ALKALINE PHOSPHATASE 111 U/L (46-116); ALT/SGPT 11 U/L (7.0-40); AST/SGOT 18 U/L (<34); BILIRUBIN,DIRECT 0.1 MG/DL (<0.4); BILIRUBIN,TOTAL 0.5 MG/DL (0.3-1.2); TOTAL PROTEIN 7.3 G/DL (5.7-8.2)
[2024-08-13 13:09] LABS: ACETONE/KETONE 0.23 MMOL/L (0.02-0.27)
[2024-08-13 13:34] LABS: HEMOGLOBIN A1c 12.7 % (4.0-6.0)
[2024-08-13 13:54] LABS: BLOOD UREA NITROGEN 29 MG/DL (9-23); CARBON DIOXIDE LEVEL 26 MMOL/L (20-31); CHLORIDE LEVEL 100 MMOL/L (98-107); CREATININE FOR GFR 0.73 MG/DL (0.55-1.30); GLOMERULAR FILTRATION RATE > 60.0 (>39); GLUCOSE, FASTING 383 MG/DL (74-106); POTASSIUM SERUM 4.7 MMOL/L (3.5-5.1); SODIUM LEVEL 132 MMOL/L (136-145)
[2024-08-13] MEDS: HumuLIN R (REGULAR) INSULIN (NovoLIN R) **100U/ML** PER UNIT IV ONE (14:00)
[2024-08-13 14:50] VITALS: BP 170/76; O2SAT 99
== END 2024-08-13 16:20 | disposition home or self-care (01) ==
LOC: M ED 11:42 → EDBD 11:42 → M ED 16:20
DX: E11.65 Type 2 diabetes mellitus with hyperglycemia (principal); Z76.0 Encounter for issue of repeat prescription; J44.9 Chronic obstructive pulmonary disease, unspecified; K21.9 Gastro-esophageal reflux disease without esophagitis; Z88.8 Allergy status to other drugs, medicaments and biological substances; Z79.4 Long term (current) use of insulin; Z79.899 Other long term (current) drug therapy
CPT/HCPCS: 80047; 80053; 80076; 82010; 82803; 83036; 83690; 83930; 85025; 93041; 94760; 96374; 99284; J1815

== ENCOUNTER 2024-08-15 15:33 | Emergency (ER) | payer MEDICARE, MEDICAID ==
[~2024-08-15] VITALS: Ht 160 cm; Wt 43.7 kg
[2024-08-15 17:02] LABS: VENOUS BASE EXCESS 1.3 (-2.0-2.0); VENOUS HCO3 27.4 MMOL/L (23.0-27.0); VENOUS O2 SATURATION 51.2 % (60.0-80.0); VENOUS PARTIAL PRESSURE CO2 49.9 mmHg (38.0-50.0); VENOUS PARTIAL PRESSURE O2 27.9 mmHg (30.0-50.0); VENOUS PH 7.358 UNITS (7.330-7.430); VENOUS STANDARD HCO3 24.6 MMOL/L
[2024-08-15 17:09] LABS: BASO # 0.1 10^3/uL (0.0-0.2); BASO % 0.6 % (0.0-1.0); EOS # 0.2 10^3/uL (0.0-0.5); EOS % 1.7 % (0.0-3.0); HEMATOCRIT 34.5 % (36.0-47.0); HEMOGLOBIN 11.4 g/dl (12.0-15.5); LYMPH # 0.9 10^3/uL (1.5-5.0); LYMPH % 8.9 % (24.0-44.0); MEAN CORPUSCULAR HEMOGLOBIN 29.4 pg (27.0-33.0); MEAN CORPUSCULAR VOLUME 88.9 fl (80.0-96.0); MONO # 0.6 10^3/uL (0.0-0.8); NEUTROPHILS % 82.5 % (36.0-66.0); PLATELET COUNT, AUTOMATED 349 10^3/uL (150-450); RED BLOOD COUNT 3.88 10^6/uL (4.00-5.40); WHITE BLOOD COUNT 9.7 10^3/uL (4.0-10.0)
[2024-08-15 17:18] LABS: HEMOGLOBIN A1c 12.9 % (4.0-6.0)
[2024-08-15 17:40] LABS: LIPASE 46 U/L (12-53)
[2024-08-15 17:42] LABS: ACETONE/KETONE 0.11 MMOL/L (0.02-0.27)
[2024-08-15 17:48] LABS: ALBUMIN 3.2 G/DL (3.2-5.2); ALKALINE PHOSPHATASE 114 U/L (46-116); ALT/SGPT 11 U/L (7.0-40); AST/SGOT 14 U/L (<34); BILIRUBIN,DIRECT 0.1 MG/DL (<0.4); BILIRUBIN,TOTAL 0.5 MG/DL (0.3-1.2); BLOOD UREA NITROGEN 32 MG/DL (9-23); CALCIUM LEVEL 9.9 MG/DL (8.3-10.6); CARBON DIOXIDE LEVEL 28 MMOL/L (20-31); CHLORIDE LEVEL 95 MMOL/L (98-107); CREATININE FOR GFR 0.91 MG/DL (0.55-1.30); GLOMERULAR FILTRATION RATE > 60.0 (>39); GLUCOSE, FASTING 512 MG/DL (74-106); POTASSIUM SERUM 4.6 MMOL/L (3.5-5.1); SODIUM LEVEL 127 MMOL/L (136-145); TOTAL PROTEIN 7.3 G/DL (5.7-8.2)
[2024-08-15 17:49] LABS: OSMOLALITY SERUM 307 MOSM/KG (280-301)
[2024-08-15] MEDS: HumuLIN R (REGULAR) INSULIN (NovoLIN R) **100U/ML** PER UNIT IV ONE (18:41)
[2024-08-15 20:17] VITALS: BP 143/62; TEMP 97.5; O2SAT 98
== END 2024-08-15 20:28 | disposition home or self-care (01) ==
LOC: M ED 15:33 → EDBD 15:33 → M ED 20:28
DX: E11.65 Type 2 diabetes mellitus with hyperglycemia (principal); I10 Essential (primary) hypertension; E78.5 Hyperlipidemia, unspecified; J44.9 Chronic obstructive pulmonary disease, unspecified; Z88.8 Allergy status to other drugs, medicaments and biological substances; Z79.4 Long term (current) use of insulin; Z79.899 Other long term (current) drug therapy
CPT/HCPCS: 80048; 80076; 81000; 81015; 82010; 82803; 83036; 83690; 83930; 85025; 87088; 87186; 93005; 96374; 99285; J1815

== ENCOUNTER 2024-08-19 00:38 | Emergency (ER) | payer MEDICAID, MEDICARE ==
[~2024-08-19] VITALS: Ht 157.5 cm; Wt 47.6 kg
[2024-08-19 07:24] VITALS: BP 131/73; TEMP 97; O2SAT 96
== END 2024-08-19 07:26 | disposition home or self-care (01) ==
LOC: M ED 00:38
DX: J02.9 Acute pharyngitis, unspecified (principal); Z79.899 Other long term (current) drug therapy

== ENCOUNTER 2024-10-27 10:32 | Emergency (ER) | payer MEDICARE, MEDICAID ==
[2024-10-27 11:15] LABS: BASO # 0.1 10^3/uL (0.0-0.2); BASO % 0.7 % (0.0-1.0); EOS # 0.8 10^3/uL (0.0-0.5); EOS % 7.1 % (0.0-3.0); HEMATOCRIT 34.2 % (36.0-47.0); HEMOGLOBIN 10.9 g/dl (12.0-15.5); LYMPH # 1.2 10^3/uL (1.5-5.0); LYMPH % 11.8 % (24.0-44.0); MEAN CORPUSCULAR HEMOGLOBIN 27.7 pg (27.0-33.0); MEAN CORPUSCULAR HGB CONC 31.9 g/dl (32.0-36.5); MEAN CORPUSCULAR VOLUME 86.8 fl (80.0-96.0); MONO # 0.9 10^3/uL (0.0-0.8); MONO % 8.7 % (2.0-8.0); NEUTROPHILS # 7.5 10^3/uL (1.5-8.5); NEUTROPHILS % 71.5 % (36.0-66.0); PLATELET COUNT, AUTOMATED 434 10^3/uL (150-450); RED BLOOD COUNT 3.94 10^6/uL (4.00-5.40); WHITE BLOOD COUNT 10.5 10^3/uL (4.0-10.0)
[2024-10-27 11:45] LABS: CK-MB VALUE MASS < 1.0 NG/ML (<3.6)
[2024-10-27 11:47] LABS: ALBUMIN 2.9 G/DL (3.2-5.2); ALKALINE PHOSPHATASE 98 U/L (35-104); ALT/SGPT 14 U/L (7.0-40); AST/SGOT 16 U/L (<34); BILIRUBIN,DIRECT 0.2 MG/DL (<0.4); BILIRUBIN,TOTAL 0.6 MG/DL (0.3-1.2); BLOOD UREA NITROGEN 35 MG/DL (9-23); CALCIUM LEVEL 10.5 MG/DL (8.3-10.6); CARBON DIOXIDE LEVEL 28 MMOL/L (20-31); CHLORIDE LEVEL 104 MMOL/L (98-107); CREATININE FOR GFR 0.88 MG/DL (0.55-1.30); GLOMERULAR FILTRATION RATE > 60.0 (>39); GLUCOSE, FASTING 297 MG/DL (74-106); POTASSIUM SERUM 4.7 MMOL/L (3.5-5.1); SODIUM LEVEL 139 MMOL/L (136-145); TOTAL PROTEIN 7.5 G/DL (5.7-8.2)
[2024-10-27 11:51] LABS: CPK CREATINE PHOSPHOKINASE 45 U/L (34-145); MB/CK RELATIVE INDEX 2.22 (< OR =4)
[2024-10-27 13:25] LABS: CK-MB VALUE MASS < 1.0 NG/ML (<3.6)
[2024-10-27 13:39] LABS: CPK CREATINE PHOSPHOKINASE 47 U/L (34-145); MB/CK RELATIVE INDEX 2.12 (< OR =4)
[2024-10-27] MEDS ORDERED: CEFD1CAP9 PO (14:11)
[2024-10-27 15:02] VITALS: BP 152/79; TEMP 96.7; O2SAT 99
== END 2024-10-27 15:15 | disposition home or self-care (01) ==
LOC: EDBD 10:32 → M ED 10:32
DX: N39.0 Urinary tract infection, site not specified (principal); F03.90 Unspecified dementia, unspecified severity, without behavioral disturbance, psychotic disturbance, mood disturbance, and anxiety; E11.9 Type 2 diabetes mellitus without complications; I10 Essential (primary) hypertension; K21.9 Gastro-esophageal reflux disease without esophagitis; Z88.1 Allergy status to other antibiotic agents; Z95.0 Presence of cardiac pacemaker; R94.31 Abnormal electrocardiogram [ECG] [EKG]

== ENCOUNTER 2024-11-13 20:09 | Emergency (ER) | payer MEDICARE, MEDICAID ==
[~2024-11-13] VITALS: Ht 157.5 cm; Wt 47.6 kg
[2024-11-13 21:18] LABS: HEMATOCRIT 32.6 % (36.0-47.0); HEMOGLOBIN 10.5 g/dl (12.0-15.5); MEAN CORPUSCULAR HEMOGLOBIN 27.8 pg (27.0-33.0); MEAN CORPUSCULAR HGB CONC 32.2 g/dl (32.0-36.5); MEAN CORPUSCULAR VOLUME 86.2 fl (80.0-96.0); PLATELET COUNT, AUTOMATED 346 10^3/uL (150-450); RED BLOOD COUNT 3.78 10^6/uL (4.00-5.40)
[2024-11-13] MEDS ORDERED: HOME MED LIST COMPLETE! XX SCH (21:40)
[2024-11-13 21:45] LABS: ETHYL ALCOHOL (ETHANOL) < 0.003 % (0.000-0.010)
[2024-11-13 21:47] LABS: ALBUMIN 2.8 G/DL (3.2-5.2); ALKALINE PHOSPHATASE 97 U/L (35-104); ALT/SGPT 10 U/L (7.0-40); AST/SGOT 18 U/L (<34); BILIRUBIN,DIRECT 0.1 MG/DL (<0.4); BILIRUBIN,TOTAL 0.4 MG/DL (0.3-1.2); BLOOD UREA NITROGEN 35 MG/DL (9-23); CALCIUM LEVEL 9.8 MG/DL (8.3-10.6); CARBON DIOXIDE LEVEL 29 MMOL/L (20-31); CHLORIDE LEVEL 100 MMOL/L (98-107); CREATININE FOR GFR 1.06 MG/DL (0.55-1.30); GLOMERULAR FILTRATION RATE 53.2 (>39); GLUCOSE, FASTING 239 MG/DL (74-106); SALICYLATE LEVEL < 3.0 MG/DL (<30); SODIUM LEVEL 136 MMOL/L (136-145); TOTAL PROTEIN 7.7 G/DL (5.7-8.2)
[2024-11-13 21:51] LABS: THYROID STIMULATING HORMONE 2.357 uIU/ML (0.55-4.78)
[2024-11-13 22:36] LABS: KETONE, URINE AUTO RFX NEGATIVE (NEGATIVE); LEUKOCYTE ESTERASE UR AUTO RFX NEGATIVE (NEGATIVE); MUCUS, URINE RFX SMALL (NEGATIVE); NITRITE, URINE AUTO RFX NEGATIVE (NEGATIVE); RBC, URINE AUTO RFX 4 /HPF (0-3); SQUAM EPITHELIAL CELL UR AURFX 0 /HPF (0-6); WBC, URINE AUTO RFX 1 /HPF (0-3)
[2024-11-14] MEDS ORDERED: GLUCAGON INJ 1MG VIAL SC PRN (03:55)
[2024-11-14] MEDS ORDERED: DEXTROSE 50% 50ML SYRINGE IV PRN (03:55)
[2024-11-14] MEDS ORDERED: GLUCOSE 4 GM CHEW PO PRN (03:55)
[2024-11-14] MEDS: D5W/LR 1,000 ML IV SCH (04:53)
[2024-11-14] MEDS: NS 500 ML IV ONE (04:54)
[2024-11-14] MEDS: PANTOPRAZOLE 40MG VIAL IV ONE (05:01)
[2024-11-14 06:01] VITALS: TEMP 98.1
[2024-11-14] MEDS: INSULIN LISPRO (NovoLOG) PER UNIT SC SCH (07:30)
[2024-11-14 09:00] VITALS: BP 146/65
[2024-11-14] MEDS: LEVEMIR (INSULIN DETEMIR) 1 UNITS/0.01ML SC SCH (09:00)
[2024-11-14] MEDS: ROSUVASTATIN 10 MG TAB (CRESTOR) PO SCH (09:00)
[2024-11-14] MEDS: amLODIPine 5 MG TAB PO SCH (09:00)
[2024-11-14] MEDS: oxyBUTYnin 5 MG TAB PO SCH (09:00)
[2024-11-14] MEDS: MEMANTINE 5MG TABLET (NAMENDA) PO SCH (09:00)
[2024-11-14 10:16] VITALS: O2SAT 96
[2024-11-14 13:05] LABS: BLOOD UREA NITROGEN 29 MG/DL (9-23); CALCIUM LEVEL 10.3 MG/DL (8.3-10.6); CARBON DIOXIDE LEVEL 27 MMOL/L (20-31); CHLORIDE LEVEL 101 MMOL/L (98-107); CREATININE FOR GFR 0.89 MG/DL (0.55-1.30); GLOMERULAR FILTRATION RATE > 60.0 (>39); GLUCOSE, FASTING 235 MG/DL (74-106); POTASSIUM SERUM 4.4 MMOL/L (3.5-5.1); SODIUM LEVEL 135 MMOL/L (136-145)
[2024-11-14] MEDS ORDERED: SERO1TAB3 PO (16:23)
== END 2024-11-14 16:34 | disposition home or self-care (01) ==
LOC: M ED 20:09
DX: F43.0 Acute stress reaction (principal); F23 Brief psychotic disorder; F03.90 Unspecified dementia, unspecified severity, without behavioral disturbance, psychotic disturbance, mood disturbance, and anxiety; R45.850 Homicidal ideations; F32.A Depression, unspecified; I44.0 Atrioventricular block, first degree; I45.10 Unspecified right bundle-branch block; I45.81 Long QT syndrome; J44.9 Chronic obstructive pulmonary disease, unspecified; E11.9 Type 2 diabetes mellitus without complications; I10 Essential (primary) hypertension; E78.5 Hyperlipidemia, unspecified; K21.9 Gastro-esophageal reflux disease without esophagitis; F17.200 Nicotine dependence, unspecified, uncomplicated; F19.10 Other psychoactive substance abuse, uncomplicated; F10.10 Alcohol abuse, uncomplicated; Z86.718 Personal history of other venous thrombosis and embolism; Z88.8 Allergy status to other drugs, medicaments and biological substances; Z79.4 Long term (current) use of insulin; Z79.899 Other long term (current) drug therapy
CPT/HCPCS: 36415; 80048; 80076; 80143; 81001; 82077; 84443; 85027; 93005; 96374; 96375; 97161; 97530; 99285; J1815; J2470

== ENCOUNTER 2024-11-18 20:01 | Inpatient (IN) | payer MEDICARE, MEDICAID ==
[~2024-11-18] VITALS: Ht 152.4 cm; Wt 45.3 kg
[~2024-11-18 20:01] MED LIST changes: +SERO1TAB3 PO
[2024-11-18 20:47] LABS: BASO # 0.1 10^3/uL (0.0-0.2); BASO % 0.6 % (0.0-1.0); EOS # 0.6 10^3/uL (0.0-0.5); EOS % 6.2 % (0.0-3.0); HEMATOCRIT 32.2 % (36.0-47.0); HEMOGLOBIN 10.5 g/dl (12.0-15.5); LYMPH # 1.1 10^3/uL (1.5-5.0); LYMPH % 11.8 % (24.0-44.0); MEAN CORPUSCULAR HGB CONC 32.6 g/dl (32.0-36.5); MEAN CORPUSCULAR VOLUME 85.9 fl (80.0-96.0); MONO # 0.9 10^3/uL (0.0-0.8); NEUTROPHILS # 6.8 10^3/uL (1.5-8.5); NEUTROPHILS % 72.1 % (36.0-66.0); PLATELET COUNT, AUTOMATED 330 10^3/uL (150-450); RED BLOOD COUNT 3.75 10^6/uL (4.00-5.40); WHITE BLOOD COUNT 9.5 10^3/uL (4.0-10.0)
[2024-11-18 21:26] LABS: ALKALINE PHOSPHATASE 98 U/L (35-104); ALT/SGPT 11 U/L (7.0-40); AST/SGOT 16 U/L (<34); BILIRUBIN,TOTAL 0.4 MG/DL (0.3-1.2); BLOOD UREA NITROGEN 23 MG/DL (9-23); CALCIUM LEVEL 9.6 MG/DL (8.3-10.6); CARBON DIOXIDE LEVEL 30 MMOL/L (20-31); CHLORIDE LEVEL 99 MMOL/L (98-107); CREATININE FOR GFR 0.95 MG/DL (0.55-1.30); GLOMERULAR FILTRATION RATE > 60.0 (>39); GLUCOSE, FASTING 402 MG/DL (74-106); POTASSIUM SERUM 4.8 MMOL/L (3.5-5.1); SODIUM LEVEL 136 MMOL/L (136-145); TOTAL PROTEIN 7.6 G/DL (5.7-8.2)
[2024-11-18] MEDS: MIDAZOLAM INJ 2MG/2ML VIAL IV STA (23:00)
[2024-11-18 23:29] LABS: KETONE, URINE AUTO RFX NEGATIVE (NEGATIVE); LEUKOCYTE ESTERASE UR AUTO RFX NEGATIVE (NEGATIVE); NITRITE, URINE AUTO RFX NEGATIVE (NEGATIVE); RBC, URINE AUTO RFX 3 /HPF (0-3); SQUAM EPITHELIAL CELL UR AURFX 0 /HPF (0-6); WBC, URINE AUTO RFX 0 /HPF (0-3)
[2024-11-19] MEDS: HALOPERIDOL LACTATE 5MG/ML VIAL IM STA (00:09)
[2024-11-19] MEDS: LORazepam 2 MG/ML 1ML VIAL IV STA (00:38)
[2024-11-19] MEDS ORDERED: GLUCAGON INJ 1MG VIAL SC PRN (02:30)
[2024-11-19] MEDS ORDERED: GLUCOSE 4 GM CHEW PO PRN (02:30)
[2024-11-19] MEDS ORDERED: HOME MED LIST COMPLETE! XX SCH (03:50)
[2024-11-19] MEDS: INSULIN LISPRO (NovoLOG) PER UNIT SC SCH (07:30)
[2024-11-19] MEDS: LEVEMIR (INSULIN DETEMIR) 1 UNITS/0.01ML SC SCH (09:00)
[2024-11-19] MEDS: oxyBUTYnin 5 MG TAB PO SCH (12:52)
[2024-11-19] MEDS: ROSUVASTATIN 10 MG TAB (CRESTOR) PO SCH (12:53)
[2024-11-19] MEDS: QUEtiapine FUMARATE 25 MG TAB PO SCH ×2 (15:28→21:58)
[2024-11-19] MEDS ORDERED: INSULIN LISPRO (NovoLOG) PER UNIT SC SCH (21:00)
[2024-11-20] MEDS: OLANZapine INTRAMUSCULAR 10MG VIAL IM PRN (05:49)
[2024-11-20 07:53] LABS: BASO # 0.1 10^3/uL (0.0-0.2); BASO % 0.6 % (0.0-1.0); EOS # 0.8 10^3/uL (0.0-0.5); EOS % 7.4 % (0.0-3.0); HEMATOCRIT 34.1 % (36.0-47.0); HEMOGLOBIN 10.8 g/dl (12.0-15.5); LYMPH # 1.4 10^3/uL (1.5-5.0); LYMPH % 12.5 % (24.0-44.0); MEAN CORPUSCULAR HEMOGLOBIN 27.3 pg (27.0-33.0); MEAN CORPUSCULAR HGB CONC 31.7 g/dl (32.0-36.5); MEAN CORPUSCULAR VOLUME 86.3 fl (80.0-96.0); MONO # 0.9 10^3/uL (0.0-0.8); MONO % 8.6 % (2.0-8.0); NEUTROPHILS # 7.7 10^3/uL (1.5-8.5); NEUTROPHILS % 70.5 % (36.0-66.0); PLATELET COUNT, AUTOMATED 347 10^3/uL (150-450); RED BLOOD COUNT 3.95 10^6/uL (4.00-5.40); WHITE BLOOD COUNT 10.9 10^3/uL (4.0-10.0)
[2024-11-20] MEDS: INSULIN LISPRO (NovoLOG) PER UNIT SC SCH (08:01)
[2024-11-20] MEDS: LEVEMIR (INSULIN DETEMIR) 1 UNITS/0.01ML SC SCH ×2 (08:02→10:05)
[2024-11-20] MEDS: DEXTROSE 50% 50ML SYRINGE IV PRN (08:05)
[2024-11-20 08:23] LABS: BLOOD UREA NITROGEN 21 MG/DL (9-23); CALCIUM LEVEL 10.3 MG/DL (8.3-10.6); CARBON DIOXIDE LEVEL 29 MMOL/L (20-31); CHLORIDE LEVEL 106 MMOL/L (98-107); CREATININE FOR GFR 0.84 MG/DL (0.55-1.30); GLOMERULAR FILTRATION RATE > 60.0 (>39); GLUCOSE, FASTING 65 MG/DL (74-106); POTASSIUM SERUM 4.2 MMOL/L (3.5-5.1); SODIUM LEVEL 142 MMOL/L (136-145)
[2024-11-20] MEDS: D5W 1,000 ML IV SCH (10:02)
[2024-11-20 15:00] VITALS: BP 136/56; TEMP 97.7; O2SAT 97
[2024-11-20 20:05] VITALS: BP 124/71; TEMP 97.7
[2024-11-21 04:15] VITALS: BP 127/72; TEMP 97.7
[2024-11-21 12:00] VITALS: BP 115/47; TEMP 97.5
[2024-11-21 20:39] VITALS: BP 142/62; TEMP 97.6
[2024-11-21] MEDS: INSULIN LISPRO (NovoLOG) PER UNIT SC ONE (20:57)
[2024-11-22] MEDS: ACETAMINOPHEN 325 MG TAB PO PRN (01:03)
[2024-11-22 03:35] VITALS: BP 102/60; TEMP 97.5
[2024-11-22 12:05] VITALS: BP 127/57; TEMP 96.6; O2SAT 99
[2024-11-22] MEDS ORDERED: BASA100I SC (13:36)
[2024-11-22] MEDS ORDERED: QUET1TAB17 PO (13:36)
== END 2024-11-22 20:20 | disposition home or self-care (01) | DRG 884 ==
LOC: M ED 20:01 → M ED INP 11-20 09:32 → M MS5PR 11-20 14:44
PROVIDERS: ADMIT Internal Medicine Nephrology; ATTEND Student in an Organized Health Care Education/Training Program
DX: F03.918 Unspecified dementia, unspecified severity, with other behavioral disturbance (principal); E11.649 Type 2 diabetes mellitus with hypoglycemia without coma; J44.9 Chronic obstructive pulmonary disease, unspecified; E11.40 Type 2 diabetes mellitus with diabetic neuropathy, unspecified; I10 Essential (primary) hypertension; M81.0 Age-related osteoporosis without current pathological fracture; E78.5 Hyperlipidemia, unspecified; Z95.0 Presence of cardiac pacemaker; K21.9 Gastro-esophageal reflux disease without esophagitis; Z79.4 Long term (current) use of insulin; Z98.41 Cataract extraction status, right eye; Z98.42 Cataract extraction status, left eye; Z85.828 Personal history of other malignant neoplasm of skin; Z87.891 Personal history of nicotine dependence

== ENCOUNTER 2024-12-17 19:29 | Emergency (ER) | payer MEDICARE, MEDICAID ==
[~2024-12-17] VITALS: Ht 154.9 cm; Wt 44.6 kg
[~2024-12-17 19:29] MED LIST changes: +QUET1TAB17 PO
[2024-12-17 21:19] LABS: BASO # 0.1 10^3/uL (0.0-0.2); BASO % 0.6 % (0.0-1.0); EOS # 0.5 10^3/uL (0.0-0.5); EOS % 3.5 % (0.0-3.0); HEMOGLOBIN 9.5 g/dl (12.0-15.5); LYMPH # 0.9 10^3/uL (1.5-5.0); LYMPH % 5.9 % (24.0-44.0); MEAN CORPUSCULAR HEMOGLOBIN 27.2 pg (27.0-33.0); MEAN CORPUSCULAR HGB CONC 31.7 g/dl (32.0-36.5); NEUTROPHILS # 11.9 10^3/uL (1.5-8.5); NEUTROPHILS % 82.7 % (36.0-66.0); PLATELET COUNT, AUTOMATED 459 10^3/uL (150-450); RED BLOOD COUNT 3.49 10^6/uL (4.00-5.40); WHITE BLOOD COUNT 14.4 10^3/uL (4.0-10.0)
[2024-12-17 21:36] LABS: ALBUMIN 2.3 G/DL (3.2-5.2); ALKALINE PHOSPHATASE 114 U/L (35-104); ALT/SGPT 12 U/L (7.0-40); AST/SGOT 13 U/L (<34); BILIRUBIN,DIRECT < 0.1 MG/DL (<0.4); BILIRUBIN,TOTAL 0.4 MG/DL (0.3-1.2); BLOOD UREA NITROGEN 26 MG/DL (9-23); CALCIUM LEVEL 9.9 MG/DL (8.3-10.6); CARBON DIOXIDE LEVEL 27 MMOL/L (20-31); CHLORIDE LEVEL 104 MMOL/L (98-107); CREATININE FOR GFR 0.85 MG/DL (0.55-1.30); GLOMERULAR FILTRATION RATE > 60.0 (>39); GLUCOSE, FASTING 398 MG/DL (74-106); POTASSIUM SERUM 4.6 MMOL/L (3.5-5.1); SODIUM LEVEL 138 MMOL/L (136-145); TOTAL PROTEIN 7.5 G/DL (5.7-8.2)
[2024-12-17 21:39] LABS: THYROID STIMULATING HORMONE 0.942 uIU/ML (0.55-4.78)
[2024-12-17 22:32] LABS: KETONE, URINE AUTO RFX NEGATIVE (NEGATIVE); LEUKOCYTE ESTERASE UR AUTO RFX NEGATIVE (NEGATIVE); MUCUS, URINE RFX SMALL (NEGATIVE); NITRITE, URINE AUTO RFX NEGATIVE (NEGATIVE); RBC, URINE AUTO RFX 4 /HPF (0-3); SQUAM EPITHELIAL CELL UR AURFX 0 /HPF (0-6); WBC, URINE AUTO RFX 1 /HPF (0-3)
[2024-12-17 22:51] LABS: AMPHETAMINES LEVEL URINE NEGATIVE (NEGATIVE); BARBITURATES URINE NEGATIVE (NEGATIVE); BENZODIAZEPINES URINE NEGATIVE (NEGATIVE); CANNABINOIDS URINE NEGATIVE (NEGATIVE); COCAINE METABOLITE URINE NEGATIVE (NEGATIVE); METHADONE URINE NEGATIVE (NEGATIVE); OPIATES URINE NEGATIVE (NEGATIVE); PHENCYCLIDINE URINE NEGATIVE (NEGATIVE)
[2024-12-18 00:33] VITALS: BP 174/77; TEMP 98.6; O2SAT 100
== END 2024-12-18 00:40 | disposition home or self-care (01) ==
LOC: EDBD 19:29 → M ED 19:29
DX: E11.65 Type 2 diabetes mellitus with hyperglycemia (principal); F03.90 Unspecified dementia, unspecified severity, without behavioral disturbance, psychotic disturbance, mood disturbance, and anxiety; I67.82 Cerebral ischemia; I10 Essential (primary) hypertension; E78.5 Hyperlipidemia, unspecified; K21.9 Gastro-esophageal reflux disease without esophagitis; J44.9 Chronic obstructive pulmonary disease, unspecified; Z88.1 Allergy status to other antibiotic agents; R94.31 Abnormal electrocardiogram [ECG] [EKG]; Z79.4 Long term (current) use of insulin; Z79.899 Other long term (current) drug therapy